=== PATIENT | male | born 1980 | race Caucasian/White ===

== ENCOUNTER 2018-07-26 15:20 | Inpatient (IN) ==
[2018-07-26] MEDS ORDERED: *HR* FentaNYL (PF) 100 MCG/2 ML VIAL IVP ONE ×2 (17:25→22:41)
[2018-07-26] MEDS ORDERED: 0.9 % Sodium Chloride 1,000 ML IVC ONE ×3 (17:25→23:55)
[2018-07-26] MEDS ORDERED: Isovue-370 500 ML BOTTLE IVP ONE (17:25)
--- NOTE | 2018-07-26 17:33 | Emergency Department Note ---
Disposition Clinical Impression: Leukocytosis, Lower abdominal pain Disposition: Still a Patient Condition: Good Referrals: Demi Rogers CNP [Primary Care Provider] - Forms: ED Satisfaction Letter, Work/School Release Abdominal Pain HPI - General Chief Complaint: ED Abdominal Pain Stated Complaint: ABD Pain Time Seen by Provider: 07/26/18 17:12 Source: patient Mode of arrival: private vehicle Limitations: no limitations Nursing Notes Reviewed: Yes Vital Signs Reviewed: Yes - History of Present Illness HPI Narrative: 38-year-old male presents to the ER with a complaint of abdominal pain. Symptoms began roughly 1 hour prior to arrival at work. Reports pain under his umbilicus to his suprapubic area. He denies any nausea vomiting or diarrhea. No fevers or chills. No chest pain or shortness of breath. Does report he had pain with urination immediately afterwards. No pain into his testicles. No prior abdominal surgical history. No other complaints. Pt Subjective Complaint: abdominal pain Onset (ago): hour(s) Consistency: constant Location: periumbilical, suprapubic Pain Scale: 9 Radiation: none Migration to: no migration Improves with: nothing Worsens with: nothing Associated symptoms: Reports: dysuria. Denies: nausea, vomiting, diarrhea, fever, hematuria Treatments prior to arrival: none - Related Data Home Medications Medication Instructions Recorded Confirmed Losartan Potassium [Cozaar] 100 mg PO DAILY 01/07/17 01/07/17 RX: Triamterene/HCTZ 37.5/25mg 1 cap PO DAILY 01/07/17 01/07/17 [Dyazide] cloNIDine HCl [CloNIDine HCl] 0.1 mg PO HS PRN MDD >160/90 01/07/17 01/07/17 Previous Rx's Medication Instructions Recorded Ondansetron [Zofran] 8 mg SL Q8HR PRN #20 tablet 01/07/17 Oxycodone HCl/Acetaminophen 1 each PO Q4H PRN #28 tablet 01/07/17 [Percocet 10-325 mg Tablet] Rivaroxaban [Xarelto] 10 mg PO 1700 #20 tablet 01/07/17 Allergies Allergy/AdvReac Type Severity Reaction Status Date / Time YANA Inhibitors AdvReac Dizziness Verified 01/07/17 10:26 codeine AdvReac Vomiting Verified 01/07/17 10:26 All systems ED: reviewed and negative except as stated. Constitutional: Denies: fever, chills Cardiovascular: Denies: chest pain Respiratory: Denies: dyspnea Gastrointestinal: Reports: abdominal pain. Denies: nausea, vomiting, diarrhea Genitourinary: Reports: dysuria. Denies: hematuria, discharge, testicular pain Abdominal Pain PMH - Past Medical History Medical history: Reports: hypertension Male Surgical History: Reports: other Psychiatric history: Reports: no psych history - Social History Smoking status: Never smoker Alcohol use: Reports: none Drug use: Reports: none Physical Exam - General Limitations: no limitations General appearance: alert, in no apparent distress - Head Head exam: atraumatic, normocephalic, normal inspection - Eye Eye exam: Present: normal appearance - ENT ENT exam: normal exam - Neck Neck exam: Present: normal inspection - Chest Chest inspection: Present: normal inspection, symmetric chest wall rise - Respiratory Respiratory exam: Present: normal lung sounds bilaterally - Cardiovascular Cardiovascular exam: Present: regular rate, normal rhythm, normal heart sounds - Abdominal Exam Abdominal exam: Present: soft, tenderness (Patient has periumbilical and suprapubic tenderness). Absent: distention, guarding, rigidity - Extremities Exam Extremities exam: Present: normal inspection, full ROM - Expanded Upper Extremity Exam Shoulder exam: Present: normal inspection, full ROM Arm exam: Present: normal inspection, full ROM Elbow exam: Present: normal inspection, full ROM Forearm/Wrist exam: Present: normal inspection, full ROM Hand exam: Present: normal inspection, full ROM - Expanded Lower Extremity Exam Hip/Pelvis exam: Present: normal inspection, full ROM Upper leg exam: Present: normal inspection, full ROM Knee exam: Present: normal inspection, full ROM Lower leg exam: Present: normal inspection, full ROM Ankle exam: Present: normal inspection, full ROM Foot/toe exam: Present: normal inspection, full ROM - Skin Skin exam: Present: warm, dry Course Course Narrative: Patient seen and examined. Vital signs reviewed. Plan for CT imaging, labs, urinalysis. Vital Signs Temperature 98.3 F 07/26/18 15:51 Pulse Rate 91 07/26/18 15:51 Respiratory Rate 16 07/26/18 15:51 Blood Pressure 162/94 07/26/18 15:51 O2 Sat by Pulse Oximetry 94 07/26/18 15:51 Temperature 98.3 F 07/26/18 15:51 Pulse Rate 91 07/26/18 15:51 Respiratory Rate 16 07/26/18 15:51 Blood Pressure 162/94 07/26/18 15:51 O2 Sat by Pulse Oximetry 94 07/26/18 15:51 Oxygen Delivery Oxygen Delivery Room Air Abdominal Pain - MDM Narrative Medical decision making narrative: 38-year-old male presenting with lower abdominal pain. Currently has a leukocytosis. CT imaging pending at this point. Patient signed out to [facility] team pending final disposition. - Lab Data Lab results reviewed: Yes I reviewed the patient's lab results. Result diagrams: 07/26/18 17:22 07/26/18 17:22 Lab Results 07/26/18 07/26/18 Range/Units 17:22 17:22 WBC 21.8 H (4.3-11.1) K/mcL RBC 5.64 H (4.19-5.50) M/mcL Hgb 14.8 (12.9-16.9) g/dL Hct 47.6 (37.5-50.1) % MCV 84.4 (83.0-100.0) fL MCH 26.2 L (28.0-33.3) pg MCHC 31.1 L (31.6-35.5) g/dL RDW 15.0 H (11.5-14.5) % Plt Count 282 (140-400) K/mcL MPV 10.5 (9.4-12.4) fL Immature Gran % 0.4 (0-4) % Seg Neutrophils % 85.8 % Lymphocytes % 7.2 % Monocytes % 5.5 % Eosinophils % 0.9 % Basophils % 0.2 % Neutrophils # 18.7 H (1.6-8.9) K/mcL Lymphocytes # 1.6 (0.6-4.6) K/mcL Monocytes # 1.2 (0.0-1.3) K/mcL Eosinophils # 0.2 (0.0-0.6) K/mcL Basophils # 0.0 (0.0-0.2) K/mcL Sodium 137 (136-145) mEq/L Potassium 4.4 (3.5-5.1) mEq/L Chloride 105 (98-107) mEq/L Carbon Dioxide 29 (23-29) mEq/L BUN 17 (6-20) mg/dL Creatinine 1.24 (0.70-1.30) mg/dL Est GFR ( Amer) > 60 (> 60) Est GFR (Non-Af Amer) > 60 (> 60) BUN/Creatinine Ratio 14 (6-26) Glucose 142 H (70-105) mg/dL Calculated Osmolality 288 (280-300) Calcium 10.0 (8.6-10.3) mg/dL Total Bilirubin 0.4 (0.3-1.0) mg/dL Direct Bilirubin 0.1 (0.0-0.2) mg/dL Indirect Bilirubin 0.3 (0.0-1.2) mg/dL AST 42 H (13-39) Units/L ALT 81 H (7-52) Units/L Alkaline Phosphatase 73 (34-104) Units/L Serum Total Protein 7.6 (6.4-8.9) g/dL Albumin 4.4 (3.5-5.7) g/dL Globulin 3.2 (2.4-3.5) g/dL Albumin/Globulin Ratio 1.4 (1.1-2.2) Lipase 16 (11-82) Units/L S.B.A.R. - S.B.A.R. Situation: Demographics, MOA Background: Presenting Complaint, Relevant PMH, Meds, & Allergies Assessment: Course and respsone to treatment, Exam Concerns, Patient/Family Expectation, Pertinant Lab Results Recommendation: Barrier(s) to disposition, Recommendation based on pending studies, treatments, or consults S.B.A.R. Report Given to: Dr. Allan Attestation Statement - Attestation Attestation: Resident Attestation: I examined this patient and my medical decision making was reviewed with the Resident Physician. I agree with the documented findings, disposition and treatment plan as described except to the extent set forth below. We independently had [id number] contact with the patient. Patient presenting for evaluation of abdominal pain. Patient states abdominal pain started approximately 1 hour ago. Patient states lower abdomen suprapubic in nature radiating both right left lower quadrant. On exam the patient has significant tenderness the right lower quadrant with associated rebound tenderness. Patient undergoing further evaluation for possible appendicitis. Blood work and CT scan ordered. CT scan results and disposition signed out to Dr. Allan.
[2018-07-26 17:47] LABS: Basophils % 0.2 %; Eosinophils # 0.2 K/mcL (0.0-0.6); Eosinophils % 0.9 %; Hematocrit 47.6 % (37.5-50.1); Hemoglobin 14.8 g/dL (12.9-16.9); Immature Granulocytes % 0.4 % (0-4); Lymphocytes # 1.6 K/mcL (0.6-4.6); Lymphocytes % 7.2 %; Mean Corpuscular HGB Conc 31.1 g/dL (31.6-35.5); Mean Corpuscular Hemoglobin 26.2 pg (28.0-33.3); Mean Corpuscular Volume 84.4 fL (83.0-100.0); Mean Platelet Volume 10.5 fL (9.4-12.4); Monocytes # 1.2 K/mcL (0.0-1.3); Monocytes % 5.5 %; Neutrophils # 18.7 K/mcL (1.6-8.9); Platelet Count 282 K/mcL (140-400); Red Blood Count 5.64 M/mcL (4.19-5.50); Segmented Neutrophils % 85.8 %
[2018-07-26 18:00] LABS: Alanine Aminotransferase 81 Units/L (7-52); Albumin 4.4 g/dL (3.5-5.7); Albumin/Globulin Ratio 1.4 (1.1-2.2); Alkaline Phosphatase 73 Units/L (34-104); Aspartate Amino Transferase 42 Units/L (13-39); BUN/Creatinine Ratio 14 (6-26); Bilirubin,Direct 0.1 mg/dL (0.0-0.2); Bilirubin,Indirect 0.3 mg/dL (0.0-1.2); Bilirubin,Total 0.4 mg/dL (0.3-1.0); Blood Urea Nitrogen 17 mg/dL (6-20); Carbon Dioxide 29 mEq/L (23-29); Chloride 105 mEq/L (98-107); Globulin 3.2 g/dL (2.4-3.5); Glucose 142 mg/dL (70-105); Lipase 16 Units/L (11-82); Osmolality,Calculated 288 (280-300); Potassium 4.4 mEq/L (3.5-5.1); Sodium 137 mEq/L (136-145); Total Protein 7.6 g/dL (6.4-8.9); eGFR For Non-African Americans > 60 (> 60)
--- NOTE | 2018-07-26 18:51 | Emergency Department Note ---
Disposition Clinical Impression: Perforation of intestine due to diverticulitis of gastrointestinal tract Leukocytosis Qualifiers: Leukocytosis type: unspecified Qualified Code(s): D72.829 - Elevated white blood cell count, unspecified Disposition: Admitted As Inpatient Condition: Fair Referrals: Demi Rogers CNP [Primary Care Provider] - Forms: ED Satisfaction Letter, Work/School Release General Adult HPI - General Chief complaint: ED Abdominal Pain Stated complaint: ABD Pain Time Seen by Provider: 07/26/18 17:12 Source: patient Mode of arrival: private vehicle Limitations: no limitations - History of Present Illness Pain Scale: 9 - Related Data Home Medications Medication Instructions Recorded Confirmed Losartan Potassium [Cozaar] 100 mg PO DAILY 01/07/17 01/07/17 Triamterene/HCTZ 37.5/25mg 1 cap PO DAILY 01/07/17 01/07/17 [Dyazide] cloNIDine HCl [CloNIDine HCl] 0.1 mg PO HS PRN MDD >160/90 01/07/17 01/07/17 Previous Rx's Medication Instructions Recorded Ondansetron [Zofran] 8 mg SL Q8HR PRN #20 tablet 01/07/17 Oxycodone HCl/Acetaminophen 1 each PO Q4H PRN #28 tablet 01/07/17 [Percocet 10-325 mg Tablet] Rivaroxaban [Xarelto] 10 mg PO 1700 #20 tablet 01/07/17 Allergies Allergy/AdvReac Type Severity Reaction Status Date / Time YANA Inhibitors AdvReac Dizziness Verified 01/07/17 10:26 codeine AdvReac Vomiting Verified 01/07/17 10:26 Constitutional: Denies: fever, chills Cardiovascular: Denies: chest pain Respiratory: Denies: dyspnea Gastrointestinal: Reports: abdominal pain. Denies: nausea, vomiting, diarrhea Genitourinary: Reports: dysuria. Denies: hematuria, discharge, testicular pain Past Medical History - Past Medical History Medical history: Reports: hypertension Surgical history: Reports: non-contributory Psychiatric history: Reports: no psych history - Social History Smoking Status: Never smoker Smokeless Tobacco Status: No Alcohol use: Reports: none Drug use: Reports: none Physical Exam - General Limitations: no limitations General appearance: alert, in no apparent distress Course Vital Signs Temperature 98.3 F 07/26/18 15:51 Pulse Rate 91 07/26/18 15:51 Respiratory Rate 16 07/26/18 15:51 Blood Pressure 162/94 07/26/18 15:51 O2 Sat by Pulse Oximetry 94 07/26/18 15:51 Temperature 98.3 F 07/26/18 15:51 Pulse Rate 91 07/26/18 15:51 Respiratory Rate 16 07/26/18 15:51 Blood Pressure 162/94 07/26/18 15:51 O2 Sat by Pulse Oximetry 94 07/26/18 15:51 Oxygen Delivery Oxygen Delivery Room Air Medical Decision Making - Lab Data Result diagrams: 07/26/18 17:22 07/26/18 17:22 Lab Results 07/26/18 07/26/18 07/26/18 Range/Units 17:22 17:22 18:09 WBC 21.8 H (4.3-11.1) K/mcL RBC 5.64 H (4.19-5.50) M/mcL Hgb 14.8 (12.9-16.9) g/dL Hct 47.6 (37.5-50.1) % MCV 84.4 (83.0-100.0) fL MCH 26.2 L (28.0-33.3) pg MCHC 31.1 L (31.6-35.5) g/dL RDW 15.0 H (11.5-14.5) % Plt Count 282 (140-400) K/mcL MPV 10.5 (9.4-12.4) fL Immature Gran % 0.4 (0-4) % Seg Neutrophils % 85.8 % Lymphocytes % 7.2 % Monocytes % 5.5 % Eosinophils % 0.9 % Basophils % 0.2 % Neutrophils # 18.7 H (1.6-8.9) K/mcL Lymphocytes # 1.6 (0.6-4.6) K/mcL Monocytes # 1.2 (0.0-1.3) K/mcL Eosinophils # 0.2 (0.0-0.6) K/mcL Basophils # 0.0 (0.0-0.2) K/mcL Sodium 137 (136-145) mEq/L Potassium 4.4 (3.5-5.1) mEq/L Chloride 105 (98-107) mEq/L Carbon Dioxide 29 (23-29) mEq/L BUN 17 (6-20) mg/dL Creatinine 1.24 (0.70-1.30) mg/dL Est GFR ( Amer) > 60 (> 60) Est GFR (Non-Af Amer) > 60 (> 60) BUN/Creatinine Ratio 14 (6-26) Glucose 142 H (70-105) mg/dL Calculated Osmolality 288 (280-300) Calcium 10.0 (8.6-10.3) mg/dL Total Bilirubin 0.4 (0.3-1.0) mg/dL Direct Bilirubin 0.1 (0.0-0.2) mg/dL Indirect Bilirubin 0.3 (0.0-1.2) mg/dL AST 42 H (13-39) Units/L ALT 81 H (7-52) Units/L Alkaline Phosphatase 73 (34-104) Units/L Serum Total Protein 7.6 (6.4-8.9) g/dL Albumin 4.4 (3.5-5.7) g/dL Globulin 3.2 (2.4-3.5) g/dL Albumin/Globulin Ratio 1.4 (1.1-2.2) Lipase 16 (11-82) Units/L Urine Color Yellow (Yellow) Urine Clarity Clear (Clear) Urine pH 5.5 (5.0-8.0) pH Units Ur Specific [place] 1.022 (1.010-1.025) Urine Protein Negative (Neg-Trace) mg/dL Urine Glucose (UA) Normal (Normal) mg/dL Urine Ketones Negative (Negative) mg/dL Urine Blood Negative (Negative) Urine Nitrite Negative (Negative) Urine Bilirubin Negative (Negative) Urine Urobilinogen Normal (Normal) mg/dL Ur Leukocyte Esterase Negative (Negative) Ur Culture Indicated? NO (NO) Attestation Statement - Attestation Attestation: I examined this patient and my medical decision-making was reviewed with the Resident Physician. I agree with the documented findings, disposition and treatment plan as described except to the extent set forth below. Patient signed out pending CT. Patient reevaluated. He is resting comfortably but at this time. CT pending. CT shows a perforated sigmoid diverticulitis. Patient is given IV Zosyn. Admitted to surgery. Abdomen/Pelvis CT 07/26/18 17:25 IMPRESSION: Perforated sigmoid diverticulitis. Scattered foci of intraperitoneal air throughout the abdomen. Cholelithiasis. D/ / Rich Soria MD / Rich Soria MD Interpreting Provider: Rich Soria MD
[2018-07-26 18:53] LABS: Bilirubin,Urine Negative (Negative); Blood,Urine Negative (Negative); Clarity,Urine Clear (Clear); Color,Urine Yellow (Yellow); Glucose,Urine (UA) Normal (Normal); Ketones,Urine Negative (Negative); Leukocyte Esterase,Urine Negative (Negative); Nitrite,Urine Negative (Negative); PH,Urine 5.5 pH Units (5.0-8.0); Protein,Urine Negative (Neg-Trace); Specific Gravity,Urine 1.022 (1.010-1.025); Urobilinogen,Urine Normal (Normal)
--- NOTE | 2018-07-26 19:12 | Emergency Department Note ---
Addendum entered and electronically signed by Siena Davila DO 07/26/18 22:43: Updated on patient's vitals again. He remains tachycardic now in the 130s. He is now febrile as well. We will provide him with a gram of IV Tylenol. I spoke with the surgeon on-call again Dr. Louis. Her recommendations at this time where providing him with 1mg of dilaudid and obtaining an EKG to ensure that he is not atrial fibrillation. Patient has no history of atrial fibrillation. Does not use any anticoagulation. She has no further recommendations at this time. She is aware of the patient's vital signs. Addendum entered and electronically signed by Siena Davila DO 07/26/18 21:28: I was updated on the patient's vitals. He has now become tachycardic in the 120s. We will start a second liter of fluids. I updated the surgeon on-call Rajan Louis. No further recommendations at this time. Original Note: Disposition Clinical Impression: Perforation of intestine due to diverticulitis of gastrointestinal tract Leukocytosis Qualifiers: Leukocytosis type: unspecified Qualified Code(s): D72.829 - Elevated white blood cell count, unspecified Disposition: Admitted As Inpatient Condition: Fair Referrals: Demi Rogers CNP [Primary Care Provider] - Forms: ED Satisfaction Letter, Work/School Release General Adult HPI - General Chief complaint: ED Abdominal Pain Stated complaint: ABD Pain Time Seen by Provider: 07/26/18 17:12 Source: patient Mode of arrival: private vehicle Limitations: no limitations - History of Present Illness Pain Scale: 9 - Related Data Home Medications Medication Instructions Recorded Confirmed Losartan Potassium [Cozaar] 100 mg PO DAILY 01/07/17 01/07/17 Triamterene/HCTZ 37.5/25mg 1 cap PO DAILY 01/07/17 01/07/17 [Dyazide] cloNIDine HCl [CloNIDine HCl] 0.1 mg PO HS PRN MDD >160/90 01/07/17 01/07/17 Previous Rx's Medication Instructions Recorded Ondansetron [Zofran] 8 mg SL Q8HR PRN #20 tablet 01/07/17 Oxycodone HCl/Acetaminophen 1 each PO Q4H PRN #28 tablet 01/07/17 [Percocet 10-325 mg Tablet] Rivaroxaban [Xarelto] 10 mg PO 1700 #20 tablet 01/07/17 Allergies Allergy/AdvReac Type Severity Reaction Status Date / Time YANA Inhibitors AdvReac Dizziness Verified 01/07/17 10:26 codeine AdvReac Vomiting Verified 01/07/17 10:26 Constitutional: Denies: fever, chills Cardiovascular: Denies: chest pain Respiratory: Denies: dyspnea Gastrointestinal: Reports: abdominal pain. Denies: nausea, vomiting, diarrhea Genitourinary: Reports: dysuria. Denies: hematuria, discharge, testicular pain Past Medical History - Past Medical History Medical history: Reports: hypertension Surgical history: Reports: non-contributory Psychiatric history: Reports: no psych history - Social History Smoking Status: Never smoker Smokeless Tobacco Status: No Alcohol use: Reports: none Drug use: Reports: none Physical Exam - General Limitations: no limitations General appearance: alert, in no apparent distress Course Course Narrative: Patient signed out to me by the day team pending urine analysis and CT of abdomen and pelvis. Please refer to their documentation for entire history of present illness. In short patient presenting with lower abdominal pain. At this time patient remains alert and oriented 3 and hemodynamically stable. Disposition pending. Patient agrees with this plan. - Reevaluation(s) Reevaluation #1: Patient CT of abdomen and pelvis concerning for perforated diverticulitis. I spoke with the surgeon on-call Dr. Louis who agrees to accept the patient to her service. We will start the patient on Zosyn at this time. Patient remains alert and oriented 3 and hemodynamically stable. Patient states pain is well under control at this time. Vital Signs Temperature 98.3 F 07/26/18 15:51 Pulse Rate 91 07/26/18 15:51 Respiratory Rate 16 07/26/18 15:51 Blood Pressure 162/94 07/26/18 15:51 O2 Sat by Pulse Oximetry 94 07/26/18 15:51 Temperature 98.3 F 07/26/18 15:51 Pulse Rate 91 07/26/18 15:51 Respiratory Rate 16 07/26/18 15:51 Blood Pressure 162/94 07/26/18 15:51 O2 Sat by Pulse Oximetry 94 07/26/18 15:51 Oxygen Delivery Oxygen Delivery Room Air Medical Decision Making - Lab Data Result diagrams: 07/26/18 17:22 07/26/18 17:22 Lab Results 07/26/18 07/26/18 07/26/18 Range/Units 17:22 17:22 18:09 WBC 21.8 H (4.3-11.1) K/mcL RBC 5.64 H (4.19-5.50) M/mcL Hgb 14.8 (12.9-16.9) g/dL Hct 47.6 (37.5-50.1) % MCV 84.4 (83.0-100.0) fL MCH 26.2 L (28.0-33.3) pg MCHC 31.1 L (31.6-35.5) g/dL RDW 15.0 H (11.5-14.5) % Plt Count 282 (140-400) K/mcL MPV 10.5 (9.4-12.4) fL Immature Gran % 0.4 (0-4) % Seg Neutrophils % 85.8 % Lymphocytes % 7.2 % Monocytes % 5.5 % Eosinophils % 0.9 % Basophils % 0.2 % Neutrophils # 18.7 H (1.6-8.9) K/mcL Lymphocytes # 1.6 (0.6-4.6) K/mcL Monocytes # 1.2 (0.0-1.3) K/mcL Eosinophils # 0.2 (0.0-0.6) K/mcL Basophils # 0.0 (0.0-0.2) K/mcL Sodium 137 (136-145) mEq/L Potassium 4.4 (3.5-5.1) mEq/L Chloride 105 (98-107) mEq/L Carbon Dioxide 29 (23-29) mEq/L BUN 17 (6-20) mg/dL Creatinine 1.24 (0.70-1.30) mg/dL Est GFR ( Amer) > 60 (> 60) Est GFR (Non-Af Amer) > 60 (> 60) BUN/Creatinine Ratio 14 (6-26) Glucose 142 H (70-105) mg/dL Calculated Osmolality 288 (280-300) Calcium 10.0 (8.6-10.3) mg/dL Total Bilirubin 0.4 (0.3-1.0) mg/dL Direct Bilirubin 0.1 (0.0-0.2) mg/dL Indirect Bilirubin 0.3 (0.0-1.2) mg/dL AST 42 H (13-39) Units/L ALT 81 H (7-52) Units/L Alkaline Phosphatase 73 (34-104) Units/L Serum Total Protein 7.6 (6.4-8.9) g/dL Albumin 4.4 (3.5-5.7) g/dL Globulin 3.2 (2.4-3.5) g/dL Albumin/Globulin Ratio 1.4 (1.1-2.2) Lipase 16 (11-82) Units/L Urine Color Yellow (Yellow) Urine Clarity Clear (Clear) Urine pH 5.5 (5.0-8.0) pH Units Ur Specific [place] 1.022 (1.010-1.025) Urine Protein Negative (Neg-Trace) mg/dL Urine Glucose (UA) Normal (Normal) mg/dL Urine Ketones Negative (Negative) mg/dL Urine Blood Negative (Negative) Urine Nitrite Negative (Negative) Urine Bilirubin Negative (Negative) Urine Urobilinogen Normal (Normal) mg/dL Ur Leukocyte Esterase Negative (Negative) Ur Culture Indicated? NO (NO)
[2018-07-26] MEDS ORDERED: Piperacillin/Tazobactam 3.375 GM in 0.9 % Sodium Chloride Mini Bag 100 ML IVPB ONE (19:42)
[2018-07-26 22:05] LABS: Prothrombin Time 11.8 Seconds (9.4-12.1)
[2018-07-26] MEDS ORDERED: Acetaminophen IV 1,000 MG/100 ML INFUS..BTL IVPB ONE (22:38)
[2018-07-26] MEDS ORDERED: *HR* HYDROmorphone (PF) 1 MG/ML SYRINGE IVP ONE (22:42)
[2018-07-26] MEDS ORDERED: OXYCODONE Oral CONC 10 MG/0.5 ML ORAL.SYG SL PRN (23:52)
[2018-07-26] MEDS ORDERED: *HR* Promethazine 25 MG/ML VIAL IVP PRN (23:52)
[2018-07-26] MEDS ORDERED: Naloxone 0.4 MG/ML INJ IVP PRN (23:52)
[2018-07-26] MEDS ORDERED: Ondansetron 4 MG/2 ML VIAL IVP PRN (23:52)
[2018-07-27] MEDS ORDERED: Acetaminophen IV 1,000 MG/100 ML INFUS..BTL IVPB SCH
[2018-07-27] MEDS ORDERED: Piperacillin/Tazobactam 3.375 GM in 0.9 % Sodium Chloride Mini Bag 100 ML IVPB SCH
[2018-07-27] MEDS ORDERED: 0.9 % Sodium Chloride 1,000 ML ONE (00:05)
[2018-07-27] MEDS: Fluconazole 200 MG/100 ML 200 MG/100 ML BAG IVPB SCH ×2 (00:55→07:23)
[2018-07-27] MEDS: 0.9 % Sodium Chloride 1,000 ML IVC SCH ×4 (00:58→23:47)
[2018-07-27 03:05] LABS: Basophils % 0.1 %; Hematocrit 39.9 % (37.5-50.1); Immature Granulocytes % 0.4 % (0-4); Lymphocytes # 1.7 K/mcL (0.6-4.6); Lymphocytes % 8.6 %; Mean Corpuscular HGB Conc 32.3 g/dL (31.6-35.5); Mean Corpuscular Hemoglobin 27.2 pg (28.0-33.3); Mean Corpuscular Volume 84.2 fL (83.0-100.0); Mean Platelet Volume 10.4 fL (9.4-12.4); Monocytes # 1.4 K/mcL (0.0-1.3); Neutrophils # 16.9 K/mcL (1.6-8.9); Platelet Count 245 K/mcL (140-400); Red Blood Count 4.74 M/mcL (4.19-5.50); Red Cell Distribution Width 15.5 % (11.5-14.5); Segmented Neutrophils % 83.9 %
[2018-07-27 03:06] LABS: Hemoglobin 12.9 g/dL (12.9-16.9)
[2018-07-27 03:25] LABS: BUN/Creatinine Ratio 16 (6-26); Blood Urea Nitrogen 20 mg/dL (6-20); Calcium 8.2 mg/dL (8.6-10.3); Carbon Dioxide 24 mEq/L (23-29); Chloride 108 mEq/L (98-107); Glucose 127 mg/dL (70-105); Magnesium 1.8 mg/dL (1.6-2.6); Osmolality,Calculated 294 (280-300); Phosphorous 5.4 mg/dL (2.7-4.5); Potassium 4.1 mEq/L (3.5-5.1); Sodium 140 mEq/L (136-145); eGFR For Non-African Americans > 60 (> 60)
[2018-07-27] MEDS: Piperacillin/Tazobactam 3.375 GM in 0.9 % Sodium Chloride Mini Bag 100 ML IVPB SCH ×3 (04:32→19:59)
[2018-07-27] MEDS: Acetaminophen IV 1,000 MG/100 ML INFUS..BTL IVPB SCH ×3 (05:21→17:30)
[2018-07-27] MEDS: OXYCODONE Oral CONC 10 MG/0.5 ML ORAL.SYG SL PRN ×4 (07:22→23:20)
[2018-07-27] MEDS: Pantoprazole 40 MG VIAL IVP SCH (07:23)
--- NOTE | 2018-07-27 09:39 | General Surg History&Physical ---
Date of Encounter: 07/27/18 Time of Encounter: 09:35 Assessment and Plan (1) Perforation of sigmoid colon due to diverticulitis Current Visit: Yes Status: Acute The assessment and plan as outlined above was discussed with the patient and/or family members who expressed understanding and agreement. All questions were answered. Discussed with patient that I have personally reviewed his CT results and he has acute perforated diverticulitis with small areas of free air. It is encouraging he has less pain today. Discussed that ideally I would like to get him over this episode of diverticulitis with medical management and plan outpatient colonoscopy. Discussed there is a possibility he could fail conservative therapy and require surgery which would be a Silvia procedure. He could develop intra- abdominal abscess that may require IR drainage or prolonged Abx therapy. He expressed understanding conservative therapy currently antibiotics prn pain control npo ok ice chips ivf hydration prn antiemetics serial abdominal exams gi/dvt prophylaxis ambulation (2) HTN (hypertension) Current Visit: Yes Status: Chronic The assessment and plan as outlined above was discussed with the patient and/or family members who expressed understanding and agreement. All questions were answered. monitor continue home meds Qualifiers: Hypertension type: essential hypertension Qualified Code(s): I10 - Essential (primary) hypertension (3) Obesity Current Visit: Yes Status: Chronic The assessment and plan as outlined above was discussed with the patient and/or family members who expressed understanding and agreement. All questions were answered. Qualifiers: Obesity type: due to excess calories Serious obesity comorbidity presence: with serious comorbidity Body mass index: BMI 40.0-44.9 Qualified Code(s): E66.01 - Morbid (severe) obesity due to excess calories; Z68.41 - Body mass index (BMI) 40.0-44.9, adult (4) Leukocytosis Current Visit: Yes Status: Acute The assessment and plan as outlined above was discussed with the patient and/or family members who expressed understanding and agreement. All questions were answered. trend wbc, continue abx - zosyn, diflucan Qualifiers: Leukocytosis type: unspecified Qualified Code(s): D72.829 - Elevated white blood cell count, unspecified History of Present Illness Chief complaint: lower abdominal pain HPI: Mr. Liao is a 38 year old male who started having lower abdominal pain, severe, yesterday about 3 pm. Pain started suddenly, no radiation. Some nausea but no emesis. No diarrhea. He felt like he needed to use the bathroom, no results. Has had a bm in the last 24 hrs, no melena or hematochezia. No diarrhea or constipation. No previous colonoscopy. Never had diverticulitis before. Swe ats but no fevers. Came to ED and CT was done showing perforated diverticulitis with punctate areas near colon and other small pockets free air, with sigmoid diverticulitis. WBC elevated. GERALD with elevated Cr Today he feels better than when he presented to the ED. Pain is not gone but is better and he is less tender per patient. No nausea or emesis. Still passing flatus. Patient denies he takes xarelto Past Med Surg Social Fam HX - Past Medical History Source: patient Medical history: hypertension, other (obesity) Psychiatric history: no psych history - Past Surgical History Surgical History: other (see below) Additional surgical history: fx rt tib/fib. fx both hand fx. nasal fx. t&A - Social History Smoking Status: Never smoker Smokeless Tobacco Status: Yes (Daily) Alcohol use: none Drug use: none Occupational status: employed Current living situation: Home - Independent Activity Level: Independent ambulation Medications and Allergies Losartan Potassium [Cozaar] 100 mg PO DAILY 01/07/17 [History] Ondansetron [Zofran] 8 mg SL Q8HR PRN #20 tablet 01/07/17 [Rx] Oxycodone HCl/Acetaminophen [Percocet 10-325 mg Tablet] 1 each PO Q4H PRN #28 tablet 01/07/17 [Rx] RX: Triamterene/HCTZ 37.5/25mg [Dyazide] 1 cap PO DAILY 01/07/17 [History] Rivaroxaban [Xarelto] 10 mg PO 1700 #20 tablet 01/07/17 [Rx] cloNIDine HCl [CloNIDine HCl] 0.1 mg PO HS PRN MDD >160/90 01/07/17 [History] Allergy/AdvReac Type Severity Reaction Status Date / Time YANA Inhibitors AdvReac Dizziness Verified 01/07/17 10:26 codeine AdvReac Vomiting Verified 01/07/17 10:26 Review of Systems All systems PM: reviewed and no additional remarkable complaints except as stated All systems PM: The remainder of the systems were reviewed and are negative General Surgery Exam Initial Vital Signs Temp Pulse Resp BP Pulse Ox 98.3 F 91 16 162/94 94 07/26/18 15:51 07/26/18 15:51 07/26/18 15:51 07/26/18 15:51 07/26/18 15:51 - General physical appearance well developed, well nourished, no distress, obese - Eyes PERRL, normal ocular movement - ENT normal mucosa, normocephalic - Neck trachea midline - Respiratory normal expansion, clear to auscultation - Cardiovascular Cardiovascular exam: Present: RRR - Abdomen Abdomen general surgery: Present: bowel sounds present, soft, distended, tender. Absent: guarding, rebound Abdominal Tenderness: Present: RLQ, LLQ - Integumentary Integumentary general surgery: Present: warm and dry - Neurologic Present: CN 2-12 grossly intact - Musculoskeletal Present: normal posture - Psychiatric Psychiatric general surgery: Present: A&Ox3 Results - Labs 07/27/18 02:54 07/27/18 02:54 Abnormal lab results WBC 20.2 K/mcL (4.3-11.1) H 07/27/18 02:54 MCH 27.2 pg (28.0-33.3) L 07/27/18 02:54 RDW 15.5 % (11.5-14.5) H 07/27/18 02:54 Neutrophils # 16.9 K/mcL (1.6-8.9) H 07/27/18 02:54 Monocytes # 1.4 K/mcL (0.0-1.3) H 07/27/18 02:54 Chloride 108 mEq/L (98-107) H 07/27/18 02:54 Glucose 127 mg/dL (70-105) H 07/27/18 02:54 Calcium 8.2 mg/dL (8.6-10.3) L 07/27/18 02:54 Phosphorus 5.4 mg/dL (2.7-4.5) H 07/27/18 02:54 AST 42 Units/L (13-39) H 07/26/18 17:22 ALT 81 Units/L (7-52) H 07/26/18 17:22 Diabetes panel 07/26/18 07/27/18 Range/Units 17:22 02:54 Sodium 137 140 (136-145) mEq/L Potassium 4.4 4.1 (3.5-5.1) mEq/L Chloride 105 108 H (98-107) mEq/L Carbon Dioxide 29 24 (23-29) mEq/L BUN 17 20 (6-20) mg/dL Creatinine 1.24 1.23 (0.70-1.30) mg/dL Glucose 142 H 127 H (70-105) mg/dL Calcium 10.0 8.2 L (8.6-10.3) mg/dL AST 42 H (13-39) Units/L ALT 81 H (7-52) Units/L Alkaline Phosphatase 73 (34-104) Units/L Albumin 4.4 (3.5-5.7) g/dL Calcium panel 07/26/18 07/27/18 Range/Units 17:22 02:54 Calcium 10.0 8.2 L (8.6-10.3) mg/dL Phosphorus 5.4 H (2.7-4.5) mg/dL Albumin 4.4 (3.5-5.7) g/dL Pituitary panel 07/26/18 07/27/18 Range/Units 17:22 02:54 Sodium 137 140 (136-145) mEq/L Potassium 4.4 4.1 (3.5-5.1) mEq/L Chloride 105 108 H (98-107) mEq/L Carbon Dioxide 29 24 (23-29) mEq/L BUN 17 20 (6-20) mg/dL Creatinine 1.24 1.23 (0.70-1.30) mg/dL Glucose 142 H 127 H (70-105) mg/dL Calcium 10.0 8.2 L (8.6-10.3) mg/dL Adrenal panel 07/26/18 07/27/18 Range/Units 17:22 02:54 Sodium 137 140 (136-145) mEq/L Potassium 4.4 4.1 (3.5-5.1) mEq/L Chloride 105 108 H (98-107) mEq/L Carbon Dioxide 29 24 (23-29) mEq/L BUN 17 20 (6-20) mg/dL Creatinine 1.24 1.23 (0.70-1.30) mg/dL Glucose 142 H 127 H (70-105) mg/dL Calcium 10.0 8.2 L (8.6-10.3) mg/dL Total Bilirubin 0.4 (0.3-1.0) mg/dL AST 42 H (13-39) Units/L ALT 81 H (7-52) Units/L Alkaline Phosphatase 73 (34-104) Units/L Albumin 4.4 (3.5-5.7) g/dL All other labs normal. - Imaging CT scan - abdomen: report reviewed, image reviewed CT scan - pelvis: report reviewed, image reviewed
[2018-07-27] MEDS: cloNIDine HCl 0.1 MG TABLET PO PRN (23:19)
[2018-07-28] MEDS: Acetaminophen IV 1,000 MG/100 ML INFUS..BTL IVPB SCH ×5 (00:30→23:33)
[2018-07-28] MEDS: Piperacillin/Tazobactam 3.375 GM in 0.9 % Sodium Chloride Mini Bag 100 ML IVPB SCH ×3 (03:54→19:22)
[2018-07-28 05:42] LABS: Basophils % 0.2 %; Eosinophils # 0.1 K/mcL (0.0-0.6); Eosinophils % 0.4 %; Hemoglobin 12.3 g/dL (12.9-16.9); Immature Granulocytes % 0.6 % (0-4); Lymphocytes # 1.4 K/mcL (0.6-4.6); Lymphocytes % 7.7 %; Mean Corpuscular HGB Conc 31.5 g/dL (31.6-35.5); Mean Corpuscular Volume 85.7 fL (83.0-100.0); Mean Platelet Volume 10.8 fL (9.4-12.4); Monocytes # 1.1 K/mcL (0.0-1.3); Monocytes % 6.1 %; Neutrophils # 15.8 K/mcL (1.6-8.9); Platelet Count 210 K/mcL (140-400); Red Blood Count 4.55 M/mcL (4.19-5.50); Red Cell Distribution Width 15.9 % (11.5-14.5)
[2018-07-28 05:55] LABS: Magnesium 1.9 mg/dL (1.6-2.6); Phosphorous 3.7 mg/dL (2.7-4.5)
[2018-07-28 05:56] LABS: BUN/Creatinine Ratio 14 (6-26); Blood Urea Nitrogen 17 mg/dL (6-20); Calcium 8.6 mg/dL (8.6-10.3); Carbon Dioxide 26 mEq/L (23-29); Chloride 105 mEq/L (98-107); Glucose 92 mg/dL (70-105); Osmolality,Calculated 291 (280-300); Potassium 3.8 mEq/L (3.5-5.1); Sodium 140 mEq/L (136-145); eGFR For Non-African Americans > 60 (> 60)
[2018-07-28] MEDS: 0.9 % Sodium Chloride 1,000 ML IVC SCH ×3 (07:26→23:33)
[2018-07-28] MEDS: Fluconazole 200 MG/100 ML 200 MG/100 ML BAG IVPB SCH (07:27)
[2018-07-28] MEDS: Pantoprazole 40 MG VIAL IVP SCH (07:29)
--- NOTE | 2018-07-28 09:40 | General Surgery Progress Note ---
<Ayanna Gupta - Last Filed: 07/28/18 09:38> Date of Encounter: 07/28/18 Time of Encounter: 09:20 - Assessment and Plan (1) Perforation of sigmoid colon due to diverticulitis Current Visit: Yes Status: Acute CT showed acute perforated diverticulitis with small areas of free air Today, patient feels better. Abdominal pain is improved. Fever 100.7 last night. Conservative therapy currently Plan for colonoscopy as outpatient Continue antibiotics - zosyn + diflucan prn pain control ivf hydration prn antiemetics serial abdominal exams gi/dvt prophylaxis ambulation (2) Leukocytosis Current Visit: Yes Status: Acute WBC downtrending Continue abx Continue to monitor Qualifiers: Leukocytosis type: unspecified Qualified Code(s): D72.829 - Elevated white blood cell count, unspecified Subjective Narrative: Patient seen and examined. He is resting comfortably in bed. Patient states he feels better today. Abdominal pain is still there but improved. Indicates pain at bilateral lower abdomen. No nausea/vomiting. Had a fever of 100.7 last night but patient does not recall having fever. Passing flatus. No bowel movement. Denies any other complaints. Patient requests to advance diet because he feels thirsty. Objective Vital Signs - Last 8 Hours Temp Pulse Resp BP Pulse Ox 07/28/18 07:18 98.2 F 91 16 125/81 96 07/28/18 02:05 98.5 F 96 15 138/84 100 Intake and Output 07/27/18 07/28/18 07/28/18 23:59 07:59 15:59 Intake Total 1900 / 1900 1300 / 1300 100 / 100 Output Total 650 / 650 650 / 650 Balance 1250 / 1250 650 / 650 100 / 100 Intake: IV Fluids 1900 / 1900 1300 / 1300 100 / 100 0.9 % Sodium Chloride 1,000 ML 1700 / 1700 1000 / 1000 @ 135 mls/hr IVC .Q7H25M [facility] Rx #:[id number] Ofirmev 1,000 mg/100 ml 1,000 100 / 100 200 / 200 mg In 100 ml @ 400 mls/hr IVPB Q6HR [facility] Rx#:[id number] Diflucan Premix 200 MG/100 ML 100 / 100 200 mg In 100 ml @ 100 mls/hr IVPB DAILY [facility] Rx#:[id number] Zosyn 3.375 GM In 0.9 % Sodium 100 / 100 100 / 100 Chloride (Mini-Bag +) 100 ML @ 25 mls/hr IVPB Q8H [facility] Rx#: [id number] Oral 0 / 0 Output: Urine 650 / 650 650 / 650 Other: Meal NPO Blood Glucose* 90 96 - Additional Exam VITAL SIGNS: Reviewed. See [facility] GENERAL: In no apparent distress. HEENT: Normocephalic, atraumatic, pupils are equal and reactive, extraocular motions intact, oral mucosa pink and moist. CHEST/RESPIRATORY: The thorax is free from signs of trauma. Lung sounds: clear to auscultation, normal respiratory effort CARDIAC: Regular rate and rhythm. Normal S1 and S2, without murmurs, gallops, or rubs. VASCULAR: No edema. ABDOMEN: Soft. Obese. Mild diffuse tenderness to palpation. Bowel sounds present. MUSCULOSKELETAL: Good range of motion of all major joints. Extremities without clubbing or cyanosis. NEUROLOGIC EXAM: Alert and oriented x 3. Speech normal. Follows commands. PSYCHIATRIC: Mood normal. SKIN: No rash or lesions. - Labs 07/28/18 03:37 07/28/18 03:37 Diabetes panel 07/28/18 Range/Units 03:37 Sodium 140 (136-145) mEq/L Potassium 3.8 (3.5-5.1) mEq/L Chloride 105 (98-107) mEq/L Carbon Dioxide 26 (23-29) mEq/L BUN 17 (6-20) mg/dL Creatinine 1.19 (0.70-1.30) mg/dL Glucose 92 (70-105) mg/dL Calcium 8.6 (8.6-10.3) mg/dL Calcium panel 07/28/18 07/28/18 Range/Units 03:37 03:37 Calcium 8.6 (8.6-10.3) mg/dL Phosphorus 3.7 (2.7-4.5) mg/dL Pituitary panel 07/28/18 Range/Units 03:37 Sodium 140 (136-145) mEq/L Potassium 3.8 (3.5-5.1) mEq/L Chloride 105 (98-107) mEq/L Carbon Dioxide 26 (23-29) mEq/L BUN 17 (6-20) mg/dL Creatinine 1.19 (0.70-1.30) mg/dL Glucose 92 (70-105) mg/dL Calcium 8.6 (8.6-10.3) mg/dL Adrenal panel 07/28/18 Range/Units 03:37 Sodium 140 (136-145) mEq/L Potassium 3.8 (3.5-5.1) mEq/L Chloride 105 (98-107) mEq/L Carbon Dioxide 26 (23-29) mEq/L BUN 17 (6-20) mg/dL Creatinine 1.19 (0.70-1.30) mg/dL Glucose 92 (70-105) mg/dL Calcium 8.6 (8.6-10.3) mg/dL Consult Discharge Plan - Plan Referrals: Demi Rogers, [facility] [Primary Care Provider] - <Tamiko Louis - Last Filed: 07/28/18 15:39> Date of Encounter: 07/28/18 - Assessment and Plan (1) Perforation of sigmoid colon due to diverticulitis Current Visit: Yes Status: Acute patient improving daily continue antibiotics ok start clears today low residue diet teaching continue ivf hydration prn pain control OOB chair with meals ok shower (2) HTN (hypertension) Current Visit: Yes Status: Chronic continue home meds Qualifiers: Hypertension type: essential hypertension Qualified Code(s): I10 - Essential (primary) hypertension (3) Obesity Current Visit: Yes Status: Chronic Qualifiers: Obesity type: due to excess calories Serious obesity comorbidity presence: with serious comorbidity Body mass index: BMI 40.0-44.9 (4) Leukocytosis Current Visit: Yes Status: Acute slowly improving, continue antibiotics continue trend wbc no bands Qualifiers: Leukocytosis type: unspecified Qualified Code(s): D72.829 - Elevated white blood cell count, unspecified Subjective Patient reports: no new complaints, feels better, still having pain, pain is less, flatus, no bowel movement, afebrile Objective Vital Signs - Last 8 Hours Temp Pulse Resp BP Pulse Ox 07/28/18 14:56 98.2 F 81 17 133/65 96 07/28/18 10:58 98.4 F 90 15 144/92 98 Intake and Output 07/27/18 07/28/18 07/28/18 23:59 07:59 15:59 Intake Total 1900 / 1900 1300 / 1300 1060 / 1060 Output Total 650 / 650 650 / 650 800 / 800 Balance 1250 / 1250 650 / 650 260 / 260 Intake: IV Fluids 1900 / 1900 1300 / 1300 700 / 700 0.9 % Sodium Chloride 1,000 ML 1700 / 1700 1000 / 1000 500 / 500 @ 135 mls/hr IVC .Q7H25M [facility] Rx #:[id number] Ofirmev 1,000 mg/100 ml 1,000 100 / 100 200 / 200 100 / 100 mg In 100 ml @ 400 mls/hr IVPB Q6HR [facility] Rx#:[id number] Diflucan Premix 200 MG/100 ML 100 / 100 200 mg In 100 ml @ 100 mls/hr IVPB DAILY [facility] Rx#:[id number] Zosyn 3.375 GM In 0.9 % Sodium 100 / 100 100 / 100 Chloride (Mini-Bag +) 100 ML @ 25 mls/hr IVPB Q8H [facility] Rx#: [id number] Oral 0 / 0 360 / 360 Output: Urine 650 / 650 650 / 650 800 / 800 Other: Meal NPO npo Blood Glucose* 90 96 90 - General physical appearance well developed, well nourished, no distress, no pain - Eyes PERRL, normal ocular movement - ENT normal mucosa, normocephalic - Respiratory normal expansion, normal respiratory effort - Cardiovascular Cardiovascular exam: Present: RRR - Abdomen Abdomen: Present: bowel sounds present, soft, tender. Absent: distended, guarding, rebound Abdominal Tenderness: LLQ - Integumentary no rash, no growths - Musculoskeletal normal posture - Psychiatric oriented to time, oriented to person, oriented to place, speech is normal, memory intact - Labs 07/28/18 03:37 07/28/18 03:37 Diabetes panel 07/28/18 Range/Units 03:37 Sodium 140 (136-145) mEq/L Potassium 3.8 (3.5-5.1) mEq/L Chloride 105 (98-107) mEq/L Carbon Dioxide 26 (23-29) mEq/L BUN 17 (6-20) mg/dL Creatinine 1.19 (0.70-1.30) mg/dL Glucose 92 (70-105) mg/dL Calcium 8.6 (8.6-10.3) mg/dL Calcium panel 07/28/18 07/28/18 Range/Units 03:37 03:37 Calcium 8.6 (8.6-10.3) mg/dL Phosphorus 3.7 (2.7-4.5) mg/dL Pituitary panel 07/28/18 Range/Units 03:37 Sodium 140 (136-145) mEq/L Potassium 3.8 (3.5-5.1) mEq/L Chloride 105 (98-107) mEq/L Carbon Dioxide 26 (23-29) mEq/L BUN 17 (6-20) mg/dL Creatinine 1.19 (0.70-1.30) mg/dL Glucose 92 (70-105) mg/dL Calcium 8.6 (8.6-10.3) mg/dL Adrenal panel 07/28/18 Range/Units 03:37 Sodium 140 (136-145) mEq/L Potassium 3.8 (3.5-5.1) mEq/L Chloride 105 (98-107) mEq/L Carbon Dioxide 26 (23-29) mEq/L BUN 17 (6-20) mg/dL Creatinine 1.19 (0.70-1.30) mg/dL Glucose 92 (70-105) mg/dL Calcium 8.6 (8.6-10.3) mg/dL - Attending Attestation I examined this patient and my medical decision-making was reviewed with the Resident Physician. I agree with the documented findings, disposition and treatment plan as described except to the extent set forth below.
--- NOTE | 2018-07-28 11:30 | Electrocardiograph Report ---
[address] [place] [address] Test Date: 2018-07-26 Pat Name: Kushal Liao Department: [id number] Room: 3A16 Gender: M Resource Specialist: : 1980 Requested By: Siena Davila Order Number: [id number] Reading MD: Bijal Chavez Measurements Intervals [place] Rate: 116 P: -17 RI: 149 QRS: 84 QRSD: 101 T: 84 QT: 350 QTc: 487 Interpretive Statements Sinus tachycardia Electronically Signed On 07-28-2018 11:29:39 EST by Bijal Chavez
[2018-07-28] MEDS: OXYCODONE Oral CONC 10 MG/0.5 ML ORAL.SYG SL PRN ×3 (11:34→20:13)
[2018-07-28] MEDS: *HR* Heparin 5,000 UNIT/ML VIAL SQ SCH ×2 (13:49→20:15)
[2018-07-28] MEDS: cloNIDine HCl 0.1 MG TABLET PO PRN (13:49)
[2018-07-29] MEDS: Piperacillin/Tazobactam 3.375 GM in 0.9 % Sodium Chloride Mini Bag 100 ML IVPB SCH ×3 (03:39→20:53)
[2018-07-29] MEDS: Acetaminophen IV 1,000 MG/100 ML INFUS..BTL IVPB SCH ×3 (05:11→18:21)
[2018-07-29] MEDS: *HR* Heparin 5,000 UNIT/ML VIAL SQ SCH ×3 (05:11→20:52)
[2018-07-29 06:20] LABS: Basophils % 0.2 %; Eosinophils # 0.1 K/mcL (0.0-0.6); Eosinophils % 0.9 %; Hematocrit 38.8 % (37.5-50.1); Hemoglobin 12.2 g/dL (12.9-16.9); Immature Granulocytes % 0.7 % (0-4); Mean Corpuscular HGB Conc 31.4 g/dL (31.6-35.5); Mean Corpuscular Hemoglobin 26.8 pg (28.0-33.3); Mean Corpuscular Volume 85.1 fL (83.0-100.0); Mean Platelet Volume 10.7 fL (9.4-12.4); Monocytes # 0.9 K/mcL (0.0-1.3); Monocytes % 5.4 %; Neutrophils # 13.8 K/mcL (1.6-8.9); Platelet Count 208 K/mcL (140-400); Red Blood Count 4.56 M/mcL (4.19-5.50); Red Cell Distribution Width 15.3 % (11.5-14.5); Segmented Neutrophils % 86.8 %
[2018-07-29 06:39] LABS: BUN/Creatinine Ratio 13 (6-26); Blood Urea Nitrogen 13 mg/dL (6-20); Calcium 8.7 mg/dL (8.6-10.3); Carbon Dioxide 24 mEq/L (23-29); Chloride 105 mEq/L (98-107); Glucose 120 mg/dL (70-105); Osmolality,Calculated 287 (280-300); Potassium 3.7 mEq/L (3.5-5.1); Sodium 138 mEq/L (136-145); eGFR For Non-African Americans > 60 (> 60)
[2018-07-29] MEDS: 0.9 % Sodium Chloride 1,000 ML IVC SCH ×2 (07:07→19:20)
[2018-07-29] MEDS ORDERED: Isovue-370 500 ML BOTTLE IVP ONE (07:32)
[2018-07-29] MEDS: OXYCODONE Oral CONC 10 MG/0.5 ML ORAL.SYG SL PRN ×3 (08:03→21:39)
[2018-07-29] MEDS: Fluconazole 200 MG/100 ML 200 MG/100 ML BAG IVPB SCH (11:14)
[2018-07-29] MEDS: Pantoprazole 40 MG VIAL IVP SCH (11:14)
--- NOTE | 2018-07-29 11:39 | General Surgery Progress Note ---
<Griselda Wright - Last Filed: 07/29/18 12:52> Date of Encounter: 07/29/18 Time of Encounter: 12:52 - Assessment and Plan (1) Perforation of sigmoid colon due to diverticulitis Current Visit: Yes Status: Acute Repeat CT today is with two fluid collections. IR consulted for drain placement. Pt is NPO for procedure. May resume CLD when he returns. Continue services of treatments and discomfort management continue G.I. and DVT prophylaxis serial abdominal exams repeat a.m. labs incentive spirometry ambulation continue IV antibiotics fluid cultures pending per IR drain placement consideration for possible infectious disease consult pending (2) HTN (hypertension) Current Visit: Yes Status: Chronic Qualifiers: Hypertension type: essential hypertension Qualified Code(s): I10 - Essential (primary) hypertension (3) Obesity Current Visit: Yes Status: Chronic Qualifiers: Obesity type: due to excess calories Serious obesity comorbidity presence: with serious comorbidity Body mass index: BMI 40.0-44.9 Qualified Code(s): E66.01 - Morbid (severe) obesity due to excess calories; Z68.41 - Body mass index (BMI) 40.0-44.9, adult Subjective Patient reports: no new complaints, still having pain, pain is less, tolerating liquids well, voiding w/o difficulty, flatus, no bowel movement, afebrile Objective Vital Signs - Last 8 Hours Temp Pulse Resp BP Pulse Ox 07/29/18 10:38 98.6 F 102 19 153/102 96 07/29/18 06:29 98.4 F 85 15 126/78 97 07/29/18 04:11 99.0 F 85 16 161/91 98 Intake and Output 07/28/18 07/29/18 07/29/18 23:59 07:59 15:59 Intake Total 1200 / 1200 1200 / 1200 Output Total 250 / 250 600 / 600 0 / 0 Balance 950 / 950 600 / 600 0 / 0 Intake: IV Fluids 1200 / 1200 1200 / 1200 0.9 % Sodium Chloride 1,000 ML 1000 / 1000 1000 / 1000 @ 135 mls/hr IVC .Q7H25M [facility] Rx #:[id number] Ofirmev 1,000 mg/100 ml 1,000 100 / 100 200 / 200 mg In 100 ml @ 400 mls/hr IVPB Q6HR [facility] Rx#:[id number] Zosyn 3.375 GM In 0.9 % Sodium 100 / 100 Chloride (Mini-Bag +) 100 ML @ 25 mls/hr IVPB Q8H [facility] Rx#: [id number] Output: Urine 250 / 250 600 / 600 0 / 0 Other: Meal Dinner npo Percent of Meal Consumed 0% Stool Size Small Stool Consistency soft Stool Color Brown # Voids 1 - General physical appearance no distress - Eyes normal ocular movement - ENT normal nares, normal mucosa - Neck Neck exam: trachea midline - Respiratory normal expansion, normal respiratory effort, clear to auscultation - Cardiovascular Cardiovascular exam: Present: RRR, distant heart sounds - Abdomen Abdomen: Present: bowel sounds present, soft, tender, guarding Abdominal Tenderness: RLQ, LLQ Hernia: none - Integumentary no rash - Neurologic normal sensation - Musculoskeletal normal gait, normal posture - Psychiatric oriented to time, oriented to person, oriented to place, speech is normal, m [place] intact - Labs 07/29/18 05:40 07/29/18 05:40 Diabetes panel 07/29/18 Range/Units 05:40 Sodium 138 (136-145) mEq/L Potassium 3.7 (3.5-5.1) mEq/L Chloride 105 (98-107) mEq/L Carbon Dioxide 24 (23-29) mEq/L BUN 13 (6-20) mg/dL Creatinine 0.97 (0.70-1.30) mg/dL Glucose 120 H (70-105) mg/dL Calcium 8.7 (8.6-10.3) mg/dL Calcium panel 07/29/18 Range/Units 05:40 Calcium 8.7 (8.6-10.3) mg/dL Pituitary panel 07/29/18 Range/Units 05:40 Sodium 138 (136-145) mEq/L Potassium 3.7 (3.5-5.1) mEq/L Chloride 105 (98-107) mEq/L Carbon Dioxide 24 (23-29) mEq/L BUN 13 (6-20) mg/dL Creatinine 0.97 (0.70-1.30) mg/dL Glucose 120 H (70-105) mg/dL Calcium 8.7 (8.6-10.3) mg/dL Adrenal panel 07/29/18 Range/Units 05:40 Sodium 138 (136-145) mEq/L Potassium 3.7 (3.5-5.1) mEq/L Chloride 105 (98-107) mEq/L Carbon Dioxide 24 (23-29) mEq/L BUN 13 (6-20) mg/dL Creatinine 0.97 (0.70-1.30) mg/dL Glucose 120 H (70-105) mg/dL Calcium 8.7 (8.6-10.3) mg/dL Consult Discharge Plan - Plan Referrals: Demi Rogers, MIKAYLA [Primary Care Provider] - <Tamiko Louis - Last Filed: 07/31/18 19:57> Date of Encounter: 07/29/18 - Assessment and Plan (1) Perforation of sigmoid colon due to diverticulitis Current Visit: Yes Status: Acute CT scan done today shows RLQ abscess IR placed drain into, another smaller 2 cm focus small, behind small bowel loops, a third are in left posterior abdomen IR physician said was not walled off, couldnt drain/aspirate yet, recommended repeat CT in few days to see if walled off and could place drain versus aspirate continue Abx clears prn pain control OOB ambulate gi/dvt prophylaxis continue home meds patient doing well feels a little better after drain placement, tender at abdominal due to drain placement vitals stable, no fevers (2) HTN (hypertension) Current Visit: Yes Status: Chronic continue home medication Qualifiers: Hypertension type: essential hypertension Qualified Code(s): I10 - Essential (primary) hypertension (3) Obesity Current Visit: Yes Status: Chronic Qualifiers: Obesity type: due to excess calories Serious obesity comorbidity presence: with serious comorbidity Body mass index: BMI 40.0-44.9 Qualified Code(s): E66.01 - Morbid (severe) obesity due to excess calories; Z68.41 - Body mass index (BMI) 40.0-44.9, adult (4) Leukocytosis Current Visit: Yes Status: Acute improving slowly daily continue abx trend wbc Qualifiers: Leukocytosis type: unspecified Qualified Code(s): D72.829 - Elevated white blood cell count, unspecified Subjective Patient reports: feels better, still having pain, pain is less, tolerating liquids well, voiding w/o difficulty, flatus, no bowel movement Objective Vital Signs - Last 8 Hours Temp Pulse Resp BP Pulse Ox 07/31/18 19:45 98.0 F 88 28 119/78 96 07/31/18 17:16 99.6 F 114 20 146/80 94 07/31/18 14:53 99.1 F 117 18 117/65 95 07/31/18 12:55 101.2 F H 133 190/105 95 Intake and Output 07/31/18 07/31/18 07/31/18 07:59 15:59 23:59 Intake Total 1800 / 1800 900 / 900 Output Total 670 / 670 1225 / 1225 Balance 1130 / 1130 -325 / -325 Intake: IV Fluids 1800 / 1800 900 / 900 0.9 % Sodium Chloride 1,000 ML 1000 / 1000 @ 130 mls/hr IVC .Q7H42M [facility] Rx #:[id number] Ofirmev 1,000 mg/100 ml 1,000 200 / 200 100 / 100 mg In 100 ml @ 400 mls/hr IVPB Q6HR [facility] Rx#:[id number] Diflucan Premix 400 MG/200 ML 200 / 200 400 mg In 200 ml @ 200 mls/hr IVPB DAILY [facility] Rx#:[id number] Zosyn 3.375 GM In 0.9 % Sodium 100 / 100 100 / 100 Chloride (Mini-Bag +) 100 ML @ 25 mls/hr IVPB Q8H [facility] Rx#: [id number] Vancocin 2,000 MG In 0.9 % 500 / 500 500 / 500 Sodium Chloride 500 ML @ 250 mls/hr IVPB Q12H [facility] Rx#: [id number] Oral 0 / 0 Output: Urine 650 / 650 1200 / 1200 Wound Drainage 20 25 / 25 Right Lower Abdomen 20 25 / 25 Other: Stool Size Moderate Stool Consistency loose # Bowel Movements 1 Weight 149.6 kg Blood Glucose* 94 Patient Weight 07/31/18 23:59 Weight 149.6 kg - General physical appearance well developed, well nourished, no distress, no pain, obese - Eyes PERRL, normal ocular movement - ENT normal mucosa, normocephalic - Neck Neck exam: trachea midline - Respiratory normal expansion, normal respiratory effort, clear to auscultation - Cardiovascular Cardiovascular exam: Present: RRR - Abdomen Abdomen: Present: bowel sounds present, soft, tender (minimal LLQ, suprapubic discomfort with palpation). Absent: distended, guarding, rebound - Integumentary no rash - Neurologic CN 2-12 grossly intact - Musculoskeletal normal posture - Psychiatric oriented to time, oriented to person, oriented to place, speech is normal, memory intact - Labs 07/31/18 01:42 07/31/18 01:42 Diabetes panel 07/31/18 Range/Units 01:42 Sodium 139 (136-145) mEq/L Potassium 3.3 L (3.5-5.1) mEq/L Chloride 103 (98-107) mEq/L Carbon Dioxide 26 (23-29) mEq/L BUN 10 (6-20) mg/dL Creatinine 0.81 (0.70-1.30) mg/dL Glucose 99 (70-105) mg/dL Calcium 8.5 L (8.6-10.3) mg/dL Calcium panel 07/31/18 07/31/18 Range/Units 01:42 01:42 Calcium 8.5 L (8.6-10.3) mg/dL Phosphorus 2.9 (2.7-4.5) mg/dL Pituitary panel 07/31/18 Range/Units 01:42 Sodium 139 (136-145) mEq/L Potassium 3.3 L (3.5-5.1) mEq/L Chloride 103 (98-107) mEq/L Carbon Dioxide 26 (23-29) mEq/L BUN 10 (6-20) mg/dL Creatinine 0.81 (0.70-1.30) mg/dL Glucose 99 (70-105) mg/dL Calcium 8.5 L (8.6-10.3) mg/dL Adrenal panel 07/31/18 Range/Units 01:42 Sodium 139 (136-145) mEq/L Potassium 3.3 L (3.5-5.1) mEq/L Chloride 103 (98-107) mEq/L Carbon Dioxide 26 (23-29) mEq/L BUN 10 (6-20) mg/dL Creatinine 0.81 (0.70-1.30) mg/dL Glucose 99 (70-105) mg/dL Calcium 8.5 L (8.6-10.3) mg/dL - Imaging CT scan - abdomen: report reviewed, image reviewed CT scan - pelvis: report reviewed, image reviewed - Attending Attestation I have personally performed a face to face evaluation on this patient. I have reviewed and agree with the care plan. History and Exam by me shows:
[2018-07-29] MEDS ORDERED: 0.9 % Sodium Chloride 500 ML ONE (13:29)
[2018-07-29] MEDS ORDERED: *HR* Midazolam HCl 2 MG/2 ML VIAL ONE (13:33)
[2018-07-29] MEDS ORDERED: *HR* FentaNYL (PF) 100 MCG/2 ML VIAL ONE (13:33)
[2018-07-30] MEDS: Acetaminophen IV 1,000 MG/100 ML INFUS..BTL IVPB SCH ×4 (00:40→17:07)
[2018-07-30] MEDS: 0.9 % Sodium Chloride 1,000 ML IVC SCH ×4 (03:00→21:55)
[2018-07-30] MEDS: Piperacillin/Tazobactam 3.375 GM in 0.9 % Sodium Chloride Mini Bag 100 ML IVPB SCH ×3 (03:00→20:43)
[2018-07-30 05:18] LABS: Basophils % 0.1 %; Eosinophils # 0.3 K/mcL (0.0-0.6); Eosinophils % 1.7 %; Hematocrit 38.8 % (37.5-50.1); Hemoglobin 12.2 g/dL (12.9-16.9); Immature Granulocytes % 0.6 % (0-4); Lymphocytes # 1.1 K/mcL (0.6-4.6); Mean Corpuscular HGB Conc 31.4 g/dL (31.6-35.5); Mean Corpuscular Hemoglobin 26.3 pg (28.0-33.3); Mean Corpuscular Volume 83.8 fL (83.0-100.0); Mean Platelet Volume 10.8 fL (9.4-12.4); Monocytes % 6.7 %; Neutrophils # 12.9 K/mcL (1.6-8.9); Platelet Count 249 K/mcL (140-400); Red Blood Count 4.63 M/mcL (4.19-5.50); Segmented Neutrophils % 83.9 %
[2018-07-30 05:36] LABS: BUN/Creatinine Ratio 11 (6-26); Blood Urea Nitrogen 11 mg/dL (6-20); Calcium 8.6 mg/dL (8.6-10.3); Carbon Dioxide 24 mEq/L (23-29); Chloride 102 mEq/L (98-107); Glucose 95 mg/dL (70-105); Osmolality,Calculated 285 (280-300); Potassium 3.5 mEq/L (3.5-5.1); Sodium 138 mEq/L (136-145); eGFR For Non-African Americans > 60 (> 60)
[2018-07-30] MEDS: *HR* Heparin 5,000 UNIT/ML VIAL SQ SCH ×2 (05:38→13:20)
[2018-07-30] MEDS: OXYCODONE Oral CONC 10 MG/0.5 ML ORAL.SYG SL PRN ×3 (06:02→20:49)
[2018-07-30] MEDS: Fluconazole 200 MG/100 ML 200 MG/100 ML BAG IVPB SCH (09:43)
[2018-07-30] MEDS: Pantoprazole 40 MG VIAL IVP SCH (09:44)
--- NOTE | 2018-07-30 12:03 | General Surgery Progress Note ---
<Sahra Roberts - Last Filed: 07/30/18 12:00> Date of Encounter: 07/30/18 Time of Encounter: 11:45 - Assessment and Plan (1) Perforation of sigmoid colon due to diverticulitis Current Visit: Yes Status: Acute Continue with conservative management including: IV antibiotics- Zosyn and Diflucan Clear liquids IV fluids- decrease to 100ml/hour Serial abdominal exams Supportive care and pain control Continue pigtail drain placed per IR 07/29/18 Cultures- Gram positive cocci (final pending) Ambulate hallways TID with assistance IS every 1 hour while awake PPI therapy daily Repeat am labs- CBC, BMP (2) Leukocytosis Current Visit: Yes Status: Acute WBC- 15.9>15.4 Continue Pigtail drainage Fluid cultures pending- gram positive cocci Continue IV antibiotics Repeat am labs Qualifiers: Leukocytosis type: unspecified Qualified Code(s): D72.829 - Elevated white blood cell count, unspecified (3) Obesity Current Visit: Yes Status: Chronic Qualifiers: Obesity type: due to excess calories Serious obesity comorbidity presence: with serious comorbidity Body mass index: BMI 40.0-44.9 Qualified Code(s): E66.01 - Morbid (severe) obesity due to excess calories; Z68.41 - Body mass index (BMI) 40.0-44.9, adult (4) DVT prophylaxis Current Visit: Yes Status: Acute Heparin 5000 units subcutaneous 3 times a day for DVT prophylaxis Ambulate hallways 3 times a day with assistance EPCDs bilateral lower extremities for DVT prophylaxis Subjective Patient reports: no new complaints, feels better, still having pain, pain is less, tolerating liquids well, voiding w/o difficulty, flatus, no bowel movement, fever (Tmax 100.3; Tcurrent 98.1) Objective Vital Signs - Last 8 Hours Temp Pulse Resp BP Pulse Ox 07/30/18 10:42 98.1 F 88 15 146/93 97 07/30/18 06:48 98.5 F 85 15 157/93 96 Intake and Output 07/29/18 07/30/18 07/30/18 23:59 07:59 15:59 Intake Total 1200 / 1200 1400 / 1400 Output Total 1123 / 1123 805 / 805 Balance 77 / 77 1380 / 1380 -805 / -805 Intake: IV Fluids 1200 / 1200 1400 / 1400 0.9 % Sodium Chloride 1,000 ML 1000 / 1000 1000 / 1000 @ 135 mls/hr IVC .Q7H25M [facility] Rx #:[id number] Ofirmev 1,000 mg/100 ml 1,000 100 / 100 200 / 200 mg In 100 ml @ 400 mls/hr IVPB Q6HR [facility] Rx#:[id number] Zosyn 3.375 GM In 0.9 % Sodium 100 / 100 200 / 200 Chloride (Mini-Bag +) 100 ML @ 25 mls/hr IVPB Q8H [facility] Rx#: [id number] Output: Urine 1100 / 1100 0 / 0 800 / 800 Wound Drainage 5 5 Right Lower Abdomen 5 Other: Weight 149.2 kg Patient Weight 07/30/18 23:59 Weight 149.2 kg - General physical appearance well developed, well nourished, no distress, obese - Eyes normal ocular movement - ENT normal mucosa, atraumatic, normocephalic - Neck Neck exam: trachea midline - Respiratory normal respiratory effort, clear to auscultation - Cardiovascular Cardiovascular exam: Present: RRR - Abdomen Abdomen: Present: bowel sounds present, soft, tender, wound (RLQ drain to bulb suction with purulent drainage noted (approximately 30ml noted since midnight)) Abdominal Tenderness: RLQ, LLQ, suprapubic - Neurologic CN 2-12 grossly intact - Psychiatric oriented to time, oriented to person, oriented to place, speech is normal, memory intact - Labs 07/30/18 03:58 07/30/18 03:58 Diabetes panel 07/30/18 Range/Units 03:58 Sodium 138 (136-145) mEq/L Potassium 3.5 (3.5-5.1) mEq/L Chloride 102 (98-107) mEq/L Carbon Dioxide 24 (23-29) mEq/L BUN 11 (6-20) mg/dL Creatinine 0.96 (0.70-1.30) mg/dL Glucose 95 (70-105) mg/dL Calcium 8.6 (8.6-10.3) mg/dL Calcium panel 07/30/18 Range/Units 03:58 Calcium 8.6 (8.6-10.3) mg/dL Pituitary panel 07/30/18 Range/Units 03:58 Sodium 138 (136-145) mEq/L Potassium 3.5 (3.5-5.1) mEq/L Chloride 102 (98-107) mEq/L Carbon Dioxide 24 (23-29) mEq/L BUN 11 (6-20) mg/dL Creatinine 0.96 (0.70-1.30) mg/dL Glucose 95 (70-105) mg/dL Calcium 8.6 (8.6-10.3) mg/dL Adrenal panel 07/30/18 Range/Units 03:58 Sodium 138 (136-145) mEq/L Potassium 3.5 (3.5-5.1) mEq/L Chloride 102 (98-107) mEq/L Carbon Dioxide 24 (23-29) mEq/L BUN 11 (6-20) mg/dL Creatinine 0.96 (0.70-1.30) mg/dL Glucose 95 (70-105) mg/dL Calcium 8.6 (8.6-10.3) mg/dL - Imaging Additional Studies: Needle Aspiration CT 07/29/18 00:00 IMPRESSION: Successful CT guided placement of right lower quadrant abdominal abscess drainage catheter. D/ / Sae Avilez MD / Sae Avilez MD Interpreting Provider: Sae Avilez MD Abdomen/Pelvis CT 07/29/18 10:00 IMPRESSION: 1. Redemonstration of long segment of acute diverticulitis and additional findings consistent with provided history of perforated diverticulitis. 2. Interval development of a 6 cm rim enhancing air-fluid collection in the right lower quadrant representing abscess formation. 3. Marked progression of peritoneal fat stranding and traces of fluid now diffusely involving the pelvis and lower abdomen consistent with worsening peritoneal inflammatory changes. Additionally there 2 more discrete larger fluid pockets measuring 2.5 cm in the right lower quadrant and 5.6 cm in the left lower quadrant. 4. Redemonstration of diffuse scattered pockets of free intraperitoneal air slightly increased from prior consistent with the perforated diverticulitis. The findings were sent to the [facility] at 11:19 am on 07/29/2018to be communicated to a licensed caregiver. D/ / Troy Ho MD / Troy Ho MD Interpreting Provider: Troy Ho MD Consult Discharge Plan - Plan Referrals: Demi Rogers, BLANK DRILLER [Primary Care Provider] - - Attending Attestation For this encounter, I have reviewed the NOVELTY [employer]ER or PA documentation, treatment plan, and medical decision making; and I have had face to face time with this patient. <Tamiko Louis - Last Filed: 07/31/18 20:04> Date of Encounter: 07/30/18 Time of Encounter: 17:05 - Assessment and Plan (1) Perforation of sigmoid colon due to diverticulitis Current Visit: Yes Status: Acute discussed with patient that I am concerned his drain output may be feculent, review of CT guided drain yesterday shows contrast through rectosigmoid area without contrast in abscess collection, drain in good placement within abscess discussed that since pain is improved, afebrile, HR wnl and wbc decreasing will continue with conservative management but there is risk of failing conservative therapy requiring Silvia procedure, patient expressed understanding. added vanco, continue zosyn diflucan serial abdominal exams diet: sips water/ice/meds continue ivf hydration prn pain control gi/dvt prophylaxis ambulate may need TPN thursday continue home meds (2) HTN (hypertension) Current Visit: Yes Status: Chronic continue home meds monitor Qualifiers: Hypertension type: essential hypertension Qualified Code(s): I10 - Essential (primary) hypertension (3) Obesity Current Visit: Yes Status: Chronic Qualifiers: Obesity type: due to excess calories Serious obesity comorbidity presence: with serious comorbidity Body mass index: BMI 40.0-44.9 Qualified Code(s): E66.01 - Morbid (severe) obesity due to excess calories; Z68.41 - Body mass index (BMI) 40.0-44.9, adult (4) Leukocytosis Current Visit: Yes Status: Acute improving slowly continue abx added vanco trend Qualifiers: Leukocytosis type: unspecified Qualified Code(s): D72.829 - Elevated white blood cell count, unspecified Subjective Patient reports: no new complaints, feels better, still having pain, pain is less, tolerating liquids well, voiding w/o difficulty, flatus, bowel movement, fever Objective Vital Signs - Last 8 Hours Temp Pulse Resp BP Pulse Ox 07/31/18 19:45 98.0 F 88 28 119/78 96 07/31/18 17:16 99.6 F 114 20 146/80 94 07/31/18 14:53 99.1 F 117 18 117/65 95 07/31/18 12:55 101.2 F H 133 190/105 95 Intake and Output 07/31/18 07/31/18 07/31/18 07:59 15:59 23:59 Intake Total 1800 / 1800 900 / 900 Output Total 670 / 670 1225 / 1225 Balance 1130 / 1130 -325 / -325 Intake: IV Fluids 1800 / 1800 900 / 900 0.9 % Sodium Chloride 1,000 ML 1000 / 1000 @ 130 mls/hr IVC .Q7H42M [facility] Rx #:[id number] Ofirmev 1,000 mg/100 ml 1,000 200 / 200 100 / 100 mg In 100 ml @ 400 mls/hr IVPB Q6HR [facility] Rx#:[id number] Diflucan Premix 400 MG/200 ML 200 / 200 400 mg In 200 ml @ 200 mls/hr IVPB DAILY [facility] Rx#:[id number] Zosyn 3.375 GM In 0.9 % Sodium 100 / 100 100 / 100 Chloride (Mini-Bag +) 100 ML @ 25 mls/hr IVPB Q8H [facility] Rx#: [id number] Vancocin 2,000 MG In 0.9 % 500 / 500 500 / 500 Sodium Chloride 500 ML @ 250 mls/hr IVPB Q12H [facility] Rx#: [id number] Oral 0 / 0 Output: Urine 650 / 650 1200 / 1200 Wound Drainage 20 / 20 25 / 25 Right Lower Abdomen 20 25 / 25 Other: Stool Size Moderate Stool Consistency loose # Bowel Movements 1 Weight 149.6 kg Blood Glucose* 94 Patient Weight 07/31/18 23:59 Weight 149.6 kg - General physical appearance well developed, well nourished, no distress, obese - Eyes PERRL, normal ocular movement - ENT normal mucosa, normocephalic - Neck Neck exam: trachea midline - Respiratory normal expansion, normal respiratory effort - Cardiovascular Cardiovascular exam: Present: RRR - Abdomen Abdomen: Present: bowel sounds present, soft, tender. Absent: distended, guarding, rebound Abdominal Tenderness: RLQ, LLQ, suprapubic Additional Comments: IR placed intra-abscess drain - brown thin liquid, foul smelling - Integumentary no rash - Neurologic CN 2-12 grossly intact - Musculoskeletal normal posture - Psychiatric oriented to time, oriented to person, oriented to place, speech is normal, memory intact - Labs 07/31/18 01:42 07/31/18 01:42 Diabetes panel 07/31/18 Range/Units 01:42 Sodium 139 (136-145) mEq/L Potassium 3.3 L (3.5-5.1) mEq/L Chloride 103 (98-107) mEq/L Carbon Dioxide 26 (23-29) mEq/L BUN 10 (6-20) mg/dL Creatinine 0.81 (0.70-1.30) mg/dL Glucose 99 (70-105) mg/dL Calcium 8.5 L (8.6-10.3) mg/dL Calcium panel 07/31/18 07/31/18 Range/Units 01:42 01:42 Calcium 8.5 L (8.6-10.3) mg/dL Phosphorus 2.9 (2.7-4.5) mg/dL Pituitary panel 07/31/18 Range/Units 01:42 Sodium 139 (136-145) mEq/L Potassium 3.3 L (3.5-5.1) mEq/L Chloride 103 (98-107) mEq/L Carbon Dioxide 26 (23-29) mEq/L BUN 10 (6-20) mg/dL Creatinine 0.81 (0.70-1.30) mg/dL Glucose 99 (70-105) mg/dL Calcium 8.5 L (8.6-10.3) mg/dL Adrenal panel 07/31/18 Range/Units 01:42 Sodium 139 (136-145) mEq/L Potassium 3.3 L (3.5-5.1) mEq/L Chloride 103 (98-107) mEq/L Carbon Dioxide 26 (23-29) mEq/L BUN 10 (6-20) mg/dL Creatinine 0.81 (0.70-1.30) mg/dL Glucose 99 (70-105) mg/dL Calcium 8.5 L (8.6-10.3) mg/dL
[2018-07-30] MEDS ORDERED: 0.9 % Sodium Chloride 1,000 ML IVC SCH (12:13)
[2018-07-30] MEDS ORDERED: Fluconazole 200 MG/100 ML 200 MG/100 ML BAG IVPB ONE (12:21)
[2018-07-31] MEDS: Acetaminophen IV 1,000 MG/100 ML INFUS..BTL IVPB SCH ×5 (00:29→23:59)
[2018-07-31] MEDS: *HR* Heparin 5,000 UNIT/ML VIAL SQ SCH ×4 (00:30→21:42)
[2018-07-31 02:39] LABS: Basophils % 0.2 %; Eosinophils # 0.5 K/mcL (0.0-0.6); Eosinophils % 4.1 %; Hematocrit 36.8 % (37.5-50.1); Hemoglobin 11.7 g/dL (12.9-16.9); Immature Granulocytes % 0.9 % (0-4); Lymphocytes # 1.2 K/mcL (0.6-4.6); Lymphocytes % 9.1 %; Mean Corpuscular HGB Conc 31.8 g/dL (31.6-35.5); Mean Corpuscular Hemoglobin 26.5 pg (28.0-33.3); Mean Corpuscular Volume 83.4 fL (83.0-100.0); Mean Platelet Volume 10.5 fL (9.4-12.4); Monocytes # 0.8 K/mcL (0.0-1.3); Monocytes % 6.6 %; Neutrophils # 10.1 K/mcL (1.6-8.9); Platelet Count 252 K/mcL (140-400); Red Blood Count 4.41 M/mcL (4.19-5.50); Red Cell Distribution Width 14.8 % (11.5-14.5); Segmented Neutrophils % 79.1 %
[2018-07-31 02:54] LABS: Magnesium 1.8 mg/dL (1.6-2.6); Phosphorous 2.9 mg/dL (2.7-4.5)
[2018-07-31 02:58] LABS: BUN/Creatinine Ratio 12 (6-26); Blood Urea Nitrogen 10 mg/dL (6-20); Calcium 8.5 mg/dL (8.6-10.3); Carbon Dioxide 26 mEq/L (23-29); Chloride 103 mEq/L (98-107); Glucose 99 mg/dL (70-105); Osmolality,Calculated 287 (280-300); Potassium 3.3 mEq/L (3.5-5.1); Sodium 139 mEq/L (136-145); eGFR For Non-African Americans > 60 (> 60)
[2018-07-31] MEDS: Piperacillin/Tazobactam 3.375 GM in 0.9 % Sodium Chloride Mini Bag 100 ML IVPB SCH ×3 (05:20→19:59)
[2018-07-31] MEDS: OXYCODONE Oral CONC 10 MG/0.5 ML ORAL.SYG SL PRN (08:46)
[2018-07-31] MEDS: 0.9 % Sodium Chloride 1,000 ML IVC SCH ×2 (08:47→17:58)
[2018-07-31] MEDS: Fluconazole 400 MG/200 ML 400 MG/200 ML BAG IVPB SCH (08:47)
[2018-07-31] MEDS: Pantoprazole 40 MG VIAL IVP SCH (08:48)
[2018-07-31] MEDS ORDERED: Aminoglycoside Consult 1 EACH MC ONE (09:58)
--- NOTE | 2018-07-31 11:55 | General Surgery Progress Note ---
<Ayanna Gupta - Last Filed: 07/31/18 11:53> Date of Encounter: 07/31/18 Time of Encounter: 07:30 - Assessment and Plan (1) Perforation of sigmoid colon due to diverticulitis Current Visit: Yes Status: Acute CT showed acute perforated diverticulitis with small areas of free air Patient is feeling better. Continue with conservative management including: IV antibiotics- Zosyn and Diflucan Clear liquids IV fluids Serial abdominal exams Supportive care and pain control Continue pigtail drain placed per IR 07/29/[address] TID with assistance IS every 1 hour while awake PPI therapy daily Repeat am labs- CBC, BMP (2) Leukocytosis Current Visit: Yes Status: Acute Downtrending Continue Pigtail drainage Fluid culture shows Klebsiella, E.coli, and gram positive neha. Sensitive to zosyn. Continue IV antibiotics Repeat am labs Qualifiers: Leukocytosis type: unspecified Qualified Code(s): D72.829 - Elevated white blood cell count, unspecified Subjective Narrative: Patient seen and examined. No acute events overnight. Patient is sleeping comfortably in bed. Patient states he feels better. States RLQ abdominal pain is still there but is improved. Tolerating clear liquid diet. Denies nausea/vomiting, fever. Passing flatus. Reports liquid bowel movements twice a day, no blood. Denies any other complaints. Objective Vital Signs - Last 8 Hours Temp Pulse Resp BP Pulse Ox 07/31/18 07:37 98.2 F 79 18 150/98 96 07/31/18 04:03 98.0 F 82 16 133/89 96 Intake and Output 07/30/18 07/31/18 07/31/18 23:59 07:59 15:59 Intake Total 200 / 200 1700 / 1700 Output Total 650 / 650 670 / 670 Balance -450 / -450 1030 / 1030 Intake: IV Fluids 200 / 200 1700 / 1700 0.9 % Sodium Chloride 1,000 ML 1000 / 1000 @ 130 mls/hr IVC .Q7H42M [facility] Rx #:[id number] Ofirmev 1,000 mg/100 ml 1,000 100 / 100 100 / 100 mg In 100 ml @ 400 mls/hr IVPB Q6HR [facility] Rx#:[id number] Zosyn 3.375 GM In 0.9 % Sodium 100 / 100 100 / 100 Chloride (Mini-Bag +) 100 ML @ 25 mls/hr IVPB Q8H [facility] Rx#: [id number] Vancocin 2,000 MG In 0.9 % 500 / 500 Sodium Chloride 500 ML @ 250 mls/hr IVPB Q12H [facility] Rx#: [id number] Oral 0 / 0 0 / 0 Output: Urine 650 / 650 650 / 650 Wound Drainage Right Lower Abdomen Other: Weight 149.6 kg Patient Weight 07/31/18 23:59 Weight 149.6 kg - Additional Exam VITAL SIGNS: Reviewed. See [facility] GENERAL: In no apparent distress. HEENT: Normocephalic, atraumatic, pupils are equal and reactive, extraocular motions intact, oral mucosa pink and moist. White plaques on tongue, possibly thrush. CHEST/RESPIRATORY: The thorax is free from signs of trauma. Lung sounds: clear to auscultation, normal respiratory effort CARDIAC: Regular rate and rhythm. Normal S1 and S2, without murmurs, gallops, or rubs. VASCULAR: No edema. ABDOMEN: Soft. Obese. Diffuse tender to palpation, most on infraumbilical dwaine on. Normal bowel sounds. WOUNDS/DRAINS: LETICIA drain site is WNL. There is brown fluid in bulb, possibly feculent. MUSCULOSKELETAL: Good range of motion of all major joints. Extremities without clubbing or cyanosis. NEUROLOGIC EXAM: Alert and oriented x 3. Speech normal. Follows commands. PSYCHIATRIC: Mood normal. SKIN: No rash or lesions. - Labs 07/31/18 01:42 07/31/18 01:42 Diabetes panel 07/31/18 Range/Units 01:42 Sodium 139 (136-145) mEq/L Potassium 3.3 L (3.5-5.1) mEq/L Chloride 103 (98-107) mEq/L Carbon Dioxide 26 (23-29) mEq/L BUN 10 (6-20) mg/dL Creatinine 0.81 (0.70-1.30) mg/dL Glucose 99 (70-105) mg/dL Calcium 8.5 L (8.6-10.3) mg/dL Calcium panel 07/31/18 07/31/18 Range/Units 01:42 01:42 Calcium 8.5 L (8.6-10.3) mg/dL Phosphorus 2.9 (2.7-4.5) mg/dL Pituitary panel 07/31/18 Range/Units 01:42 Sodium 139 (136-145) mEq/L Potassium 3.3 L (3.5-5.1) mEq/L Chloride 103 (98-107) mEq/L Carbon Dioxide 26 (23-29) mEq/L BUN 10 (6-20) mg/dL Creatinine 0.81 (0.70-1.30) mg/dL Glucose 99 (70-105) mg/dL Calcium 8.5 L (8.6-10.3) mg/dL Adrenal panel 07/31/18 Range/Units 01:42 Sodium 139 (136-145) mEq/L Potassium 3.3 L (3.5-5.1) mEq/L Chloride 103 (98-107) mEq/L Carbon Dioxide 26 (23-29) mEq/L BUN 10 (6-20) mg/dL Creatinine 0.81 (0.70-1.30) mg/dL Glucose 99 (70-105) mg/dL Calcium 8.5 L (8.6-10.3) mg/dL Consult Discharge Plan - Plan Referrals: Demi Rogers, [employer] [Primary Care Provider] - <Antoine Raya - Last Filed: 07/31/18 18:15> Date of Encounter: 07/31/18 Objective Vital Signs - Last 8 Hours Temp Pulse Resp BP Pulse Ox 07/31/18 17:16 99.6 F 114 20 146/80 94 07/31/18 14:53 99.1 F 117 18 117/65 95 07/31/18 12:55 101.2 F H 133 190/105 95 Intake and Output 07/31/18 07/31/18 07/31/18 07:59 15:59 23:59 Intake Total 1800 / 1800 900 / 900 Output Total 670 / 670 1225 / 1225 Balance 1130 / 1130 -325 / -325 Intake: IV Fluids 1800 / 1800 900 / 900 0.9 % Sodium Chloride 1,000 ML 1000 / 1000 @ 130 mls/hr IVC .Q7H42M [facility] Rx #:[id number] Ofirmev 1,000 mg/100 ml 1,000 200 / 200 100 / 100 mg In 100 ml @ 400 mls/hr IVPB Q6HR [facility] Rx#:[id number] Diflucan Premix 400 MG/200 ML 200 / 200 400 mg In 200 ml @ 200 mls/hr IVPB DAILY [facility] Rx#:[id number] Zosyn 3.375 GM In 0.9 % Sodium 100 / 100 100 / 100 Chloride (Mini-Bag +) 100 ML @ 25 mls/hr IVPB Q8H [facility] Rx#: [id number] Vancocin 2,000 MG In 0.9 % 500 / 500 500 / 500 Sodium Chloride 500 ML @ 250 mls/hr IVPB Q12H [facility] Rx#: [id number] Oral 0 / 0 Output: Urine 650 / 650 1200 / 1200 Wound Drainage Right Lower Abdomen Other: Stool Size Moderate Stool Consistency loose # Bowel Movements 1 Weight 149.6 kg Blood Glucose* 94 Patient Weight 07/31/18 23:59 Weight 149.6 kg - Labs 07/31/18 01:42 07/31/18 01:42 Diabetes panel 07/31/18 Range/Units 01:42 Sodium 139 (136-145) mEq/L Potassium 3.3 L (3.5-5.1) mEq/L Chloride 103 (98-107) mEq/L Carbon Dioxide 26 (23-29) mEq/L BUN 10 (6-20) mg/dL Creatinine 0.81 (0.70-1.30) mg/dL Glucose 99 (70-105) mg/dL Calcium 8.5 L (8.6-10.3) mg/dL Calcium panel 07/31/18 07/31/18 Range/Units 01:42 01:42 Calcium 8.5 L (8.6-10.3) mg/dL Phosphorus 2.9 (2.7-4.5) mg/dL Pituitary panel 07/31/18 Range/Units 01:42 Sodium 139 (136-145) mEq/L Potassium 3.3 L (3.5-5.1) mEq/L Chloride 103 (98-107) mEq/L Carbon Dioxide 26 (23-29) mEq/L BUN 10 (6-20) mg/dL Creatinine 0.81 (0.70-1.30) mg/dL Glucose 99 (70-105) mg/dL Calcium 8.5 L (8.6-10.3) mg/dL Adrenal panel 07/31/18 Range/Units 01:42 Sodium 139 (136-145) mEq/L Potassium 3.3 L (3.5-5.1) mEq/L Chloride 103 (98-107) mEq/L Carbon Dioxide 26 (23-29) mEq/L BUN 10 (6-20) mg/dL Creatinine 0.81 (0.70-1.30) mg/dL Glucose 99 (70-105) mg/dL Calcium 8.5 L (8.6-10.3) mg/dL - Attending Attestation I examined this patient and my medical decision-making was reviewed with the Resident Physician. I agree with the documented findings, disposition and treatment plan as described except to the extent set forth below. I reviewed the above assessment and evaluation agree with the above plan. Patient has mild elevation of temperature however white count has decreased. He was doing well until after a bowel movement this morning where he had some increasing pain. Hemodynamically stable at this time. Will closely monitor. Follow WBC. Noted hypokalemia which has been replaced.
[2018-07-31] MEDS: cloNIDine HCl 0.1 MG TABLET PO PRN (12:22)
[2018-07-31] MEDS: Ketorolac 30 MG/ML VIAL IVP SCH ×3 (12:26→23:58)
[2018-08-01 01:26] LABS: Hematocrit 38.2 % (37.5-50.1); Hemoglobin 12.3 g/dL (12.9-16.9); Mean Corpuscular HGB Conc 32.2 g/dL (31.6-35.5); Mean Corpuscular Hemoglobin 26.6 pg (28.0-33.3); Mean Corpuscular Volume 82.5 fL (83.0-100.0); Platelet Count 280 K/mcL (140-400); Red Blood Count 4.63 M/mcL (4.19-5.50); Red Cell Distribution Width 15.1 % (11.5-14.5)
[2018-08-01 01:42] LABS: BUN/Creatinine Ratio 15 (6-26); Blood Urea Nitrogen 14 mg/dL (6-20); Calcium 8.2 mg/dL (8.6-10.3); Carbon Dioxide 24 mEq/L (23-29); Chloride 102 mEq/L (98-107); Glucose 108 mg/dL (70-105); Osmolality,Calculated 289 (280-300); Potassium 3.2 mEq/L (3.5-5.1); Sodium 139 mEq/L (136-145); eGFR For Non-African Americans > 60 (> 60)
[2018-08-01 01:46] LABS: Lymphocytes # 0.4 K/mcL (0.6-4.6); Monocytes # 0.4 K/mcL (0.0-1.3); Neutrophils # 17.3 K/mcL (1.6-8.9); Platelet Estimate Normal (Normal)
[2018-08-01] MEDS: Piperacillin/Tazobactam 3.375 GM in 0.9 % Sodium Chloride Mini Bag 100 ML IVPB SCH ×3 (03:47→21:02)
[2018-08-01] MEDS: 0.9 % Sodium Chloride 1,000 ML IVC SCH ×2 (03:47→13:29)
[2018-08-01] MEDS: Ketorolac 30 MG/ML VIAL IVP SCH ×3 (06:05→18:48)
[2018-08-01] MEDS: Acetaminophen IV 1,000 MG/100 ML INFUS..BTL IVPB SCH ×3 (06:05→18:48)
[2018-08-01] MEDS: *HR* Heparin 5,000 UNIT/ML VIAL SQ SCH ×3 (06:07→21:00)
[2018-08-01] MEDS ORDERED: Isovue-370 500 ML BOTTLE IVP ONE (06:09)
[2018-08-01] MEDS ORDERED: Isovue-370 500 ML BOTTLE PO ONE (06:41)
[2018-08-01] MEDS: Fluconazole 400 MG/200 ML 400 MG/200 ML BAG IVPB SCH (09:00)
[2018-08-01] MEDS: Pantoprazole 40 MG VIAL IVP SCH (09:00)
--- NOTE | 2018-08-01 17:32 | General Surgery Progress Note ---
<Ayanna Gupta - Last Filed: 08/01/18 17:31> Date of Encounter: 08/01/18 Time of Encounter: 08:20 - Assessment and Plan (1) Perforation of sigmoid colon due to diverticulitis Current Visit: Yes Status: Acute CT showed acute perforated diverticulitis with small areas of free air Patient is feeling much better. Only having little abdominal pain. Repeat CT shows near complete resolution of fluid collection. There is small persistent leak at site of sigmoid perforation Body fluid culture grew VRE. Resistant to vancomycin. Only sensitive to linezolid. Stop vanc. Start linezolid. Continue with conservative management including: IV antibiotics- linezolid, Zosyn and Diflucan Clear liquids IV fluids Serial abdominal exams Supportive care and pain control Continue pigtail drain placed per IR 07/29/[address] TID with assistance IS every 1 hour while awake PPI therapy daily Repeat am labs- CBC, BMP (2) Leukocytosis Current Visit: Yes Status: Acute Uptrended today from 12.7 to 18.0. Likely secondary to VRE, resistant to vanc. Continue Pigtail drainage Fluid culture shows Klebsiella, E.coli, and VRE. Sensitive to zosyn and linezol id. Continue IV antibiotics Repeat am labs Qualifiers: Leukocytosis type: unspecified Qualified Code(s): D72.829 - Elevated white blood cell count, unspecified Subjective Narrative: Patient seen and examined. No acute events overnight. Patient is sitting in chair. Patient states he feels better. States abdominal pain is much better. Only have a little pain in lower abdomen. Tolerated clear liquid diet. Denies nausea/vomiting, fever. Passing flatus and bowel movements. States he feels hot, he gets hot easily. Denies any other complaints. Objective Vital Signs - Last 8 Hours Temp Pulse Resp BP Pulse Ox 08/01/18 10:06 98.4 F 86 18 144/89 94 Intake and Output 08/01/18 08/01/18 08/01/18 07:59 15:59 23:59 Intake Total 1000 / 1000 Output Total Balance 980 / 980 Intake: IV Fluids 1000 / 1000 0.9 % Sodium Chloride 1,000 ML 1000 / 1000 @ 130 mls/hr IVC .Q7H42M [facility] Rx #:[id number] Ofirmev 1,000 mg/100 ml 1,000 mg In 100 ml @ 400 mls/hr IVPB Q6HR [facility] Rx#:[id number] Zosyn 3.375 GM In 0.9 % Sodium Chloride (Mini-Bag +) 100 ML @ 25 mls/hr IVPB Q8H [facility] Rx#: [id number] Vancocin 2,000 MG In 0.9 % Sodium Chloride 500 ML @ 250 mls/hr IVPB Q12H [facility] Rx#: [id number] Oral 0 / 0 Output: Urine 0 / 0 Wound Drainage Right Lower Abdomen Other: Meal Breakfast NPO Percent of Meal Consumed 0% Stool Size Small Stool Consistency loose Stool Color Brown # Voids 1 # Bowel Movements 0 Blood Glucose* 102 - Additional Exam VITAL SIGNS: Reviewed. See [facility] GENERAL: In no apparent distress. Diaphoretic. HEENT: Normocephalic, atraumatic, pupils are equal and reactive, extraocular motions intact, oral mucosa pink and moist. CHEST/RESPIRATORY: The thorax is free from signs of trauma. Lung sounds: clear to auscultation, normal respiratory effort CARDIAC: Regular rate and rhythm. Normal S1 and S2, without murmurs, gallops, or rubs. VASCULAR: No edema. ABDOMEN: Soft. Obese. Nontender. Normal bowel sounds. WOUNDS/DRAINS: LETICIA drain site is WNL. There is brown fluid in bulb, appears bilious. MUSCULOSKELETAL: Good range of motion of all major joints. Extremities without clubbing or cyanosis. NEUROLOGIC EXAM: Alert and oriented x 3. Speech normal. Follows commands. PSYCHIATRIC: Mood normal. SKIN: No rash or lesions. - Labs 08/01/18 00:45 08/01/18 00:45 Diabetes panel 08/01/18 Range/Units 00:45 Sodium 139 (136-145) mEq/L Potassium 3.2 L (3.5-5.1) mEq/L Chloride 102 (98-107) mEq/L Carbon Dioxide 24 (23-29) mEq/L BUN 14 (6-20) mg/dL Creatinine 0.92 (0.70-1.30) mg/dL Glucose 108 H (70-105) mg/dL Calcium 8.2 L (8.6-10.3) mg/dL Calcium panel 08/01/18 Range/Units 00:45 Calcium 8.2 L (8.6-10.3) mg/dL Pituitary panel 08/01/18 Range/Units 00:45 Sodium 139 (136-145) mEq/L Potassium 3.2 L (3.5-5.1) mEq/L Chloride 102 (98-107) mEq/L Carbon Dioxide 24 (23-29) mEq/L BUN 14 (6-20) mg/dL Creatinine 0.92 (0.70-1.30) mg/dL Glucose 108 H (70-105) mg/dL Calcium 8.2 L (8.6-10.3) mg/dL Adrenal panel 08/01/18 Range/Units 00:45 Sodium 139 (136-145) mEq/L Potassium 3.2 L (3.5-5.1) mEq/L Chloride 102 (98-107) mEq/L Carbon Dioxide 24 (23-29) mEq/L BUN 14 (6-20) mg/dL Creatinine 0.92 (0.70-1.30) mg/dL Glucose 108 H (70-105) mg/dL Calcium 8.2 L (8.6-10.3) mg/dL Consult Discharge Plan - Plan Referrals: Demi Rogers, PACKING INSPECTOR [Primary Care Provider] - <Antoine Raya - Last Filed: 08/02/18 06:44> Date of Encounter: 08/01/18 Objective Vital Signs - Last 8 Hours Temp Pulse Resp BP Pulse Ox 08/02/18 04:28 98.6 F 89 18 159/90 95 08/01/18 23:58 98.7 F 88 18 152/83 94 Intake and Output 08/01/18 08/01/18 08/02/18 15:59 23:59 07:59 Intake Total 1100 / 1100 1700 / 1700 300 / 300 Output Total 20 460 / 460 320 / 320 Balance 1080 / 1080 1240 / 1240 -20 / -20 Intake: IV Fluids 1100 / 1100 1700 / 1700 300 / 300 0.9 % Sodium Chloride 1,000 ML 1000 / 1000 1000 / 1000 @ 130 mls/hr IVC .Q7H42M [facility] Rx #:[id number] Ofirmev 1,000 mg/100 ml 1,000 100 / 100 100 / 100 200 / 200 mg In 100 ml @ 400 mls/hr IVPB Q6HR [facility] Rx#:[id number] Diflucan Premix 400 MG/200 ML 200 / 200 400 mg In 200 ml @ 200 mls/hr IVPB DAILY [facility] Rx#:[id number] Zyvox Premix 600mg/300mL 600 mg 300 / 300 In 300 ml @ 150 mls/hr IVPB Q12HR [facility] Rx#:[id number] Zosyn 3.375 GM In 0.9 % Sodium 100 / 100 100 / 100 Chloride (Mini-Bag +) 100 ML @ 25 mls/hr IVPB Q8H [facility] Rx#: [id number] Oral 0 / 0 0 / 0 0 / 0 Output: Urine 0 / 0 450 / 450 300 / 300 Wound Drainage Right Lower Abdomen Other: Meal Breakfast NPO Percent of Meal Consumed 0% Stool Size Small Stool Consistency loose Stool Color Brown # Voids 1 # Bowel Movements 0 1 Weight 160.1 kg Blood Glucose* 102 99 Patient Weight 08/02/18 23:59 Weight 160.1 kg - Labs 08/02/18 05:17 08/02/18 05:17 Diabetes panel 08/02/18 Range/Units 05:17 Sodium 140 (136-145) mEq/L Potassium 2.9 L (3.5-5.1) mEq/L Chloride 104 (98-107) mEq/L Carbon Dioxide 25 (23-29) mEq/L BUN 16 (6-20) mg/dL Creatinine 0.88 (0.70-1.30) mg/dL Glucose 112 H (70-105) mg/dL Calcium 8.5 L (8.6-10.3) mg/dL Calcium panel 08/02/18 Range/Units 05:17 Calcium 8.5 L (8.6-10.3) mg/dL Pituitary panel 08/02/18 Range/Units 05:17 Sodium 140 (136-145) mEq/L Potassium 2.9 L (3.5-5.1) mEq/L Chloride 104 (98-107) mEq/L Carbon Dioxide 25 (23-29) mEq/L BUN 16 (6-20) mg/dL Creatinine 0.88 (0.70-1.30) mg/dL Glucose 112 H (70-105) mg/dL Calcium 8.5 L (8.6-10.3) mg/dL Adrenal panel 08/02/18 Range/Units 05:17 Sodium 140 (136-145) mEq/L Potassium 2.9 L (3.5-5.1) mEq/L Chloride 104 (98-107) mEq/L Carbon Dioxide 25 (23-29) mEq/L BUN 16 (6-20) mg/dL Creatinine 0.88 (0.70-1.30) mg/dL Glucose 112 H (70-105) mg/dL Calcium 8.5 L (8.6-10.3) mg/dL - Attending Attestation I examined this patient and my medical decision-making was reviewed with the Resident Physician. I agree with the documented findings, disposition and treatment plan as described except to the extent set forth below. Review the assessment and evaluation with the resident and agree with the above plan. Noted white count 18,000. Ordered CT scan of the abdomen and pelvis for today which demonstrated near resolution of the fluid collection however there was concern about a possible sign of contrast extravasation. This appeared to be very minimal. Patient states that he feels significantly better. Decreased lower abdominal pain on examination. I think it would be appropriate to go ahead and continue to observe him and allow him have some clears tonight but keep him nothing by mouth after midnight just in case. Recheck CBC as well. Dr. Louis to return tomorrow.
[2018-08-02] MEDS: Acetaminophen IV 1,000 MG/100 ML INFUS..BTL IVPB SCH ×4 (00:07→21:38)
[2018-08-02] MEDS: Ketorolac 30 MG/ML VIAL IVP SCH ×4 (00:07→22:21)
[2018-08-02] MEDS: 0.9 % Sodium Chloride 1,000 ML IVC SCH ×3 (00:14→09:29)
[2018-08-02] MEDS: Piperacillin/Tazobactam 3.375 GM in 0.9 % Sodium Chloride Mini Bag 100 ML IVPB SCH ×2 (04:03→15:53)
[2018-08-02 05:40] LABS: Basophils % 0.2 %; Eosinophils # 0.4 K/mcL (0.0-0.6); Eosinophils % 2.1 %; Hemoglobin 11.3 g/dL (12.9-16.9); Immature Granulocytes % 2.2 % (0-4); Lymphocytes # 0.9 K/mcL (0.6-4.6); Lymphocytes % 5.2 %; Mean Corpuscular HGB Conc 32.3 g/dL (31.6-35.5); Mean Corpuscular Volume 83.5 fL (83.0-100.0); Mean Platelet Volume 9.8 fL (9.4-12.4); Monocytes # 0.8 K/mcL (0.0-1.3); Monocytes % 4.3 %; Neutrophils # 15.5 K/mcL (1.6-8.9); Platelet Count 289 K/mcL (140-400); Red Blood Count 4.19 M/mcL (4.19-5.50); Red Cell Distribution Width 15.3 % (11.5-14.5)
[2018-08-02] MEDS: *HR* Heparin 5,000 UNIT/ML VIAL SQ SCH ×3 (05:45→22:20)
[2018-08-02 06:08] LABS: BUN/Creatinine Ratio 18 (6-26); Blood Urea Nitrogen 16 mg/dL (6-20); Calcium 8.5 mg/dL (8.6-10.3); Carbon Dioxide 25 mEq/L (23-29); Chloride 104 mEq/L (98-107); Glucose 112 mg/dL (70-105); Osmolality,Calculated 292 (280-300); Potassium 2.9 mEq/L (3.5-5.1); Sodium 140 mEq/L (136-145); eGFR For Non-African Americans > 60 (> 60)
[2018-08-02] MEDS ORDERED: Potassium Chloride 40 MEQ, Lidocaine 1% 2 ML in D5% in Water 500 ML IVPB ONE (08:09)
[2018-08-02] MEDS ORDERED: 0.45 % Sodium Chloride w/KCl 20 MEQ/1,000 ML MLS IVC SCH ×2 (08:15→20:39)
[2018-08-02] MEDS: Fluconazole 400 MG/200 ML 400 MG/200 ML BAG IVPB SCH (09:47)
[2018-08-02] MEDS: Pantoprazole 40 MG VIAL IVP SCH (09:48)
[2018-08-02 09:49] LABS: Phosphorous 3.1 mg/dL (2.7-4.5)
[2018-08-02] MEDS ORDERED: *HR* LORazepam 2 MG/ML VIAL IVP PRN (11:13)
--- NOTE | 2018-08-02 11:30 | General Surgery Progress Note ---
<Griselda Wright - Last Filed: 08/02/18 14:19> Date of Encounter: 08/02/18 Time of Encounter: 11:26 - Assessment and Plan (1) Perforation of sigmoid colon due to diverticulitis Current Visit: Yes Status: Acute s/p IR drain 07/29/[address] 08/01/18 noted near complete resolution RLQ fluid collection., but small persistent leak evidenced by extraluminal contrast noted. Noted cultures positive for VRE. Change to Linezolid on 08/01/2018; continues diflucan. WBC remains elevated Plan: Continue supportive care and discomfort management NPO at midnight for possible surgical intervention PICC TPN Serial abd exams repeat am labs continue G.I. and DVT prophylaxis (2) Shortness of breath Current Visit: Yes Status: Acute acute process vs fluid overload Significant weight discrepancy per charting; ordered standing scale weight and reviewed with bedside rn Chest x-ray with by basilar infiltrates noted atelectasis versus pneumonia add scheduled duonebs and aggressive pulmonary toileting pulmonary consult for acappella (3) Wheezing Current Visit: Yes Status: Acute acute process vs fluid overload. Significant weight discrepancy per charting; ordered standing scale weight and reviewed with bedside rn Will obtain chest x-ray to rule out pathological process further recommendations pending (4) HTN (hypertension) Current Visit: Yes Status: Chronic Continue home meds Qualifiers: Hypertension type: essential hypertension Qualified Code(s): I10 - Essential (primary) hypertension (5) Obesity Current Visit: Yes Status: Chronic Daily standing scale weights only Standing scale weight 08/02/18 158.8kg weight loss encouraged once acute episode is complete Qualifiers: Obesity type: due to excess calories Obesity classification: adult class 3 (BMI >= 40) Serious obesity comorbidity presence: with serious comorbidity Body mass index: BMI 45.0-49.9 Qualified Code(s): E66.01 - Morbid (severe) obesity due to excess calories; Z68.42 - Body mass index (BMI) 45.0-49.9, adult (6) Anxiety Current Visit: Yes Status: Acute IV lorazepam PRN Subjective Patient reports: feels better, still having pain, pain is less, voiding w/o difficulty, flatus, bowel movement, afebrile, other (anxious) Objective Vital Signs - Last 8 Hours Temp Pulse Resp BP Pulse Ox 08/02/18 10:26 98.8 F 80 16 195/107 96 08/02/18 07:55 95 08/02/18 06:58 98.5 F 66 16 164/97 95 08/02/18 04:28 98.6 F 89 18 159/90 95 Intake and Output 08/01/18 08/02/18 08/02/18 23:59 07:59 15:59 Intake Total 1700 / 1700 300 / 300 0 / 0 Output Total 460 / 460 320 / 320 0 / 0 Balance 1240 / 1240 -20 / -20 0 / 0 Intake: IV Fluids 1700 / 1700 300 / 300 0.9 % Sodium Chloride 1,000 ML 1000 / 1000 @ 130 mls/hr IVC .[id number] [facility] Rx #:[id number] Ofirmev 1,000 mg/100 ml 1,000 100 / 100 200 / 200 mg In 100 ml @ 400 mls/hr IVPB Q6HR [facility] Rx#:[id number] Diflucan Premix 400 MG/200 ML 200 / 200 400 mg In 200 ml @ 200 mls/hr IVPB DAILY [facility] Rx#:[id number] Zyvox Premix 600mg/300mL 600 mg 300 / 300 In 300 ml @ 150 mls/hr IVPB Q12HR [facility] Rx#:[id number] Zosyn 3.375 GM In 0.9 % Sodium 100 / 100 100 / 100 Chloride (Mini-Bag +) 100 ML @ 25 mls/hr IVPB Q8H [facility] Rx#: [id number] Oral 0 / 0 0 / 0 0 / 0 Output: Urine 450 / 450 300 / 300 0 / 0 Wound Drainage Right Lower Abdomen Other: Meal NPO Percent of Meal Consumed 0% Stool Size Moderate Stool Consistency loose Stool Characteristics Normal for Patient Stool Color Brown # Bowel Movements 1 1 Weight 160.1 kg Blood Glucose* 99 92 Patient Weight 08/02/18 23:59 Weight 160.1 kg - General physical appearance no distress, moderate pain, obese - Eyes normal ocular movement - ENT normal nares, normal mucosa, atraumatic, normocephalic - Neck Neck exam: trachea midline - Respiratory other (Decreased. BL insp/exp wheezing; SOB at rest) - Cardiovascular Cardiovascular exam: Present: RRR - Abdomen Abdomen: Present: bowel sounds present, soft, tender. Absent: guarding Hernia: none - Integumentary no rash - Neurologic normal coordination, normal sensation - Musculoskeletal normal posture - Psychiatric oriented to time, oriented to person, oriented to place, speech is normal, memory intact - Labs 08/02/18 05:17 08/02/18 05:17 Diabetes panel 08/02/18 08/02/18 Range/Units 05:17 08:39 Sodium 140 (136-145) mEq/L Potassium 2.9 L (3.5-5.1) mEq/L Chloride 104 (98-107) mEq/L Carbon Dioxide 25 (23-29) mEq/L BUN 16 (6-20) mg/dL Creatinine 0.88 (0.70-1.30) mg/dL Glucose 112 H (70-105) mg/dL Calcium 8.5 L (8.6-10.3) mg/dL Triglycerides 202 H (< 150) mg/dL Calcium panel 08/02/18 08/02/18 Range/Units 05:17 08:39 Calcium 8.5 L (8.6-10.3) mg/dL Phosphorus 3.1 (2.7-4.5) mg/dL Pituitary panel 08/02/18 Range/Units 05:17 Sodium 140 (136-145) mEq/L Potassium 2.9 L (3.5-5.1) mEq/L Chloride 104 (98-107) mEq/L Carbon Dioxide 25 (23-29) mEq/L BUN 16 (6-20) mg/dL Creatinine 0.88 (0.70-1.30) mg/dL Glucose 112 H (70-105) mg/dL Calcium 8.5 L (8.6-10.3) mg/dL Adrenal panel 08/02/18 Range/Units 05:17 Sodium 140 (136-145) mEq/L Potassium 2.9 L (3.5-5.1) mEq/L Chloride 104 (98-107) mEq/L Carbon Dioxide 25 (23-29) mEq/L BUN 16 (6-20) mg/dL Creatinine 0.88 (0.70-1.30) mg/dL Glucose 112 H (70-105) mg/dL Calcium 8.5 L (8.6-10.3) mg/dL Consult Discharge Plan - Plan Referrals: Demi Rogers, RETAIL PRESENTATION SPECIALIST [Primary Care Provider] - <Tamiko Louis Wendy - Last Filed: 08/05/18 16:29> Date of Encounter: 08/02/18 - Assessment and Plan (1) Perforation of sigmoid colon due to diverticulitis Current Visit: Yes Status: Acute discussed with patient that I am concerned this process is not resolving, his inflammation appears as severe on CT yesterday as it did on CT from day of admission. His drain has bilious output, his wbc remains elevated although vitals are primarily wnl. discussed continued conservative management in hopes of forming a controlled colocutaneous fistula versus proceeding to OR for Silvia's. continue npo/ice chips prn pain control continue abx, cultures pending trend labs overall patient feels the best he has this admission and states has no abdominal pain currently ambulate gi/dvt prophylaxis (2) HTN (hypertension) Current Visit: Yes Status: Chronic continue home meds prn hydralazine Qualifiers: Hypertension type: essential hypertension Qualified Code(s): I10 - Essential (primary) hypertension (3) Obesity Current Visit: Yes Status: Chronic Qualifiers: Obesity type: due to excess calories Obesity classification: adult class 3 (BMI >= 40) Serious obesity comorbidity presence: with serious comorbidity Body mass index: BMI 45.0-49.9 Qualified Code(s): E66.01 - Morbid (severe) obesity due to excess calories; Z68.42 - Body mass index (BMI) 45.0-49.9, adult (4) Leukocytosis Current Visit: Yes Status: Acute continues to be elevated trend continue abx awaiting culture results from IR drain placement Qualifiers: Leukocytosis type: unspecified Qualified Code(s): D72.829 - Elevated white blood cell count, unspecified Subjective Patient reports: feels better, pain is less (denies any pain), voiding w/o difficulty, flatus, bowel movement, afebrile Objective Vital Signs - Last 8 Hours Temp Pulse Resp BP Pulse Ox 08/05/18 15:36 153/94 08/05/18 14:53 98.2 F 97 18 95 08/05/18 11:48 98.0 F 86 18 155/95 91 Intake and Output 08/05/18 08/05/18 08/05/18 07:59 15:59 23:59 Intake Total 1250 / 1250 3650 / 3650 Output Total 1620 / 1620 2168 / 2168 Balance -370 / -370 1482 / 1482 Intake: IV Fluids 450 / 450 1920 / 1920 0.9 % Sodium Chloride 1,000 ML 1000 / 1000 @ 50 mls/hr IVC .Q20H [facility] Rx#: [id number] Rocephin 2,000 MG In Water for 20 / 20 inj. (sterile) 20 ML @ 600 mls/ hr IVP Q24H [facility] Rx#:[id number] Ofirmev 1,000 mg/100 ml 1,000 100 / 100 200 / 200 mg In 100 ml @ 400 mls/hr IVPB Q6H [facility] Rx#:[id number] Cubicin 650 MG In 0.9 % Sodium 100 / 100 Chloride 100 ML @ 200 mls/hr IVPB Q24H [facility] Rx#:[id number] Intralipid 20% 250 ML @ 21 mls/ 250 / 250 hr IVPB DAILY@1700 [facility] Rx#: [id number] Diflucan Premix 400 MG/200 ML 200 / 200 400 mg In 200 ml @ 200 mls/hr IVPB DAILY [facility] Rx#:[id number] Zyvox Premix 600mg/300mL 600 mg 300 / 300 In 300 ml @ 150 mls/hr IVPB Q12HR [facility] Rx#:[id number] Zosyn 3.375 GM In 0.9 % Sodium 100 / 100 100 / 100 Chloride (Mini-Bag +) 100 ML @ 25 mls/hr IVPB Q8H [facility] Rx#: [id number] Oral 800 / 800 1730 / 1730 Output: Catheter 1600 / 1600 2150 / 2150 Urethral (Aguilar) 1150 / 1150 Wound Drainage 18 18 Left Abdomen 18 18 Other: Blood Glucose* 155 107 - General physical appearance well developed, well nourished, no distress, obese - Eyes PERRL, normal ocular movement - ENT normal mucosa, normocephalic - Neck Neck exam: trachea midline - Respiratory normal expansion, clear to auscultation - Cardiovascular Cardiovascular exam: Present: RRR - Abdomen Abdomen: Present: bowel sounds present, soft, non tender. Absent: distended, guarding, rebound - Integumentary no rash - Neurologic normal sensation - Musculoskeletal normal posture - Psychiatric oriented to time, oriented to person, oriented to place, speech is normal, memory intact - Labs 08/05/18 03:50 08/05/18 03:50 Diabetes panel 08/05/18 08/05/18 Range/Units 03:50 10:49 Sodium 138 (136-145) mEq/L Potassium 3.8 (3.5-5.1) mEq/L Chloride 103 (98-107) mEq/L Carbon Dioxide 28 (23-29) mEq/L BUN 19 (6-20) mg/dL Creatinine 0.88 (0.70-1.30) mg/dL Glucose 140 H (70-105) mg/dL Calcium 8.4 L (8.6-10.3) mg/dL AST 45 H (13-39) Units/L ALT 37 (7-52) Units/L Alkaline Phosphatase 54 (34-104) Units/L Albumin 2.8 L (3.5-5.7) g/dL Calcium panel 08/05/18 08/05/18 Range/Units 03:50 10:49 Calcium 8.4 L (8.6-10.3) mg/dL Phosphorus 3.7 (2.7-4.5) mg/dL Albumin 2.8 L (3.5-5.7) g/dL Pituitary panel 08/05/18 Range/Units 03:50 Sodium 138 (136-145) mEq/L Potassium 3.8 (3.5-5.1) mEq/L Chloride 103 (98-107) mEq/L Carbon Dioxide 28 (23-29) mEq/L BUN 19 (6-20) mg/dL Creatinine 0.88 (0.70-1.30) mg/dL Glucose 140 H (70-105) mg/dL Calcium 8.4 L (8.6-10.3) mg/dL Adrenal panel 08/05/18 08/05/18 Range/Units 03:50 10:49 Sodium 138 (136-145) mEq/L Potassium 3.8 (3.5-5.1) mEq/L Chloride 103 (98-107) mEq/L Carbon Dioxide 28 (23-29) mEq/L BUN 19 (6-20) mg/dL Creatinine 0.88 (0.70-1.30) mg/dL Glucose 140 H (70-105) mg/dL Calcium 8.4 L (8.6-10.3) mg/dL Total Bilirubin 0.3 (0.3-1.0) mg/dL AST 45 H (13-39) Units/L ALT 37 (7-52) Units/L Alkaline Phosphatase 54 (34-104) Units/L Albumin 2.8 L (3.5-5.7) g/dL - Imaging CT scan - abdomen: report reviewed, image reviewed CT scan - pelvis: report reviewed, image reviewed - Attending Attestation I have personally performed a face to face evaluation on this patient. I have reviewed and agree with the care plan. History and Exam by me shows:
[2018-08-02] MEDS ORDERED: D10% in Water 500 ML IVC PRN (12:59)
[2018-08-02] MEDS ORDERED: *HR* LORazepam 2 MG/ML VIAL IM STA (13:18)
[2018-08-02] MEDS ORDERED: Lidocaine -MPF 1% 5 ML AMPUL INFILT ONE (14:53)
[2018-08-02] MEDS: Ipratropium/Albuterol Neb 3 ML IH SCH ×3 (16:29→20:29)
[2018-08-02] MEDS ORDERED: Clinimix E 5%-15% SOLUTION 2,000 ML with MVI, adult with vitamin K 10 ML IVC SCH (17:00)
--- NOTE | 2018-08-02 17:37 | Anesthesia Evaluation PreOp ---
Date of Encounter: 08/02/18 Time of Encounter: 19:50 - Past History Planned Operation: Expl Lap w/ Silvia's Procedure Cardiac History: HTN Pulmonary History: Denies Any Significant HX, Snore, CONCEPCION Dx (Likely but not yet Diagnosed) AUDITING MANAGER History: Denies Any Significant HX Other Medical History: Other (MO/BMI = 46) Anesthesia History: No Prior Anesthetic Complications, Past Anesthesia (ORIF R Tib-Fib, Nasal Fx, T&A, ORIF B-hand Fx) Alcohol Use: none Drug use: none Medications and Allergies Losartan Potassium [Cozaar] 100 mg PO DAILY 01/07/17 [History] Triamterene/HCTZ 37.5/25mg [Dyazide] 1 cap PO DAILY 01/07/17 [History] cloNIDine HCl [CloNIDine HCl] 0.1 mg PO HS PRN MDD >160/90 01/07/17 [History] Meloxicam 15 mg PO DAILY 07/27/18 [History] Allergy/AdvReac Type Severity Reaction Status Date / Time YANA Inhibitors AdvReac THROAT Verified 07/27/18 14:30 ITCH, COUGH codeine AdvReac Vomiting, Verified 07/27/18 14:30 STOMACH PROBLEMS - Meds/Allergy Pre-op Review Medications Reviewed: Yes Allergies Reviewed: Yes Beta Blockers on Current Med List: No Anesthesia Results - Labs 08/02/18 05:17 08/02/18 05:17 Laboratory Results Impressions Needle Aspiration CT 07/29/18 00:00 IMPRESSION: Successful CT guided placement of right lower quadrant abdominal abscess drainage catheter. D/ / Sae Avilez MD / Sae Avilez MD Interpreting Provider: Sae Avilez MD Abdomen/Pelvis CT 08/01/18 09:00 IMPRESSION: Near complete resolution of the previously noted right lower quadrant fluid collection with drain in place. Small persistent leak evidenced by extraluminal oral contrast adjacent to the site of sigmoid perforation. Small right-sided pleural effusion and associated atelectasis. D/ / Guicho Mosley MD / Guicho Mosley MD Interpreting Provider: Guicho Mosley MD Chest X-Ray 08/02/18 11:13 IMPRESSION: Persistent bibasilar infiltrates could represent atelectasis or pneumonia D/ / Edmond Cooley MD / Edmond Cooley MD Interpreting Provider: Edmond Cooley MD - Imaging EKG: image reviewed (116bpm - Sinus tachycardia Electronically Signed On 07-28-2018 11:29:39 EST by Bijal Chavez) Anesthesia Exam Vital Signs Temp Pulse Resp BP Pulse Ox 08/02/18 16:32 16 95 08/02/18 15:04 100.5 F H 97 16 180/106 95 08/02/18 10:26 98.8 F 80 16 195/107 96 08/02/18 07:55 95 08/02/18 06:58 98.5 F 66 16 164/97 95 08/02/18 04:28 98.6 F 89 18 159/90 95 08/01/18 23:58 98.7 F 88 18 152/83 94 08/01/18 19:44 98.6 F 102 18 146/85 96 Intake and Output 08/02/18 08/02/18 08/02/18 07:59 15:59 23:59 Intake Total 300 / 300 100 / 100 Output Total 320 / 320 0 / 0 Balance -20 / -20 100 / 100 Intake: IV Fluids 300 / 300 100 / 100 Ofirmev 1,000 mg/100 ml 1,000 200 / 200 mg In 100 ml @ 400 mls/hr IVPB Q6HR [facility] Rx#:[id number] Zosyn 3.375 GM In 0.9 % Sodium 100 / 100 100 / 100 Chloride (Mini-Bag +) 100 ML @ 25 mls/hr IVPB Q8H [facility] Rx#: [id number] Oral 0 / 0 0 / 0 Output: Urine 300 / 300 0 / 0 Wound Drainage 20 / 20 Right Lower Abdomen 20 / 20 Other: Meal LUNCH NPO Percent of Meal Consumed 0% Stool Size Moderate Stool Consistency loose Stool Characteristics Normal for Patient Stool Color Brown # Bowel Movements 1 Weight 160.1 kg 158.8 kg Blood Glucose* 99 92 99 Patient Weight 08/02/18 23:59 Weight 158.8 kg Height: 6'1" Weight: 350# BMI = 46.2 NPO (# of Hours): MNOc - HEENT Pupil (Motor): Pupils equal, EOMI Mallampati: III Teeth: Normal Oral Opening: Greater than 3 - AUDITING MANAGER LOC: Oriented AUDITING MANAGER Motor: Normal RUE, Normal LUE, Normal RLE, Normal LLE, Normal Face AUDITING MANAGER Sensory: Normal: RUE, LUE, RLE, LLE, Face - Cardiac Rhythm: Regular Murmur: None - Pulmonary Breath Sounds: bilateral Clear Respiratory Effort: Symmetrical Anesthesia Assess/Plan ASA Score: 3 (MO/BMI = 46, HTN) Level of consciousness: Cooperative, Oriented, Tranquil Anesthetic Plan: General Monitoring Plan: Standard Monitors Recovery Plan: PACU Anes Supervising Prov Stmt: PT seen/evaluated, R&B discussed, questions answered and consent obtained. Jenn Samson MD
[2018-08-02] MEDS ORDERED: Ipratropium/Albuterol Neb 3 ML IH PRN (20:43)
[2018-08-02] MEDS: cloNIDine HCl 0.1 MG TABLET PO SCH (21:39)
[2018-08-03] MEDS: Piperacillin/Tazobactam 3.375 GM in 0.9 % Sodium Chloride Mini Bag 100 ML IVPB SCH ×4 (00:01→20:52)
[2018-08-03] MEDS: Acetaminophen IV 1,000 MG/100 ML INFUS..BTL IVPB SCH ×3 (04:03→15:29)
[2018-08-03 04:20] LABS: Basophils # 0.1 K/mcL (0.0-0.2); Basophils % 0.3 %; Eosinophils # 0.5 K/mcL (0.0-0.6); Eosinophils % 2.8 %; Hematocrit 34.7 % (37.5-50.1); Immature Granulocytes % 2.3 % (0-4); Lymphocytes # 1.3 K/mcL (0.6-4.6); Mean Corpuscular HGB Conc 31.7 g/dL (31.6-35.5); Mean Corpuscular Hemoglobin 26.2 pg (28.0-33.3); Mean Corpuscular Volume 82.6 fL (83.0-100.0); Mean Platelet Volume 9.6 fL (9.4-12.4); Monocytes # 1.1 K/mcL (0.0-1.3); Monocytes % 5.8 %; Neutrophils # 15.2 K/mcL (1.6-8.9); Platelet Count 330 K/mcL (140-400); Red Cell Distribution Width 15.3 % (11.5-14.5); Segmented Neutrophils % 81.8 %
[2018-08-03 04:29] LABS: BUN/Creatinine Ratio 14 (6-26); Blood Urea Nitrogen 12 mg/dL (6-20); Calcium 8.4 mg/dL (8.6-10.3); Carbon Dioxide 25 mEq/L (23-29); Chloride 103 mEq/L (98-107); Glucose 121 mg/dL (70-105); Osmolality,Calculated 293 (280-300); Phosphorous 3.4 mg/dL (2.7-4.5); Sodium 141 mEq/L (136-145); eGFR For Non-African Americans > 60 (> 60)
[2018-08-03] MEDS: *HR* Heparin 5,000 UNIT/ML VIAL SQ SCH ×3 (05:10→22:27)
[2018-08-03] MEDS: Ketorolac 30 MG/ML VIAL IVP SCH ×3 (05:10→17:20)
[2018-08-03] MEDS ORDERED: Potassium Chloride 40 MEQ, Lidocaine 1% 2 ML in D5% in Water 500 ML IVPB ONE (07:51)
[2018-08-03] MEDS: Pantoprazole 40 MG VIAL IVP SCH (10:21)
[2018-08-03] MEDS: Fluconazole 400 MG/200 ML 400 MG/200 ML BAG IVPB SCH (10:22)
[2018-08-03] MEDS ORDERED: cloNIDine HCl 0.1 MG TABLET PO ONE (12:38)
[2018-08-03] MEDS ORDERED: Propofol 500 MG/50 ML INFUS..BTL ONE (13:40)
[2018-08-03] MEDS ORDERED: *HR* Rocuronium Bromide 50 MG/5 ML VIAL ONE ×2 (13:47→16:31)
[2018-08-03] MEDS ORDERED: Lidocaine -MPF 2% 2 ML VIAL ONE (13:47)
[2018-08-03] MEDS ORDERED: *HR* Succinylcholine 200 MG/10 ML VIAL IVP ONE (13:47)
[2018-08-03] MEDS ORDERED: *HR* FentaNYL (PF) 100 MCG/2 ML VIAL ONE ×2 (14:33→15:53)
[2018-08-03] MEDS ORDERED: *HR* Midazolam HCl 2 MG/2 ML VIAL ONE (14:33)
[2018-08-03] MEDS ORDERED: Lidocaine/EPI 1:100k 2% 20 ML VIAL ONE (14:39)
[2018-08-03] MEDS ORDERED: *HR* HYDROmorphone (PF) 1 MG/ML SYRINGE IVP PRN (15:57)
[2018-08-03] MEDS ORDERED: Ondansetron 4 MG/2 ML VIAL IVP ONE (15:57)
[2018-08-03] MEDS ORDERED: Acetaminophen IV 1,000 MG/100 ML INFUS..BTL IVPB ONE (15:57)
[2018-08-03] MEDS ORDERED: Ketorolac 30 MG/ML VIAL IVP ONE (15:57)
[2018-08-03] MEDS ORDERED: Ipratropium/Albuterol Neb 3 ML IH PRN ×2 (15:57→21:07)
[2018-08-03] MEDS ORDERED: *HR* Promethazine 25 MG/ML VIAL IVP PRN ×2 (15:57→21:07)
--- NOTE | 2018-08-03 15:57 | Event Note ---
Date of Encounter: 08/03/18 Time of Encounter: 14:[address] EPIDURAL CATHETER AT T11-T12 IN THE SITTING POSITION. UNABLE TO IDENTIFY INTERSPACE. PROCEDURE ABANDONED. 2% LIDO/EPI X 20 ML TOTAL USED. STERILE OCCLUSIVE DRESSING.
[2018-08-03] MEDS ORDERED: Dexamethasone 4 MG/ML VIAL ONE (16:33)
[2018-08-03] MEDS ORDERED: Ondansetron 4 MG/2 ML VIAL ONE (16:33)
[2018-08-03] MEDS ORDERED: Clinimix E 5%-15% SOLUTION 2,000 ML with MVI, adult with vitamin K 10 ML IVC SCH ×2 (17:00→21:07)
[2018-08-03] MEDS ORDERED: Neostigmine Methylsulfate 3 MG/3 ML SYRINGE ONE (17:31)
[2018-08-03] MEDS ORDERED: *HR* HYDROMORPHONE 2 MG/ML VIAL ONE (17:36)
[2018-08-03] MEDS ORDERED: *HR* PHENYLEPHRINE 1,000 MCG/10 ML SYRINGE IVP ONE (18:17)
[2018-08-03] MEDS ORDERED: Ketorolac 30 MG/ML VIAL ONE (19:17)
--- NOTE | 2018-08-03 20:08 | Operative Note ---
Date of procedure: 08/03/18 Pre-op diagnosis: Perforated sigmoid diverticulitis Post-op diagnosis: same (with intra-abdominal abscess) Procedure: Exploratory laparotomy with Silvia procedure, takedown of the splenic flexure, incidental appendectomy Complications: none immediate Anesthesia: JULIETTE Surgeon: Tamiko Louis Was there an activities assistant present: Yes Technical Business Systems Analyst: Marlene Vega Estimated blood loss (cc): 100 Urine output (cc): 300 Specimen: left colon, appendix Condition: stable Disposition: PACU Procedure in Detail: was brought into the operating suite and placed supine on the operating table. Sign in was performed and everyone was in agreement. Anesthesia was induced and patient was endotracheally divided by anesthesia without incident. Aguilar catheter was placed by circulating nurse. NG tube was placed by anesthesia. The abdomen was shaved. The blue pigtail in the right lower quadrant previously placed by IR was removed. The abdomen was prepped and draped in the usual sterile fashion. Timeout was performed again everyone was in agreement. Midline incision through the skin and the subcutaneous tissue was made with a 10 blade starting approximately 10 inches above the umbilicus down to several centimeters above the suprapubic area. Dissection through the subcutaneous tissue to the intra-abdominal wall linea alba fascia was accomplished with the Bovie. Fairview's are placed on either side of the fascia for retraction and the abdomen was entered with the Bovie and the fascial incision elongated. The Bookwalter was placed for exposure and retraction. Small bowel was packed into the right upper quadrant with wet towels and Bookwalter malleable. The sigmoid was adhesed in several places to the anterior abdominal wall and gentle blunt dissection was utilized to separate the sigmoid from the abdominal wall at which point we entered an abscess cavity, which we suctioned free with the Bovie. The sigmoid colon was taken off the left lateral abdominal wall the white line of Toldt with the Bovie. The mesorectum proximally was scored with the Bovie bilaterally. An area of proximal sigmoid which was soft and pliable, not involving formation was chosen for transection. An area in the mesentery beneath this area of colon was opened with the Bovie. The colon was then transected with a linear NEO-75 stapler blue load. The mesentery the sigmoid was taken down with the impact LigaSure down to the proximal rectum. An opening beneath the rectum just distal to the area of inflammation involving the sigmoid and proximal rectum was opened with gentle blunt dissection and the Bovie. The proximal rectum was then transected with a contour stapler green load. The remainder of the mesentery of the rectosigmoid area was taken down with the impact LigaSure and the specimen placed off to the back table for pathology. The abdomen was copiously irrigated with sterile saline. The appendix was located and a [place] was placed on this for retraction. An opening beneath the appendix at the base of the cecum was made with a Shreya. The appendix was transected off the cecum with an linear NEO-75 stapler blue load. The mesoappendix was taken down with the impact LigaSure and the appendix placed off to the back table for pathology. A 19-[place] Javi drain was placed to the left lower quadrant abdominal wall and down into the pelvis anterior to the rectum, the drain was secured to the skin with 2-0 silk stitch. The rectal stump was marked with a 2-0 Prolene [id number] stitch. Fairview's are placed on the left abdominal wall fascia. An area superior and lateral to the umbilicus was chosen for the creation of the colostomy. The skin was grasped with a Daljit and a 2-1/2 cm circular disc of skin was excised with the underlying subcutaneous tissue with the Bovie. A cruciate incision was made in the anterior rectus fascia with the Bovie, the rectus muscle was split in the direction of the fibers with a Shreya. A folded lap was placed beneath the area of the colostomy creation against the abdominal wall and the posterior fascia of the rectus muscle was opened with the Bovie. The opening in the rectus abdominal wall was enlarged digitally to accommodate 2-1/2-3 fingers breaths, as the patient due to his size had a significant amount of fat on the colon. The staple line of the left colon was brought up through the abdominal wall with the Daljit. Paul's are placed on either side of the fascia for retraction. Several sheets of Seprafilm were placed in the abdomen over the small bowel beneath the fascia. The abdominal wall was closed with 2 separate 0 looped PDS running stitches meeting in the middle. The subcutaneous tissue was copiously irrigated with sterile saline. The subcutaneous tissue was reapproximated with 3-0 Vicryl interrupted stitches. The skin was closed with agustina. 3 Babcocks were placed on the staple line of the left colon which was then transected with heavy curved scissors. There was no bleeding from the transected colon wall. 2 Babcocks were placed on the distal colon, and another centimeter and a half of colon wall was transected with heavy curved scissors, again there was no bleeding. 500 mg O Fluoroscene dye was injected by anesthesia through the IV. A Fierro lamp was used to evaluate the colon that was brought out to create the colostomy and no visualization of the floor seen was seen. The open colon was closed with a 3-0 Vicryl running stitch. The agustina were removed from the abdominal wall. The 3-0 Vicryl subcutaneous stitches were cut. The 2-0 PDS fascial stitches were removed. Bookwalter was placed for retraction and exposure. The colon was brought back through into the abdominal cavity and evaluated. There appeared to be a gradual transition in the middle left colon. The left colon and splenic flexure were taken down with gentle blunt dissection and the Bovie. Towels were laid over the abdominal wall isolating the colon, heavy curved scissors were used to transect the colon, there was scant bleeding. Another area of the left colon several cm, 5-6 cm proximal to this area, was transected with heavy curved scissors, this time demonstrating appropriate bleeding. Babcocks were placed on the colon wall and the colon was closed with a linear NEO-75 stapler blue load. The colon was then brought through the opening in the left rectus muscle. Paul's are placed on either side of the fascia for retraction. 3 pieces of Seprafilm were placed in the abdominal cavity over the small bowel and along the left colon. The abdominal wall was closed with 2 separate 0 PDS looped running stitches meeting in the middle. The subcutaneous tissue was copiously irrigated with sterile saline. Subcutaneous tissue was reapproximated with 3-0 Vicryl interrupted stitches. The skin was closed with agustina. A towel was placed over the closed the abdominal wall. Babcocks were placed on the left colon staple line and the staple line was transected with heavy curved scissors, there was appropriate bleeding. The colostomy was created with 3-0 Vicryl full thickness colon wall stitches to the subcutaneous tissue circumferentially around the colon. Colostomy faceplate and appliance were placed over the newly created colostomy. 3 areas of the incision proximally and, middle, distally were packed with quarter inch iodoform packing. 4 x 4 gauze and Medipore tape were applied to the midline as a dressing. Drain sponge was placed to the left lower quadrant Javi drain and secured with tape. The previous blue pigtail drain site was covered with 4 x 4 gauze and secured with tape. All lap and instrument counts are correct at the end of the case. Patient tolerated the procedure well. He was taken to PACU in stable condition after he was awoken by anesthesia and extubated in the OR. Aguilar catheter remained with the patient
--- NOTE | 2018-08-03 20:31 | Anesthesia Evaluation Post Op ---
Date of Encounter: 08/03/18 Time of Encounter: 20:30 - Vital Signs Vital Signs: Vital Signs/O2 Sat/Glucose, Most Current Temp Pulse Resp BP Pulse Ox 08/03/18 20:22 97.2 F L 81 20 110/78 93 08/03/18 20:12 88 20 117/76 93 08/03/18 20:02 84 20 123/65 92 08/03/18 19:52 97.2 F L 97 22 130/81 92 - Lungs Lungs: Clear Ascult./Percussion - Airway Airway: Non-obstructed - Cardiovascular Regular Rate - Mental Status Mental Status: Alert & Oriented, Answers Appropriately - Pain Pain Scale: 4 Pain Scale used: Numeric (1 - 10) - Nausea Vomiting Nausea Vomiting: Not Present - Hydration Hydration: Tolerates oral liquids, Aguilar catheter - Discharge PostOp Status: Transfer Patient to floor Anes Supervising Prov Stmt: Pt seen/evaluated, VSS And has met criteria for discharge to floor. - MD [place]
[2018-08-03] MEDS ORDERED: *HR* HYDROmorphone 20 MG/20 ML PCA IVC PRN (21:07)
[2018-08-03] MEDS ORDERED: *HR* LORazepam 2 MG/ML VIAL IVP PRN (21:07)
[2018-08-03] MEDS ORDERED: Ondansetron 4 MG/2 ML VIAL IVP PRN (21:07)
[2018-08-03] MEDS ORDERED: Naloxone 0.4 MG/ML INJ IVP PRN (21:07)
[2018-08-03] MEDS ORDERED: D10% in Water 500 ML IVC PRN (21:07)
[2018-08-03] MEDS: 0.9 % Sodium Chloride 1,000 ML IVC SCH (22:26)
[2018-08-04] MEDS: Piperacillin/Tazobactam 3.375 GM in 0.9 % Sodium Chloride Mini Bag 100 ML IVPB SCH ×3 (00:22→17:15)
[2018-08-04] MEDS: Acetaminophen IV 1,000 MG/100 ML INFUS..BTL IVPB SCH ×4 (03:47→21:18)
[2018-08-04 04:04] LABS: BUN/Creatinine Ratio 15 (6-26); Blood Urea Nitrogen 14 mg/dL (6-20); Carbon Dioxide 27 mEq/L (23-29); Chloride 106 mEq/L (98-107); Glucose 212 mg/dL (70-105); Osmolality,Calculated 297 (280-300); Phosphorous 4.1 mg/dL (2.7-4.5); Potassium 3.7 mEq/L (3.5-5.1); Sodium 140 mEq/L (136-145); eGFR For Non-African Americans > 60 (> 60)
[2018-08-04] MEDS ORDERED: Dextrose Gel 15 GM/37.5 ML TUBE PO PRN ×2 (04:39)
[2018-08-04] MEDS ORDERED: *HR* Dextrose 50 % in Water (Syg) 50 ML SYRINGE IVP PRN (04:39)
[2018-08-04] MEDS ORDERED: D5% in Water 1,000 ML IVC PRN (04:39)
[2018-08-04] MEDS: Insulin LISPRO 300 UNITS/3 ML VIAL SQ SCH ×5 (05:04→21:19)
[2018-08-04] MEDS: *HR* Heparin 5,000 UNIT/ML VIAL SQ SCH ×3 (05:04→21:18)
[2018-08-04] MEDS: Pantoprazole 40 MG VIAL IVP SCH (05:57)
[2018-08-04 08:49] LABS: Basophils % 0.2 %; Hematocrit 35.6 % (37.5-50.1); Hemoglobin 11.2 g/dL (12.9-16.9); Immature Granulocytes % 1.5 % (0-4); Lymphocytes % 4.8 %; Mean Corpuscular HGB Conc 31.5 g/dL (31.6-35.5); Mean Corpuscular Hemoglobin 27.1 pg (28.0-33.3); Mean Platelet Volume 9.4 fL (9.4-12.4); Monocytes # 1.2 K/mcL (0.0-1.3); Monocytes % 6.2 %; Neutrophils # 17.5 K/mcL (1.6-8.9); Platelet Count 398 K/mcL (140-400); Red Blood Count 4.14 M/mcL (4.19-5.50); Red Cell Distribution Width 15.9 % (11.5-14.5); Segmented Neutrophils % 87.3 %
[2018-08-04] MEDS: Fluconazole 400 MG/200 ML 400 MG/200 ML BAG IVPB SCH (09:22)
--- NOTE | 2018-08-04 12:20 | General Surgery Progress Note ---
<Sahra Roberts - Last Filed: 08/04/18 12:43> Date of Encounter: 08/04/18 Time of Encounter: 12:00 - Assessment and Plan (1) Perforation of sigmoid colon due to diverticulitis Current Visit: Yes Status: Acute POD #1 exploratory laparotomy with Coello's procedure, takedown of splenic flexure, incidental appendectomy with Dr. Louis Clear liquid diet while awaiting return of bowel function Continue TPN for nutritional support IV antibiotics- Zosyn and Diflucan IV fluids- 50ml/hour Supportive care and pain control- MEDICATION CARE MANAGER pump working well for pain control, ofirmev Daily wound care- pack open areas with a 1/4 inch iodoform gauze daily Ambulate hallways TID with assistance IS every 1 hour while awake PPI therapy daily Repeat am labs- CBC, BMP, Mg, Phos (2) Leukocytosis Current Visit: Yes Status: Acute WBC- 18>18.5>20 POD #1 exploratory laparotomy, Coello's procedure, takedown of splenic flexure and incidental appendectomy Continue IV antibiotics Repeat am labs Qualifiers: Leukocytosis type: unspecified Qualified Code(s): D72.829 - Elevated white blood cell count, unspecified (3) Obesity Current Visit: Yes Status: Chronic Qualifiers: Obesity type: due to excess calories Obesity classification: adult class 3 (BMI >= 40) Serious obesity comorbidity presence: with serious comorbidity Body mass index: BMI 45.0-49.9 Qualified Code(s): E66.01 - Morbid (severe) obesity due to excess calories; Z68.42 - Body mass index (BMI) 45.0-49.9, adult (4) DVT prophylaxis Current Visit: Yes Status: Acute Heparin 5000 units subcutaneous 3 times a day for DVT prophylaxis Ambulate hallways 3 times a day with assistance EPCDs bilateral lower extremities for DVT prophylaxis Subjective Patient reports: no new complaints, feels better, still having pain (expected post-operative pain), tolerating liquids well (sipping on clear liquids, not much appetite), no flatus, no bowel movement, afebrile Objective Vital Signs - Last 8 Hours Temp Pulse Resp BP Pulse Ox 08/04/18 11:30 97.7 F 77 16 147/96 92 08/04/18 06:42 97.6 F 71 16 129/86 93 Intake and Output 08/03/18 08/04/18 08/04/18 23:59 07:59 15:59 Intake Total 200 / 200 460 / 460 Output Total 555 / 555 670 / 670 250 / 250 Balance -555 / -555 -470 / -470 210 / 210 Intake: IV Fluids 200 / 200 100 / 100 Ofirmev 1,000 mg/100 ml 1,000 100 / 100 100 / 100 mg In 100 ml @ 400 mls/hr IVPB Q6H [facility] Rx#:[id number] Zosyn 3.375 GM In 0.9 % Sodium 100 / 100 Chloride (Mini-Bag +) 100 ML @ 25 mls/hr IVPB Q8H [facility] Rx#: [id number] Oral 0 / 0 360 / 360 Output: Urine 300 / 300 Estimated Blood Loss 100 / 100 Urine Amount (Catheter) 75 / 75 Catheter 600 / 600 250 / 250 Wound Drainage 80 / 80 70 / 70 Left Abdomen 40 / 40 70 / 70 Other: Meal npo Blood Glucose* 205 132 - General physical appearance well developed, no distress, obese - Eyes normal ocular movement - ENT normal mucosa, atraumatic, normocephalic - Neck Neck exam: trachea midline - Respiratory normal respiratory effort, clear to auscultation, other (diminished bibasilar bases) - Cardiovascular Cardiovascular exam: Present: RRR - Abdomen Abdomen: Present: soft, tender (Expected postoperative tenderness), wound (Ostomy is pink and moist without flatus or stool noted; midline with 3 open areas with small amount of serosanguineous drainage noted.) - Incision Incision: Present: serosanguinous (Small amount of drainage noted to 3 open areas of midline) - Genitourinary other (López catheter to straight drain with clear, yellow urine) - Neurologic CN 2-12 grossly intact - Psychiatric oriented to time, oriented to person, oriented to place, speech is normal, memory intact - Labs 08/04/18 08:19 08/04/18 03:30 Diabetes panel 08/04/18 Range/Units 03:30 Sodium 140 (136-145) mEq/L Potassium 3.7 (3.5-5.1) mEq/L Chloride 106 (98-107) mEq/L Carbon Dioxide 27 (23-29) mEq/L BUN 14 (6-20) mg/dL Creatinine 0.91 (0.70-1.30) mg/dL Glucose 212 H (70-105) mg/dL Calcium 8.0 L (8.6-10.3) mg/dL Calcium panel 08/04/18 Range/Units 03:30 Calcium 8.0 L (8.6-10.3) mg/dL Phosphorus 4.1 (2.7-4.5) mg/dL Pituitary panel 08/04/18 Range/Units 03:30 Sodium 140 (136-145) mEq/L Potassium 3.7 (3.5-5.1) mEq/L Chloride 106 (98-107) mEq/L Carbon Dioxide 27 (23-29) mEq/L BUN 14 (6-20) mg/dL Creatinine 0.91 (0.70-1.30) mg/dL Glucose 212 H (70-105) mg/dL Calcium 8.0 L (8.6-10.3) mg/dL Adrenal panel 08/04/18 Range/Units 03:30 Sodium 140 (136-145) mEq/L Potassium 3.7 (3.5-5.1) mEq/L Chloride 106 (98-107) mEq/L Carbon Dioxide 27 (23-29) mEq/L BUN 14 (6-20) mg/dL Creatinine 0.91 (0.70-1.30) mg/dL Glucose 212 H (70-105) mg/dL Calcium 8.0 L (8.6-10.3) mg/dL Consult Discharge Plan - Plan Referrals: Demi Rogers, DIV[employer]OPS FARMWORKER [Primary Care Provider] - - Attending Attestation For this encounter, I have reviewed the BIOFUELS PRODUCTION MANAGER or PA documentation, treatment plan, and medical decision making; and I have had face to face time with this patient. <Tamiko Louis - Last Filed: 08/05/18 16:34> Date of Encounter: 08/04/18 - Assessment and Plan (1) Perforation of sigmoid colon due to diverticulitis Current Visit: Yes Status: Acute s/p radha's, takedown splenic flexure, incidental appendectomy continue clears per patient request continue video surveillance technician - well controlled postoperative pain continue abx continue TPN/IVF hydration gi/dvt prophylaxis ambulate continue lópez for accurate I/O's trend labs daily dressing changes/midline packing (2) HTN (hypertension) Current Visit: Yes Status: Chronic continue home meds prn hydralazine controlled, monitor Qualifiers: Hypertension type: essential hypertension Qualified Code(s): I10 - Essential (primary) hypertension (3) Obesity Current Visit: Yes Status: Chronic Qualifiers: Obesity type: due to excess calories Obesity classification: adult class 3 (BMI >= 40) Serious obesity comorbidity presence: with serious comorbidity Body mass index: BMI 45.0-49.9 Qualified Code(s): E66.01 - Morbid (severe) obesity due to excess calories; Z68.42 - Body mass index (BMI) 45.0-49.9, adult (4) Leukocytosis Current Visit: Yes Status: Acute trend continue abx awaiting culture results Qualifiers: Leukocytosis type: unspecified Qualified Code(s): D72.829 - Elevated white blood cell count, unspecified Subjective Patient reports: no new complaints, feels better, still having pain, tolerating liquids well (sips only), voiding w/o difficulty (lópez with clear yellow urine), no flatus, no bowel movement, afebrile Objective Vital Signs - Last 8 Hours Temp Pulse Resp BP Pulse Ox 08/05/18 15:36 153/94 08/05/18 14:53 98.2 F 97 18 95 08/05/18 11:48 98.0 F 86 18 155/95 91 Intake and Output 08/05/18 08/05/18 08/05/18 07:59 15:59 23:59 Intake Total 1250 / 1250 3650 / 3650 Output Total 1620 / 1620 2168 / 2168 Balance -370 / -370 1482 / 1482 Intake: IV Fluids 450 / 450 1920 / 1920 0.9 % Sodium Chloride 1,000 ML 1000 / 1000 @ 50 mls/hr IVC .Q20H [facility] Rx#: [id number] Rocephin 2,000 MG In Water for 20 / 20 inj. (sterile) 20 ML @ 600 mls/ hr IVP Q24H [facility] Rx#:[id number] Ofirmev 1,000 mg/100 ml 1,000 100 / 100 200 / 200 mg In 100 ml @ 400 mls/hr IVPB Q6H [facility] Rx#:[id number] Cubicin 650 MG In 0.9 % Sodium 100 / 100 Chloride 100 ML @ 200 mls/hr IVPB Q24H [facility] Rx#:[id number] Intralipid 20% 250 ML @ 21 mls/ 250 / 250 hr IVPB DAILY@1700 [facility] Rx#: [id number] Diflucan Premix 400 MG/200 ML 200 / 200 400 mg In 200 ml @ 200 mls/hr IVPB DAILY [facility] Rx#:[id number] Zyvox Premix 600mg/300mL 600 mg 300 / 300 In 300 ml @ 150 mls/hr IVPB Q12HR [facility] Rx#:[id number] Zosyn 3.375 GM In 0.9 % Sodium 100 / 100 100 / 100 Chloride (Mini-Bag +) 100 ML @ 25 mls/hr IVPB Q8H [facility] Rx#: [id number] Oral 800 / 800 1730 / 1730 Output: Catheter 1600 / 1600 2150 / 2150 Urethral (López) 1150 / 1150 Wound Drainage Left Abdomen Other: Blood Glucose* 155 107 118 - General physical appearance well developed, no distress, obese - Eyes PERRL - ENT normal mucosa, normocephalic - Neck Neck exam: trachea midline - Respiratory normal expansion, clear to auscultation - Cardiovascular Cardiovascular exam: Present: RRR - Abdomen Abdomen: Present: soft, tender, wound. Absent: bowel sounds present, guarding, rebound Additional Comments: colostomy - pink viable, edematous - Genitourinary other - Integumentary no rash, no growths - Neurologic CN 2-12 grossly intact - Musculoskeletal normal posture - Psychiatric oriented to time, oriented to person, oriented to place, speech is normal, memory intact - Labs 08/05/18 03:50 08/05/18 03:50 Diabetes panel 08/05/18 08/05/18 Range/Units 03:50 10:49 Sodium 138 (136-145) mEq/L Potassium 3.8 (3.5-5.1) mEq/L Chloride 103 (98-107) mEq/L Carbon Dioxide 28 (23-29) mEq/L BUN 19 (6-20) mg/dL Creatinine 0.88 (0.70-1.30) mg/dL Glucose 140 H (70-105) mg/dL Calcium 8.4 L (8.6-10.3) mg/dL AST 45 H (13-39) Units/L ALT 37 (7-52) Units/L Alkaline Phosphatase 54 (34-104) Units/L Albumin 2.8 L (3.5-5.7) g/dL Calcium panel 08/05/18 08/05/18 Range/Units 03:50 10:49 Calcium 8.4 L (8.6-10.3) mg/dL Phosphorus 3.7 (2.7-4.5) mg/dL Albumin 2.8 L (3.5-5.7) g/dL Pituitary panel 08/05/18 Range/Units 03:50 Sodium 138 (136-145) mEq/L Potassium 3.8 (3.5-5.1) mEq/L Chloride 103 (98-107) mEq/L Carbon Dioxide 28 (23-29) mEq/L BUN 19 (6-20) mg/dL Creatinine 0.88 (0.70-1.30) mg/dL Glucose 140 H (70-105) mg/dL Calcium 8.4 L (8.6-10.3) mg/dL Adrenal panel 08/05/18 08/05/18 Range/Units 03:50 10:49 Sodium 138 (136-145) mEq/L Potassium 3.8 (3.5-5.1) mEq/L Chloride 103 (98-107) mEq/L Carbon Dioxide 28 (23-29) mEq/L BUN 19 (6-20) mg/dL Creatinine 0.88 (0.70-1.30) mg/dL Glucose 140 H (70-105) mg/dL Calcium 8.4 L (8.6-10.3) mg/dL Total Bilirubin 0.3 (0.3-1.0) mg/dL AST 45 H (13-39) Units/L ALT 37 (7-52) Units/L Alkaline Phosphatase 54 (34-104) Units/L Albumin 2.8 L (3.5-5.7) g/dL - Attending Attestation I have personally performed a face to face evaluation on this patient. I have reviewed and agree with the care plan. History and Exam by me shows:
[2018-08-04] MEDS: Ipratropium/Albuterol Neb 3 ML IH SCH ×2 (15:42→22:04)
[2018-08-04] MEDS ORDERED: Clinimix E 5%-15% SOLUTION 2,000 ML with MVI, adult with vitamin K 10 ML IVC SCH (17:00)
[2018-08-04] MEDS: 0.9 % Sodium Chloride 1,000 ML IVC SCH (17:21)
[2018-08-04] MEDS: *HR* HYDROmorphone 20 MG/20 ML PCA IVC PRN (19:27)
[2018-08-04] MEDS: cloNIDine HCl 0.1 MG TABLET PO SCH (21:19)
[2018-08-05] MEDS: Piperacillin/Tazobactam 3.375 GM in 0.9 % Sodium Chloride Mini Bag 100 ML IVPB SCH ×2 (00:53→08:24)
[2018-08-05] MEDS: Insulin LISPRO 300 UNITS/3 ML VIAL SQ SCH ×6 (00:53→20:49)
[2018-08-05] MEDS: Acetaminophen IV 1,000 MG/100 ML INFUS..BTL IVPB SCH ×4 (03:18→20:49)
[2018-08-05] MEDS: Ipratropium/Albuterol Neb 3 ML IH SCH ×4 (03:32→22:03)
[2018-08-05 04:08] LABS: Basophils % 0.2 %; Eosinophils # 0.1 K/mcL (0.0-0.6); Eosinophils % 0.3 %; Hematocrit 32.7 % (37.5-50.1); Hemoglobin 10.3 g/dL (12.9-16.9); Immature Granulocytes % 1.7 % (0-4); Lymphocytes # 1.4 K/mcL (0.6-4.6); Mean Corpuscular HGB Conc 31.5 g/dL (31.6-35.5); Mean Corpuscular Hemoglobin 26.6 pg (28.0-33.3); Mean Corpuscular Volume 84.5 fL (83.0-100.0); Mean Platelet Volume 9.5 fL (9.4-12.4); Monocytes # 1.6 K/mcL (0.0-1.3); Monocytes % 7.9 %; Neutrophils # 16.6 K/mcL (1.6-8.9); Platelet Count 418 K/mcL (140-400); Red Blood Count 3.87 M/mcL (4.19-5.50); Red Cell Distribution Width 15.6 % (11.5-14.5); Segmented Neutrophils % 82.9 %
[2018-08-05 04:25] LABS: BUN/Creatinine Ratio 22 (6-26); Blood Urea Nitrogen 19 mg/dL (6-20); Calcium 8.4 mg/dL (8.6-10.3); Carbon Dioxide 28 mEq/L (23-29); Chloride 103 mEq/L (98-107); Glucose 140 mg/dL (70-105); Magnesium 2.1 mg/dL (1.6-2.6); Osmolality,Calculated 291 (280-300); Phosphorous 3.7 mg/dL (2.7-4.5); Potassium 3.8 mEq/L (3.5-5.1); Sodium 138 mEq/L (136-145); eGFR For Non-African Americans > 60 (> 60)
[2018-08-05] MEDS: Pantoprazole 40 MG VIAL IVP SCH (05:45)
[2018-08-05] MEDS: *HR* Heparin 5,000 UNIT/ML VIAL SQ SCH ×3 (05:45→20:49)
[2018-08-05] MEDS: Fluconazole 400 MG/200 ML 400 MG/200 ML BAG IVPB SCH (08:25)
--- NOTE | 2018-08-05 10:02 | Infectious Disease Consult ---
Date of Encounter: 08/05/18 Time of Encounter: 09:58 Assessment and Plan (1) Sepsis Status: Acute Assessment and plan: The patient had 3 sepsis criteria on admission. Likely secondary to perforated diverticulitis and intra-abdominal abscess. Improved. Fevers and tachycardia have resolved. He continues to have leukocytosis. Blood cultures drawn 07/26/18 are no growth to date 2 sets. Clinically, the patient looks great. He does have a PICC line, but clinically does not appear infected. Recommendations: Repeat blood cultures 2. Check amylase, lipase, LFTs. Check baseline CK level. Pain management/surgical site care/diet/TPN per the surgery team. Discontinue Zosyn and Zyvox. Start Rocephin 2 grams IV daily. Start Daptomycin 4mg/kg IV daily. Start flagyl 500mg PO TID. Continue fluconazole 400 mg IV daily. Duration of treatment depends on the clinical picture. Monitor renal function and dose adjust antibiotics. Qualifiers: Sepsis type: sepsis due to unspecified organism Qualified Code(s): A41.9 - Sepsis, unspecified organism (2) Intra-abdominal abscess Status: Acute Assessment and plan: Location: Right lower quadrant. Causative organism: Klebsiella pneumoniae, Escherichia coli, VRE, and Bacteroides 2. Jos Er to perforated diverticulitis. CT of the abdomen and pelvis 07/29/18 showed a 6 cm abscess to the right lower quadrant with additional fluid pockets to the right lower and left lower quadrants. Status post drain placement 07/29/18 by interventional radiology. Approximate 40 mls of purulent drainage removed from the abdomen and sent for culture. Repeat CT 08/01/18 showed resolution of the abscess, but did show small persistent leak of the sigmoid colon. Gen. surgery following. Status post exploratory laparotomy with Silvia procedure, takedown of the splenic flexure, and appendectomy 08/03/[address] Louis. No additional cultures were obtained. Currently on Zosyn, fluconazole, and Zyvox. (3) Perforation of sigmoid colon due to diverticulitis Status: Acute Assessment and plan: CT the abdomen and pelvis 07/26/18 showed findings consistent with perforated sigmoid diverticulitis and scattered foci of intraperitoneal air throughout the abdomen. Gen. surgery following. Opted initially to pursue conservative treatment, but the patient had persistent sepsis-like picture a repeat CT showed a persistent leak, so the patient was taken to the operating room 08/03/18 for expiratory laparotomy with Silvia procedure, takedown splenic flexure, and appendectomy by Dr. Louis. (4) Shortness of breath Status: Resolved Assessment and plan: CXR 08/02/18 showed persistent bibasilar infiltrates concerning for atelectasis vs. PNA. Clinically, does not appear to have PNA, but consider CT chest to evaluate given persisent leukocytosis. Supportive care per the primary team. (5) HTN (hypertension) Status: Chronic Qualifiers: Hypertension type: essential hypertension Qualified Code(s): I10 - Essential (primary) hypertension (6) Obesity Status: Chronic Qualifiers: Obesity type: due to excess calories Obesity classification: adult class 3 (BMI >= 40) Serious obesity comorbidity presence: with serious comorbidity Body mass index: BMI 45.0-49.9 Qualified Code(s): E66.01 - Morbid (severe) obesity due to excess calories; Z68.42 - Body mass index (BMI) 45.0-49.9, adult Infectious Disease HPI - Data of Consult Patient: new to practice Consult date: 08/05/18 Requesting Physician: Tamiko Louis MD Primary Care Provider: Demi Rogers CNP - Consult Narrative Reason for consult: Intra-abdominal abscess, leukocytosis History of present illness: Mr. Liao is a 38 year old male with past medical history of obesity and hypertension. The patient was admitted to the hospital 07/26/18 for diverticulitis. We are consulted 08/03/18 for antibiotic recommendations for per forated sigmoid diverticulitis and intra-abdominal abscess. Briefly, the patient is a 38-year-old male with past medical history as stated above. The patient presented to the emergency department on the day of admission with acute onset of abdominal pain approximately one hour prior to presentation while he was at work. Upon arrival, patient was afebrile. He was mildly tachycardic with hypertension, but was otherwise hemodynamically stable. Laboratory studies revealed leukocytosis, but renal function, lactic acid, and liver function tests were normal. Urinalysis was negative. Blood cultures were obtained 2 sets that were negative[address] CT the abdomen and pelvis showed findings consistent with perforated sigmoid diverticulitis and scattered foci of intraperitoneal air throughout the abdomen. He was given a dose of IV Zosyn. Prior to leaving the emergency department, he became febrile and tachycardic. He was admitted to the hospital for further evaluation. After admission, the patient continued to have some intermittent fevers and tachycardia. He was started on fluconazole, vanc, and zosyn. He had persistent leukocytosis. A repeat CT of the abdomen and pelvis 07/29/18 showed a 6 cm abscess in the right lower quadrant as well as additional fluid collections in the right lower and left lower quadrants. Interventional radiology was consulted and placed drain in the large right lower quadrant fluid collection. 40 and also purulent drainage was removed and sent for culture that grew out Klebsiella pneumoniae, Escherichia coli, VRE, and 2 strains of Bacteroides. The IV Zosyn was continued, but the vancomycin was transitioned to Zyvox. The patient continued again to have persistent leukocytosis and the dose of fluconazole was increased to 100 daily on 07/31/18. He continued to have some intermittent tachypnea and fevers and leukocytosis. The abdomen and pelvis completed 08/01/18 showed resolution of the fluid collections, but did show findings consistent with a small persistent leak of the sigmoid colon area he was taken to the operating room 08/03/18 and underwent exploratory laparotomy with Silvia procedure takedown of the splenic flexure and incidental appe ndectomy by Dr. Louis. Postop, the patient has been afebrile hemodynamically stable. He continues to have leukocytosis with neutrophilic predominance. Currently, he is on Zosyn, Zyvox, and fluconazole. We have been asked to evaluate and make further recommendations. During my exam today, the patient endorses a history as stated above. Since surgery, the patient states he feels great. He reports minimal pain at the surgical site. He denies any fevers or chills or rigors. Denies any headache or neck pain. Reports some mild nasal congestion prior to surgery, but none since then. He denies any shortness of breath or cough at this time. He denies any pain in his chest. He denies any nausea or vomiting. He has not had any stool output from his colostomy thus far. He denies any pain or redness or swelling at the site of his PICC line. He denies any back or extremity pain. He does endorse chronic pain in the right ankle that is at baseline. He denies any oral thrush or new skin lesions. The patient lives at home with his family. 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 He does chew one can of chewing tobacco per day. He denies any alcohol or illicit drug use. He denies any chronic infectious diseases. He denies any recent travel outside the [facility]. He denies any pet or animal exposures. CC: Tamiko Louis MD Past Med Surg Social Fam HX - Past Medical History Attestation: Yes The following information was validated with the patient. Source: patient, old records reviewed, nursing notes reviewed Medical history: hypertension, other (obesity) Psychiatric history: no psych history - Past Surgical History Surgical History: other (see below) Additional surgical history: fx rt tib/fib. fx both hand fx. nasal fx. t&A - Social History Smoking Status: Never smoker Smokeless Tobacco Status: Yes (Daily) Alcohol use: none Drug use: none Occupational status: employed Current living situation: Home, With Family Activity Level: Independent ambulation Recent Out of Country Travel Within the Last 8 Weeks: No Exposure or Possible Exposure to Illness During Travel: No Infectious Disease-CN:Meds Losartan Potassium [Cozaar] 100 mg PO DAILY 01/07/17 [History] RX: Triamterene/HCTZ 37.5/25mg [Dyazide] 1 cap PO DAILY 01/07/17 [History] cloNIDine HCl [CloNIDine HCl] 0.1 mg PO HS PRN MDD >160/90 01/07/17 [History] Meloxicam 15 mg PO DAILY 07/27/18 [History] Allergy/AdvReac Type Severity Reaction Status Date / Time YANA Inhibitors AdvReac THROAT Verified 07/27/18 14:30 ITCH, COUGH codeine AdvReac Vomiting, Verified 07/27/18 14:30 STOMACH PROBLEMS All systems: reviewed and no additional remarkable complaints except as stated Exam - Constitutional Vitals: Temp Pulse Resp BP Pulse Ox 97.9 F 81 18 132/90 95 08/05/18 07:05 08/05/18 07:05 08/05/18 07:05 08/05/18 07:05 08/05/18 07:05 General appearance: cooperative, morbidly obese, no acute distress - Head Head exam: Present: atraumatic, normal inspection, normocephalic - Eye Eye exam: Present: EOMI, normal appearance, PERRL Pupils: Present: normal accommodation - ENT ENT exam: Present: mucous membranes moist - Neck Neck exam: Present: normal inspection - Respiratory Respiratory exam: Present: CTAB. Absent: rales, respiratory distress, rhonchi, wheezes - Cardiovascular Cardiovascular exam: Present: RRR, +S1, +S2 - GI/Abdominal GI/Abdominal exam: Present: distended (Obese), hypoactive bowel sounds, soft, tenderness (Mild tenderness at the surgical site.) Additional comments: Midline abdominal incision dressing clean, dry, and intact. Colostomy noted to the left abdomen with small amount of serous sanguinous drainage noted in the bag. LETICIA drain noted to the left lower quadrant with small amount of serosanguineous drainage. Aguilar catheter noted to be draining clear yellow urine. - Extremities Exam Extremities exam: Present: normal inspection. Absent: joint swelling, pedal edema, tenderness - Neurological Exam Neurological exam: Present: alert, oriented X3, no focal deficits - Psychiatric Psychiatric exam: Present: normal affect, normal mood - Skin Skin exam: Present: dry, intact, normal color, warm - Additional findings Additional findings: PICC line noted to the RUE with transparent dressing C/D/I. No erythema, warmth, or tenderness noted. Infectious Disease CN: Results - Labs CBC & Chem 7: 08/06/18 04:00 08/06/18 04:00 Cultures: Cultures 07/29/18 14:00 Anaerobic Culture - Final Aspirate Bacteroides thetaiotaomicron#2 Bacteroides thetaiotaomicron 07/29/18 14:00 Body Fluid Culture - Final Other-Specify in Comments Klebsiella pneu.ssp pneumoniae Escherichia coli Vancomycin Resistant Enterococcus faecium 07/26/18 22:48 Blood Culture - Final Peripheral Venipuncture No growth. Final report. 07/26/18 23:24 Blood Culture - Final Peripheral Venipuncture No growth. Final report. Serology: Serology 07/26/18 Range/Units 18:09 Urine Color Yellow (Yellow) Urine Clarity Clear (Clear) Urine pH 5.5 (5.0-8.0) pH Units Ur Specific Leonard 1.022 (1.010-1.025) Urine Protein Negative (Neg-Trace) mg/dL Urine Glucose (UA) Normal (Normal) mg/dL Urine Ketones Negative (Negative) mg/dL Urine Blood Negative (Negative) Urine Nitrite Negative (Negative) Urine Bilirubin Negative (Negative) Urine Urobilinogen Normal (Normal) mg/dL Ur Leukocyte Esterase Negative (Negative) Ur Culture Indicated? NO (NO) Consult Discharge Plan - Plan Referrals: Demi Rogers CNP [Primary Care Provider] - - Attending Attestation I have personally performed a face to face evaluation on this patient. I have reviewed and agree with the care plan. History and Exam by me shows: This is an addendum to original report dictated by Belkys Cuevas CNP. Please return to school note for full detail. Patient is a 38-year-old gentleman with past medical history mentioned below presented with perforated diverticulitis and intra-abdominal abscess. Cultures from the intradermal abscess revealed Escherichia coli, clicks of the pneumonia, VRE and Bacteroides patient was started on broad-spectrum antibiotics were asked to evaluate the patient and make further recommendations. Assessment and plan: 1.sepsis 2.intra-abdominal abscess 3.perforation of sigmoid colon due to diverticulitis status post Silvia procedure, takedown splenic flexure and appendectomy 08/03/2018 4.Morbid obesity BMI 47 Recommendations Recommendations: Await repeat blood cultures. Continue Rocephin 2 grams IV daily. Continue daptomycin 4mg/kg IV daily. Baseline CK level elevated, but could be due to recent surgery. Will re-check Thursday. Monitor closely for myalgias and changes in renal function. Continue flagyl 500mg PO TID. Continue fluconazole 400 mg IV daily. Duration of treatment depends on the clinical picture. Monitor renal function and dose adjust antibiotics.
[2018-08-05 11:42] LABS: Albumin 2.8 g/dL (3.5-5.7); Albumin/Globulin Ratio 0.8 (1.1-2.2); Bilirubin,Indirect 0.3 mg/dL (0.0-1.2); Bilirubin,Total 0.3 mg/dL (0.3-1.0); Globulin 3.3 g/dL (2.4-3.5); Total Protein 6.1 g/dL (6.4-8.9)
--- NOTE | 2018-08-05 14:09 | General Surgery Progress Note ---
<Griselda Wright - Last Filed: 08/05/18 14:07> Date of Encounter: 08/05/18 Time of Encounter: 10:00 - Assessment and Plan (1) Perforation of sigmoid colon due to diverticulitis Current Visit: Yes Status: Acute Date of procedure: 08/03/18 Pre-op diagnosis: Perforated sigmoid diverticulitis Post-op diagnosis: same (with intra-abdominal abscess) Procedure: Exploratory laparotomy with Silvia procedure, takedown of the splenic flexure, incidental appendectomy Complications: none immediate Anesthesia: GETA Surgeon: Tamiko Louis POD #2 as above. Awaiting return of bowel function; bowel sweat noted in colostomy. He is voiding per lópez. He had not been OOB at the time of this assessment. Encourage participation with amb and OOB to chair TID. BP is slightly elevated and he is noted to be approximately 12 L positive this admission. Will treat with 40 mg Lasix times 1 Plan: continue supportive care and discomfort management while awaiting full return of bowel function continue López catheter continue G.I. and DVT prophylaxis ambulate TID out of bed to chair TID daily wound care to include daily dressing changes and packing with 1/4 inch iodoform gauze (see wound care) continue IV antibiotics per infectious disease recommendations continue clear liquid diet serial abdominal exams repeat am labs continue TPN until adequate PO replete Lytes as indicated (2) Shortness of breath Current Visit: Yes Status: Acute acute process vs fluid overload Significant weight discrepancy per charting; ordered standing scale weight and reviewed with bedside rn; no additional weights have been recorded Chest x-ray with by basilar infiltrates noted atelectasis versus pneumonia continued scheduled duonebs and aggressive pulmonary toileting pulmonary consult for acappella (3) Wheezing Current Visit: Yes Status: Acute No current wheezing. Continue duonebs. See above (4) HTN (hypertension) Current Visit: Yes Status: Chronic Continue home meds PRN hydralazine IV lasix x1 Qualifiers: Hypertension type: essential hypertension Qualified Code(s): I10 - Essential (primary) hypertension (5) Obesity Current Visit: Yes Status: Chronic Daily standing scale weights only Standing scale weight 08/02/18 158.8 kg weight loss encouraged once acute episode is complete Qualifiers: Obesity type: due to excess calories Obesity classification: adult class 3 (BMI >= 40) Serious obesity comorbidity presence: with serious comorbidity Body mass index: BMI 45.0-49.9 Qualified Code(s): E66.01 - Morbid (severe) obesity due to excess calories; Z68.42 - Body mass index (BMI) 45.0-49.9, adult (6) Anxiety Current Visit: Yes Status: Acute IV lorazepam PRN Subjective Patient reports: no new complaints, pain is less, tolerating liquids well, voiding w/o difficulty (per lópez), no flatus, no bowel movement (bowel sweat oted), afebrile Objective Vital Signs - Last 8 Hours Temp Pulse Resp BP Pulse Ox 08/05/18 11:48 98.0 F 86 18 155/95 91 08/05/18 07:05 97.9 F 81 18 132/90 95 Intake and Output 08/04/18 08/05/18 08/05/18 23:59 07:59 15:59 Intake Total 1860 / 1860 1250 / 1250 2069 Output Total 1620 / 1620 0 / 0 Balance 1860 / 1860 -370 / -370 2069 Intake: IV Fluids 1500 / 1500 450 / 450 700 / 700 0.9 % Sodium Chloride 1,000 ML 1000 / 1000 @ 50 mls/hr IVC .Q20H [facility] Rx#: [id number] Ofirmev 1,000 mg/100 ml 1,000 100 / 100 100 / 100 100 / 100 mg In 100 ml @ 400 mls/hr IVPB Q6H [facility] Rx#:[id number] Intralipid 20% 250 ML @ 21 mls/ 250 / 250 hr IVPB DAILY@1700 [facility] Rx#: [id number] Diflucan Premix 400 MG/200 ML 200 / 200 400 mg In 200 ml @ 200 mls/hr IVPB DAILY [facility] Rx#:[id number] Zyvox Premix 600mg/300mL 600 mg 300 / 300 300 / 300 In 300 ml @ 150 mls/hr IVPB Q12HR [facility] Rx#:[id number] Zosyn 3.375 GM In 0.9 % Sodium 100 / 100 100 / 100 100 / 100 Chloride (Mini-Bag +) 100 ML @ 25 mls/hr IVPB Q8H [facility] Rx#: [id number] Oral 360 / 360 800 / 800 1370 / 1370 Output: Catheter 1600 / 1600 Wound Drainage 20 / 20 0 / 0 Left Abdomen 0 / 0 Other: Meal clears Percent of Meal Consumed 0% Blood Glucose* 169 155 107 - General physical appearance well nourished, no distress, obese - Eyes normal ocular movement - ENT normal nares, normal mucosa, atraumatic, normocephalic - Neck Neck exam: trachea midline - Respiratory normal expansion, normal respiratory effort, clear to auscultation - Cardiovascular Cardiovascular exam: Present: RRR, distant heart sounds - Abdomen Abdomen: Present: bowel sounds present, soft, tender (expected postoperative tenderness) Hernia: none - Incision Incision: Present: clean and dry, intact (with packing) - Integumentary no rash - Neurologic normal coordination, normal sensation - Musculoskeletal normal posture - Psychiatric oriented to time, oriented to person, oriented to place, speech is normal, memory intact - Labs 08/05/18 03:50 08/05/18 03:50 Diabetes panel 08/05/18 08/05/18 Range/Units 03:50 10:49 Sodium 138 (136-145) mEq/L Potassium 3.8 (3.5-5.1) mEq/L Chloride 103 (98-107) mEq/L Carbon Dioxide 28 (23-29) mEq/L BUN 19 (6-20) mg/dL Creatinine 0.88 (0.70-1.30) mg/dL Glucose 140 H (70-105) mg/dL Calcium 8.4 L (8.6-10.3) mg/dL AST 45 H (13-39) Units/L ALT 37 (7-52) Units/L Alkaline Phosphatase 54 (34-104) Units/L Albumin 2.8 L (3.5-5.7) g/dL Calcium panel 08/05/18 08/05/18 Range/Units 03:50 10:49 Calcium 8.4 L (8.6-10.3) mg/dL Phosphorus 3.7 (2.7-4.5) mg/dL Albumin 2.8 L (3.5-5.7) g/dL Pituitary panel 08/05/18 Range/Units 03:50 Sodium 138 (136-145) mEq/L Potassium 3.8 (3.5-5.1) mEq/L Chloride 103 (98-107) mEq/L Carbon Dioxide 28 (23-29) mEq/L BUN 19 (6-20) mg/dL Creatinine 0.88 (0.70-1.30) mg/dL Glucose 140 H (70-105) mg/dL Calcium 8.4 L (8.6-10.3) mg/dL Adrenal panel 08/05/18 08/05/18 Range/Units 03:50 10:49 Sodium 138 (136-145) mEq/L Potassium 3.8 (3.5-5.1) mEq/L Chloride 103 (98-107) mEq/L Carbon Dioxide 28 (23-29) mEq/L BUN 19 (6-20) mg/dL Creatinine 0.88 (0.70-1.30) mg/dL Glucose 140 H (70-105) mg/dL Calcium 8.4 L (8.6-10.3) mg/dL Total Bilirubin 0.3 (0.3-1.0) mg/dL AST 45 H (13-39) Units/L ALT 37 (7-52) Units/L Alkaline Phosphatase 54 (34-104) Units/L Albumin 2.8 L (3.5-5.7) g/dL Consult Discharge Plan - Plan Referrals: Demi Rogers, HOME HELP AIDE [Primary Care Provider] - <Tamiko Louis - Last Filed: 08/05/18 16:43> Date of Encounter: 08/05/18 Time of Encounter: 12:50 - Assessment and Plan (1) Perforation of sigmoid colon due to diverticulitis Current Visit: Yes Status: 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 - pain well controlled adv diet to fulls continue TPN stop NS IVF continue OOB to chair/ambulate with assistance daily dressing changes to midline begin colostomy care teaching, will need home care upon DC gi/dvt prophylaxis trend labs cultures returned - will consult ID for antibiotic management (2) HTN (hypertension) Current Visit: Yes Status: Chronic controlled continue home meds Qualifiers: Hypertension type: essential hypertension Qualified Code(s): I10 - Essential (primary) hypertension (3) Obesity Current Visit: Yes Status: Chronic Qualifiers: Obesity type: due to excess calories Obesity classification: adult class 3 (BMI >= 40) Serious obesity comorbidity presence: with serious comorbidity Body mass index: BMI 45.0-49.9 Qualified Code(s): E66.01 - Morbid (severe) obesity due to excess calories; Z68.42 - Body mass index (BMI) 45.0-49.9, adult (4) Leukocytosis Current Visit: Yes Status: Acute continued elevation cultures resulted consult to ID for abx management trend Qualifiers: Leukocytosis type: unspecified Qualified Code(s): D72.829 - Elevated white blood cell count, unspecified Subjective Patient reports: no new complaints, feels better, still having pain, pain is less, tolerating liquids well, voiding w/o difficulty (lópez), no flatus, no bowel movement, afebrile Narrative: no nausea Objective Vital Signs - Last 8 Hours Temp Pulse Resp BP Pulse Ox 08/05/18 15:36 153/94 08/05/18 14:53 98.2 F 97 18 95 08/05/18 11:48 98.0 F 86 18 155/95 91 Intake and Output 08/05/18 08/05/18 08/05/18 07:59 15:59 23:59 Intake Total 1250 / 1250 3650 / 3650 Output Total 1620 / 1620 2168 / 2168 Balance -370 / -370 1482 / 1482 Intake: IV Fluids 450 / 450 1920 / 1920 0.9 % Sodium Chloride 1,000 ML 1000 / 1000 @ 50 mls/hr IVC .Q20H [facility] Rx#: [id number] Rocephin 2,000 MG In Water for 20 / 20 inj. (sterile) 20 ML @ 600 mls/ hr IVP Q24H [facility] Rx#:[id number] Ofirmev 1,000 mg/100 ml 1,000 100 / 100 200 / 200 mg In 100 ml @ 400 mls/hr IVPB Q6H [facility] Rx#:[id number] Cubicin 650 MG In 0.9 % Sodium 100 / 100 Chloride 100 ML @ 200 mls/hr IVPB Q24H [facility] Rx#:[id number] Intralipid 20% 250 ML @ 21 mls/ 250 / 250 hr IVPB DAILY@1700 [facility] Rx#: [id number] Diflucan Premix 400 MG/200 ML 200 / 200 400 mg In 200 ml @ 200 mls/hr IVPB DAILY [facility] Rx#:[id number] Zyvox Premix 600mg/300mL 600 mg 300 / 300 In 300 ml @ 150 mls/hr IVPB Q12HR [facility] Rx#:[id number] Zosyn 3.375 GM In 0.9 % Sodium 100 / 100 100 / 100 Chloride (Mini-Bag +) 100 ML @ 25 mls/hr IVPB Q8H [facility] Rx#: [id number] Oral 800 / 800 1730 / 1730 Output: Catheter 1600 / 1600 2150 / 2150 Urethral (López) 1150 / 1150 Wound Drainage Left Abdomen Other: Blood Glucose* 155 107 118 - General physical appearance well developed, well nourished, no distress, moderate pain, obese - Eyes PERRL, normal ocular movement - ENT normal mucosa, normocephalic - Neck Neck exam: trachea midline - Respiratory normal expansion, clear to auscultation - Cardiovascular Cardiovascular exam: Present: RRR - Abdomen Abdomen: Present: soft, tender. Absent: guarding, rebound - Incision Incision: Present: clean and dry, intact (packing midline, serous drainage) - Genitourinary other (lópez in place) - Integumentary no rash - Neurologic normal sensation - Musculoskeletal normal posture - Psychiatric oriented to time, oriented to person, oriented to place, speech is normal, memory intact - Labs 08/05/18 03:50 08/05/18 03:50 Diabetes panel 08/05/18 08/05/18 Range/Units 03:50 10:49 Sodium 138 (136-145) mEq/L Potassium 3.8 (3.5-5.1) mEq/L Chloride 103 (98-107) mEq/L Carbon Dioxide 28 (23-29) mEq/L BUN 19 (6-20) mg/dL Creatinine 0.88 (0.70-1.30) mg/dL Glucose 140 H (70-105) mg/dL Calcium 8.4 L (8.6-10.3) mg/dL AST 45 H (13-39) Units/L ALT 37 (7-52) Units/L Alkaline Phosphatase 54 (34-104) Units/L Albumin 2.8 L (3.5-5.7) g/dL Calcium panel 08/05/18 08/05/18 Range/Units 03:50 10:49 Calcium 8.4 L (8.6-10.3) mg/dL Phosphorus 3.7 (2.7-4.5) mg/dL Albumin 2.8 L (3.5-5.7) g/dL Pituitary panel 08/05/18 Range/Units 03:50 Sodium 138 (136-145) mEq/L Potassium 3.8 (3.5-5.1) mEq/L Chloride 103 (98-107) mEq/L Carbon Dioxide 28 (23-29) mEq/L BUN 19 (6-20) mg/dL Creatinine 0.88 (0.70-1.30) mg/dL Glucose 140 H (70-105) mg/dL Calcium 8.4 L (8.6-10.3) mg/dL Adrenal panel 08/05/18 08/05/18 Range/Units 03:50 10:49 Sodium 138 (136-145) mEq/L Potassium 3.8 (3.5-5.1) mEq/L Chloride 103 (98-107) mEq/L Carbon Dioxide 28 (23-29) mEq/L BUN 19 (6-20) mg/dL Creatinine 0.88 (0.70-1.30) mg/dL Glucose 140 H (70-105) mg/dL Calcium 8.4 L (8.6-10.3) mg/dL Total Bilirubin 0.3 (0.3-1.0) mg/dL AST 45 H (13-39) Units/L ALT 37 (7-52) Units/L Alkaline Phosphatase 54 (34-104) Units/L Albumin 2.8 L (3.5-5.7) g/dL - Attending Attestation I have personally performed a face to face evaluation on this patient. I have reviewed and agree with the care plan. History and Exam by me shows:
[2018-08-05] MEDS ORDERED: Furosemide 40 MG/4 ML VIAL IVP ONE (14:17)
[2018-08-05] MEDS: cefTRIAXone 2,000 MG in Water for inj. (sterile) 20 ML 20 ML IVP SCH (14:54)
[2018-08-05] MEDS: 0.9 % Sodium Chloride 1,000 ML IVC SCH (14:55)
[2018-08-05] MEDS: metroNIDAZOLE 500 MG TABLET PO SCH ×2 (14:56→20:48)
[2018-08-05] MEDS: DAPTOmycin 650 MG in 0.9 % Sodium Chloride 100 ML IVPB SCH (15:08)
[2018-08-05] MEDS: *HR* HYDROmorphone 20 MG/20 ML PCA IVC PRN (16:55)
[2018-08-05] MEDS ORDERED: Clinimix E 5%-15% SOLUTION 2,000 ML with MVI, adult with vitamin K 10 ML IVC SCH (17:00)
[2018-08-05] MEDS: cloNIDine HCl 0.1 MG TABLET PO SCH (20:49)
[2018-08-06] MEDS: Insulin LISPRO 300 UNITS/3 ML VIAL SQ SCH ×4 (00:49→13:47)
[2018-08-06] MEDS: Ipratropium/Albuterol Neb 3 ML IH SCH ×2 (04:12→09:51)
[2018-08-06] MEDS: Acetaminophen IV 1,000 MG/100 ML INFUS..BTL IVPB SCH ×3 (04:24→09:04)
[2018-08-06 04:59] LABS: Basophils # 0.1 K/mcL (0.0-0.2); Basophils % 0.4 %; Eosinophils # 0.4 K/mcL (0.0-0.6); Eosinophils % 2.6 %; Hemoglobin 10.1 g/dL (12.9-16.9); Lymphocytes # 2.4 K/mcL (0.6-4.6); Lymphocytes % 14.8 %; Mean Corpuscular HGB Conc 31.6 g/dL (31.6-35.5); Mean Corpuscular Hemoglobin 26.5 pg (28.0-33.3); Monocytes # 1.3 K/mcL (0.0-1.3); Monocytes % 8.4 %; Neutrophils # 10.9 K/mcL (1.6-8.9); Platelet Count 432 K/mcL (140-400); Red Blood Count 3.81 M/mcL (4.19-5.50); Red Cell Distribution Width 15.8 % (11.5-14.5); Segmented Neutrophils % 68.8 %
[2018-08-06 05:18] LABS: BUN/Creatinine Ratio 23 (6-26); Blood Urea Nitrogen 17 mg/dL (6-20); Calcium 8.2 mg/dL (8.6-10.3); Carbon Dioxide 30 mEq/L (23-29); Chloride 101 mEq/L (98-107); Glucose 116 mg/dL (70-105); Magnesium 1.7 mg/dL (1.6-2.6); Osmolality,Calculated 291 (280-300); Phosphorous 3.9 mg/dL (2.7-4.5); Potassium 3.2 mEq/L (3.5-5.1); Sodium 139 mEq/L (136-145); eGFR For Non-African Americans > 60 (> 60)
[2018-08-06] MEDS: Pantoprazole 40 MG VIAL IVP SCH (06:09)
[2018-08-06] MEDS: *HR* Heparin 5,000 UNIT/ML VIAL SQ SCH ×3 (06:09→20:57)
[2018-08-06] MEDS: cloNIDine HCl 0.1 MG TABLET PO SCH ×2 (07:32→20:56)
[2018-08-06] MEDS: metroNIDAZOLE 500 MG TABLET PO SCH ×3 (09:05→20:57)
[2018-08-06] MEDS: Fluconazole 400 MG/200 ML 400 MG/200 ML BAG IVPB SCH (09:06)
[2018-08-06 09:12] LABS: Creatine Kinase 969 Units/L (30-223)
--- NOTE | 2018-08-06 10:30 | General Surgery Progress Note ---
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 for pain control regular diet stop TPN after this bag runs out SLIV continue OOB to chair/ambulate with assistance daily dressing changes to midline begin colostomy care teaching, will need home care upon DC, flatus in ostomy appliance today gi/dvt prophylaxis trend labs - wbc decrease cultures returned - ID antibiotic management (2) HTN (hypertension) Current Visit: Yes Status: Chronic controlled continue home meds Qualifiers: Hypertension type: essential hypertension Qualified Code(s): I10 - Essential (primary) hypertension (3) Obesity Current Visit: Yes Status: Chronic Qualifiers: Obesity type: due to excess calories Obesity classification: adult class 3 (BMI >= 40) Serious obesity comorbidity presence: with serious comorbidity Body mass index: BMI 45.0-49.9 Qualified Code(s): E66.01 - Morbid (severe) obesity due to excess calories; Z68.42 - Body mass index (BMI) 45.0-49.9, adult (4) Leukocytosis Current Visit: Yes Status: Acute improved ID to manage abx - appreciate input trend Qualifiers: Leukocytosis type: unspecified Qualified Code(s): D72.829 - Elevated white blood cell count, unspecified (5) Hypokalemia Current Visit: Yes Status: Acute replace po Subjective Patient reports: no new complaints, feels better, still having pain, pain is less, tolerating liquids well, voiding w/o difficulty (lópez in place), flatus, no bowel movement, afebrile Objective Vital Signs - Last 8 Hours Temp Pulse Resp BP Pulse Ox 08/06/18 09:52 16 96 08/06/18 09:42 96 08/06/18 07:16 98.5 F 85 16 142/94 96 08/06/18 04:33 98.4 F 84 18 165/97 96 08/06/18 04:13 20 96 Intake and Output 08/05/18 08/06/18 08/06/18 23:59 07:59 15:59 Intake Total 3275 / 3275 220 / 220 Output Total 2715 / 2715 1723 / 1723 0 / 0 Balance 560 / 560 -1503 / -1503 0 / 0 Intake: IV Fluids 2034 100 / 100 Clinimix E 5%-15% SOLUTION , 1934 000 ML @ 83.3 mls/hr IVC .Q24H [facility] with M.v.i. Adult 10 ml Rx# :[id number] Ofirmev 1,000 mg/100 ml 1,000 100 / 100 100 / 100 mg In 100 ml @ 400 mls/hr IVPB Q6H [facility] Rx#:[id number] Oral 1240 / 1240 120 / 120 Output: Stool Catheter 2700 / 2700 1700 / 1700 Wound Drainage 0 / 0 Left Abdomen 0 / 0 Other: Meal Dinner Weight 160.4 kg Blood Glucose* 158 120 Patient Weight 08/06/18 23:59 Weight 160.4 kg - General physical appearance well developed, well nourished, no distress - Eyes PERRL, normal ocular movement - ENT normal mucosa - Neck Neck exam: trachea midline - Respiratory normal expansion, clear to auscultation - Cardiovascular Cardiovascular exam: Present: RRR - Abdomen Abdomen: Present: bowel sounds present, soft, tender (appropriate post op tenderness) - Incision Incision: Present: clean and dry, intact (packed at three places with serous drainage) - Integumentary no rash - Neurologic CN 2-12 grossly intact - Musculoskeletal normal posture - Psychiatric oriented to time, oriented to person, oriented to place, speech is normal, memory intact - Labs 08/06/18 04:00 08/06/18 04:00 Diabetes panel 08/05/18 08/06/18 Range/Units 10:49 04:00 Sodium 139 (136-145) mEq/L Potassium 3.2 L (3.5-5.1) mEq/L Chloride 101 (98-107) mEq/L Carbon Dioxide 30 H (23-29) mEq/L BUN 17 (6-20) mg/dL Creatinine 0.74 (0.70-1.30) mg/dL Glucose 116 H (70-105) mg/dL Calcium 8.2 L (8.6-10.3) mg/dL AST 45 H (13-39) Units/L ALT 37 (7-52) Units/L Alkaline Phosphatase 54 (34-104) Units/L Albumin 2.8 L (3.5-5.7) g/dL Calcium panel 08/05/18 08/06/18 Range/Units 10:49 04:00 Calcium 8.2 L (8.6-10.3) mg/dL Phosphorus 3.9 (2.7-4.5) mg/dL Albumin 2.8 L (3.5-5.7) g/dL Pituitary panel 08/06/18 Range/Units 04:00 Sodium 139 (136-145) mEq/L Potassium 3.2 L (3.5-5.1) mEq/L Chloride 101 (98-107) mEq/L Carbon Dioxide 30 H (23-29) mEq/L BUN 17 (6-20) mg/dL Creatinine 0.74 (0.70-1.30) mg/dL Glucose 116 H (70-105) mg/dL Calcium 8.2 L (8.6-10.3) mg/dL Adrenal panel 08/05/18 08/06/18 Range/Units 10:49 04:00 Sodium 139 (136-145) mEq/L Potassium 3.2 L (3.5-5.1) mEq/L Chloride 101 (98-107) mEq/L Carbon Dioxide 30 H (23-29) mEq/L BUN 17 (6-20) mg/dL Creatinine 0.74 (0.70-1.30) mg/dL Glucose 116 H (70-105) mg/dL Calcium 8.2 L (8.6-10.3) mg/dL Total Bilirubin 0.3 (0.3-1.0) mg/dL AST 45 H (13-39) Units/L ALT 37 (7-52) Units/L Alkaline Phosphatase 54 (34-104) Units/L Albumin 2.8 L (3.5-5.7) g/dL Consult Discharge Plan - Plan Referrals: Demi Rogers, SUPERVISING BROKER [Primary Care Provider] -
--- NOTE | 2018-08-06 11:13 | Infectious Disease Progress No ---
Date of Encounter: 08/06/18 Time of Encounter: 09:50 - Assessment and Plan (1) Sepsis Current Visit: Yes Status: Acute The patient had 3 sepsis criteria on admission. Likely secondary to perforated diverticulitis and intra-abdominal abscess. Improved. Fevers and tachycardia have resolved. White blood cell count is trending down. Blood cultures drawn 07/26/18 are no growth to date 2 sets. Repeat blood cultures drawn 08/05/18 are pending 2 sets. Clinically, the patient looks great. He does have a PICC line, but clinically does not appear infected. Amylase, lipase, and LFTs were normal. Recommendations: Await repeat blood cultures. Continue Rocephin 2 grams IV daily. Continue daptomycin 4mg/kg IV daily. Baseline CK level elevated, but could be due to recent surgery. Will re-check Thursday. Monitor closely for myalgias and changes in renal function. Continue flagyl 500mg PO TID. Continue fluconazole 400 mg IV daily. Duration of treatment depends on the clinical picture. Monitor renal function and dose adjust antibiotics. Qualifiers: Sepsis type: sepsis due to unspecified organism Qualified Code(s): A41.9 - Sepsis, unspecified organism (2) Intra-abdominal abscess Current Visit: Yes Status: Acute Location: Right lower quadrant. Causative organism: Klebsiella pneumoniae, Escherichia coli, VRE, and Bacteroides 2. Jose R to perforated diverticulitis. CT of the abdomen and pelvis 07/29/18 showed a 6 cm abscess to the right lower quadrant with additional fluid pockets to the right lower and left lower quadrants. Status post drain placement 07/29/18 by interventional radiology. Approximate 40 mls of purulent drainage removed from the abdomen and sent for culture. Repeat CT 08/01/18 showed resolution of the abscess, but did show small persistent leak of the sigmoid colon. Gen. surgery following. Status post exploratory laparotomy with Silvia procedure, takedown of the splenic flexure, and appendectomy 08/03/[address] Louis. No additional cultures were obtained. Currently on Rocephin, fluconazole, and daptomycin, and flagyl. (3) Perforation of sigmoid colon due to diverticulitis Current Visit: Yes Status: Acute CT the abdomen and pelvis 07/26/18 showed findings consistent with perforated sigmoid diverticulitis and scattered foci of intraperitoneal air throughout the abdomen. Gen. surgery following. Opted initially to pursue conservative treatment, but the patient had persistent sepsis-like picture a repeat CT showed a persistent leak, so the patient was taken to the operating room 08/03/18 for expiratory laparotomy with Silvia procedure, takedown splenic flexure, and appendectomy by Dr. Louis. (4) Shortness of breath Current Visit: Yes Status: Resolved CXR 08/02/18 showed persistent bibasilar infiltrates concerning for atelectasis vs. PNA. Resolved. Supportive care per the primary team. (5) HTN (hypertension) Current Visit: Yes Status: Chronic Qualifiers: Hypertension type: essential hypertension Qualified Code(s): I10 - Essential (primary) hypertension (6) Obesity Current Visit: Yes Status: Chronic Qualifiers: Obesity type: due to excess calories Obesity classification: adult class 3 (BMI >= 40) Serious obesity comorbidity presence: with serious comorbidity Body mass index: BMI 45.0-49.9 Qualified Code(s): E66.01 - Morbid (severe) obesity due to excess calories; Z68.42 - Body mass index (BMI) 45.0-49.9, adult - Subjective Interval history: Patient seen and examined. No acute events noted overnight. Patient states overall he feels well. He reports mild pain at surgical site with movement. Denies any chest pain or shortness of breath or cough. Denies nausea, vomiting, or intra-abdominal pain. He states he feels great. He denies any fevers or chills or rigors. He states his appetite is good and has not been advanced to a regular diet. Aguilar catheter was removed this morning and the patient has not voided. He denies any back, joint, or extremity pain at this time. Infect Dis PN-Objective Data - Labs CBC & Chem 7: 08/06/18 04:00 08/06/18 04:00 Labs: Laboratory Results - last 24 hr 08/04/18 08/04/18 08/04/18 08:38 11:31 16:53 WBC RBC Hgb Hct MCV MCH MCHC RDW Plt Count MPV Immature Gran % Seg Neutrophils % Lymphocytes % Monocytes % Eosinophils % Basophils % Neutrophils # Lymphocytes # Monocytes # Eosinophils # Basophils # Sodium Potassium Chloride Carbon Dioxide BUN Creatinine Est GFR ( Amer) Est GFR (Non-Af Amer) BUN/Creatinine Ratio Glucose POC Glucose 168 H 132 H 141 H Calculated Osmolality Calcium Phosphorus Magnesium Total Bilirubin Direct Bilirubin Indirect Bilirubin AST ALT Alkaline Phosphatase Creatine Kinase Serum Total Protein Albumin Globulin Albumin/Globulin Ratio Amylase Lipase 08/05/18 08/05/18 08/05/18 00:43 03:41 10:49 WBC RBC Hgb Hct MCV MCH MCHC RDW Plt Count MPV Immature Gran % Seg Neutrophils % Lymphocytes % Monocytes % Eosinophils % Basophils % Neutrophils # Lymphocytes # Monocytes # Eosinophils # Basophils # Sodium Potassium Chloride Carbon Dioxide BUN Creatinine Est GFR ( Amer) Est GFR (Non-Af Amer) BUN/Creatinine Ratio Glucose POC Glucose 188 H 138 H Calculated Osmolality Calcium Phosphorus Magnesium Total Bilirubin 0.3 Direct Bilirubin 0.0 Indirect Bilirubin 0.3 AST 45 H ALT 37 Alkaline Phosphatase 54 Creatine Kinase Serum Total Protein 6.1 L Albumin 2.8 L Globulin 3.3 Albumin/Globulin Ratio 0.8 L Amylase 44 Lipase 63 08/06/18 08/06/18 04:00 04:00 WBC 15.9 H RBC 3.81 L Hgb 10.1 L Hct 32.0 L MCV 84.0 MCH 26.5 L MCHC 31.6 RDW 15.8 H Plt Count 432 H MPV 9.0 L Immature Gran % 5.0 H Seg Neutrophils % 68.8 Lymphocytes % 14.8 Monocytes % 8.4 Eosinophils % 2.6 Basophils % 0.4 Neutrophils # 10.9 H Lymphocytes # 2.4 Monocytes # 1.3 Eosinophils # 0.4 Basophils # 0.1 Sodium 139 Potassium 3.2 L Chloride 101 Carbon Dioxide 30 H BUN 17 Creatinine 0.74 Est GFR ( Amer) > 60 Est GFR (Non-Af Amer) > 60 BUN/Creatinine Ratio 23 Glucose 116 H POC Glucose Calculated Osmolality 291 Calcium 8.2 L Phosphorus 3.9 Magnesium 1.7 Total Bilirubin Direct Bilirubin Indirect Bilirubin AST ALT Alkaline Phosphatase Creatine Kinase 969 H Serum Total Protein Albumin Globulin Albumin/Globulin Ratio Amylase Lipase Cultures: Cultures 07/29/18 14:00 Body Fluid Culture - Preliminary Other-Specify in Comments Klebsiella pneu.ssp pneumoniae Escherichia coli Vancomycin Resistant Enterococcus faecium 08/05/18 10:57 Blood Culture - Preliminary Peripheral Venipuncture Culture is incubating and being continuously monitored for growth. Final report to follow. 08/05/18 10:49 Blood Culture - Preliminary Peripheral Venipuncture Culture is incubating and being continuously monitored for growth. Final report to follow. 07/29/18 14:00 Anaerobic Culture - Final Aspirate Bacteroides thetaiotaomicron#2 Bacteroides thetaiotaomicron 07/26/18 22:48 Blood Culture - Final Peripheral Venipuncture No growth. Final report. 07/26/18 23:24 Blood Culture - Final Peripheral Venipuncture No growth. Final report. Serology 07/26/18 Range/Units 18:09 Urine Color Yellow (Yellow) Urine Clarity Clear (Clear) Urine pH 5.5 (5.0-8.0) pH Units Ur Specific [place] 1.022 (1.010-1.025) Urine Protein Negative (Neg-Trace) mg/dL Urine Glucose (UA) Normal (Normal) mg/dL Urine Ketones Negative (Negative) mg/dL Urine Blood Negative (Negative) Urine Nitrite Negative (Negative) Urine Bilirubin Negative (Negative) Urine Urobilinogen Normal (Normal) mg/dL Ur Leukocyte Esterase Negative (Negative) Ur Culture Indicated? NO (NO) Exam - Constitutional Vitals: Temp Pulse Resp BP Pulse Ox 98.5 F 85 16 142/94 96 08/06/18 07:16 08/06/18 07:16 08/06/18 09:52 08/06/18 07:16 08/06/18 09:52 General appearance: cooperative, morbidly obese, no acute distress - Head Head exam: Present: atraumatic, normal inspection, normocephalic - Eye Eye exam: Present: EOMI, normal appearance, PERRL Pupils: Present: normal accommodation - ENT ENT exam: Present: mucous membranes moist - Neck Neck exam: Present: normal inspection - Respiratory Respiratory exam: Present: CTAB. Absent: rales, respiratory distress, rhonchi, wheezes - Cardiovascular Cardiovascular exam: Present: RRR, +S1, +S2 - GI/Abdominal GI/Abdominal exam: Present: distended (Obese), normal bowel sounds, soft. Absent: tenderness Additional comments: Midline abdominal dressing clean, dry, and intact. Colostomy noted to the left abdomen with small amount of serous drainage noted and gas. LETICIA drain noted to the left abdomen with serosanguineous drainage. - Extremities Exam Extremities exam: Present: normal inspection. Absent: joint swelling, pedal edema, tenderness - Neurological Exam Neurological exam: Present: alert, oriented X3, no focal deficits - Psychiatric Psychiatric exam: Present: normal affect, normal mood - Skin Skin exam: Present: dry, intact, normal color, warm Consult Discharge Plan - Plan Referrals: Demi Rogers, MIKAYLA [Primary Care Provider] - - Attending Attestation I have personally performed a face to face evaluation on this patient. I have reviewed and agree with the care plan. History and Exam by me shows: Assessment and plan: 1.sepsis 2.intra-abdominal abscess 3.perforation of sigmoid colon due to diverticulitis status post Silvia procedure, takedown splenic flexure and appendectomy 08/03/2018 4.Morbid obesity BMI 47 Recommendations Recommendations: Await repeat blood cultures. Continue Rocephin 2 grams IV daily. Continue daptomycin 4mg/kg IV daily. Baseline CK level elevated, but could be due to recent surgery. Will re-check Thursday. Monitor closely for myalgias and changes in renal function. Continue flagyl 500mg PO TID. Continue fluconazole 400 mg IV daily. consider swithcing to oral fluconazole soon Duration of treatment depends on the clinical picture. Monitor renal function and dose adjust antibiotics.
[2018-08-06] MEDS: *HR* OxyCODONE/APAP 7.5/325 TABLET PO PRN ×3 (13:51→23:32)
[2018-08-06] MEDS: DAPTOmycin 650 MG in 0.9 % Sodium Chloride 100 ML IVPB SCH (13:52)
[2018-08-06] MEDS: cefTRIAXone 2,000 MG in Water for inj. (sterile) 20 ML 20 ML IVP SCH (13:52)
[2018-08-07 03:57] LABS: Hematocrit 33.4 % (37.5-50.1); Hemoglobin 10.5 g/dL (12.9-16.9); Mean Corpuscular HGB Conc 31.4 g/dL (31.6-35.5); Mean Corpuscular Hemoglobin 26.1 pg (28.0-33.3); Mean Corpuscular Volume 82.9 fL (83.0-100.0); Mean Platelet Volume 8.9 fL (9.4-12.4); Platelet Count 488 K/mcL (140-400); Red Blood Count 4.03 M/mcL (4.19-5.50); Red Cell Distribution Width 15.9 % (11.5-14.5)
[2018-08-07 04:16] LABS: BUN/Creatinine Ratio 18 (6-26); Blood Urea Nitrogen 16 mg/dL (6-20); Calcium 8.3 mg/dL (8.6-10.3); Carbon Dioxide 30 mEq/L (23-29); Chloride 102 mEq/L (98-107); Glucose 100 mg/dL (70-105); Osmolality,Calculated 291 (280-300); Potassium 3.5 mEq/L (3.5-5.1); Sodium 140 mEq/L (136-145); eGFR For Non-African Americans > 60 (> 60)
[2018-08-07 04:21] LABS: Eosinophils # 0.3 K/mcL (0.0-0.6); Lymphocytes # 3.1 K/mcL (0.6-4.6); Monocytes # 1.4 K/mcL (0.0-1.3); Neutrophils # 12.3 K/mcL (1.6-8.9)
[2018-08-07] MEDS: *HR* Heparin 5,000 UNIT/ML VIAL SQ SCH ×3 (05:51→21:43)
[2018-08-07] MEDS: metroNIDAZOLE 500 MG TABLET PO SCH ×3 (08:14→21:42)
[2018-08-07] MEDS: Fluconazole 400 MG/200 ML 400 MG/200 ML BAG IVPB SCH (08:14)
[2018-08-07] MEDS: *HR* OxyCODONE/APAP 7.5/325 TABLET PO PRN ×3 (08:15→21:42)
--- NOTE | 2018-08-07 09:51 | General Surgery Progress Note ---
Date of Encounter: 08/07/18 Time of Encounter: 09:00 - Assessment and Plan (1) Intra-abdominal abscess Current Visit: Yes Status: Acute s/p Silvia's. IV abx with Daptomycin, ceftriaxone, flagyl and diflucan. ID participating in care. (2) Leukocytosis Current Visit: Yes Status: Acute Leukocytosis is elevated to 17.1. Continue IV abx as above Qualifiers: Leukocytosis type: unspecified Qualified Code(s): D72.829 - Elevated white blood cell count, unspecified (3) Perforation of sigmoid colon due to diverticulitis Current Visit: Yes Status: Acute POD#4 Silvia's Procedure. Colostomy functioning well. Tolerating regular diet. Up in room. Recommned increase activity. Continue IV abx as above. Continue patient education for colostomy care and management. (4) HTN (hypertension) Current Visit: Yes Status: Chronic Qualifiers: Hypertension type: essential hypertension Qualified Code(s): I10 - Essential (primary) hypertension (5) Obesity Current Visit: Yes Status: Chronic Qualifiers: Obesity type: due to excess calories Obesity classification: adult class 3 (BMI >= 40) Serious obesity comorbidity presence: with serious comorbidity Body mass index: BMI 45.0-49.9 Qualified Code(s): E66.01 - Morbid (severe) obesity due to excess calories; Z68.42 - Body mass index (BMI) 45.0-49.9, adult Subjective Patient reports: no new complaints, feels better, pain is less, tolerating a regular diet, voiding w/o difficulty, flatus (in colostomy bag), bowel movement (in colostomy bag) Objective Vital Signs - Last 8 Hours Temp Pulse Resp BP Pulse Ox 08/07/18 06:36 98.4 F 93 18 144/94 94 08/07/18 03:56 98.5 F 96 15 145/91 93 Intake and Output 08/06/18 08/07/18 08/07/18 23:59 07:59 15:59 Intake Total 400 / 400 0 / 0 Output Total 1250 / 1250 420 / 420 Balance -850 / -850 -420 / -420 Intake: Oral 400 / 400 0 / 0 Output: Urine 1250 / 1250 0 / 0 Stool 400 / 400 Wound Drainage 0 / 0 20 / 20 Left Abdomen 0 / 0 20 / 20 Other: Meal Dinner Percent of Meal Consumed 75% Stool Consistency loose Stool Color Brown # Voids 1 Weight 156.659 kg Blood Glucose* 108 100 Patient Weight 08/07/18 23:59 Weight 156.659 kg - Eyes PERRL, normal ocular movement - ENT no congestion - Respiratory clear to auscultation - Cardiovascular Cardiovascular exam: Present: RRR - Abdomen Abdomen: Present: bowel sounds present, soft, non tender Additional Comments: Colostomy is functioning well with gas and stool in bag. - Incision Incision: Present: open (intermittently with packing with serosanguinous drainage) - Labs 08/07/18 03:46 08/07/18 03:46 Diabetes panel 08/07/18 Range/Units 03:46 Sodium 140 (136-145) mEq/L Potassium 3.5 (3.5-5.1) mEq/L Chloride 102 (98-107) mEq/L Carbon Dioxide 30 H (23-29) mEq/L BUN 16 (6-20) mg/dL Creatinine 0.87 (0.70-1.30) mg/dL Glucose 100 (70-105) mg/dL Calcium 8.3 L (8.6-10.3) mg/dL Calcium panel 08/07/18 Range/Units 03:46 Calcium 8.3 L (8.6-10.3) mg/dL Pituitary panel 08/07/18 Range/Units 03:46 Sodium 140 (136-145) mEq/L Potassium 3.5 (3.5-5.1) mEq/L Chloride 102 (98-107) mEq/L Carbon Dioxide 30 H (23-29) mEq/L BUN 16 (6-20) mg/dL Creatinine 0.87 (0.70-1.30) mg/dL Glucose 100 (70-105) mg/dL Calcium 8.3 L (8.6-10.3) mg/dL Adrenal panel 08/07/18 Range/Units 03:46 Sodium 140 (136-145) mEq/L Potassium 3.5 (3.5-5.1) mEq/L Chloride 102 (98-107) mEq/L Carbon Dioxide 30 H (23-29) mEq/L BUN 16 (6-20) mg/dL Creatinine 0.87 (0.70-1.30) mg/dL Glucose 100 (70-105) mg/dL Calcium 8.3 L (8.6-10.3) mg/dL Consult Discharge Plan - Plan Referrals: Demi Rogers, MIKAYLA [Primary Care Provider] -
[2018-08-07] MEDS: cefTRIAXone 2,000 MG in Water for inj. (sterile) 20 ML 20 ML IVP SCH (15:02)
[2018-08-07] MEDS: DAPTOmycin 650 MG in 0.9 % Sodium Chloride 100 ML IVPB SCH (15:03)
[2018-08-07] MEDS: cloNIDine HCl 0.1 MG TABLET PO SCH (21:42)
[2018-08-08] MEDS: *HR* OxyCODONE/APAP 7.5/325 TABLET PO PRN ×4 (05:00→20:47)
[2018-08-08 05:16] LABS: Basophils # 0.1 K/mcL (0.0-0.2); Basophils % 0.5 %; Eosinophils # 0.6 K/mcL (0.0-0.6); Eosinophils % 3.6 %; Hematocrit 33.1 % (37.5-50.1); Hemoglobin 10.4 g/dL (12.9-16.9); Immature Granulocytes % 6.1 % (0-4); Lymphocytes # 1.9 K/mcL (0.6-4.6); Lymphocytes % 11.3 %; Mean Corpuscular HGB Conc 31.4 g/dL (31.6-35.5); Mean Corpuscular Hemoglobin 26.1 pg (28.0-33.3); Mean Corpuscular Volume 83.2 fL (83.0-100.0); Monocytes # 1.1 K/mcL (0.0-1.3); Monocytes % 6.6 %; Platelet Count 478 K/mcL (140-400); Red Blood Count 3.98 M/mcL (4.19-5.50); Red Cell Distribution Width 15.8 % (11.5-14.5); Segmented Neutrophils % 71.9 %
[2018-08-08 05:25] LABS: Neutrophils # 12.2 K/mcL (1.6-8.9)
[2018-08-08 05:38] LABS: BUN/Creatinine Ratio 20 (6-26); Blood Urea Nitrogen 16 mg/dL (6-20); Calcium 8.4 mg/dL (8.6-10.3); Carbon Dioxide 30 mEq/L (23-29); Chloride 101 mEq/L (98-107); Glucose 107 mg/dL (70-105); Osmolality,Calculated 290 (280-300); Potassium 3.8 mEq/L (3.5-5.1); Sodium 139 mEq/L (136-145); eGFR For Non-African Americans > 60 (> 60)
[2018-08-08 06:02] LABS: Platelet Estimate Normal (Normal)
[2018-08-08] MEDS: *HR* Heparin 5,000 UNIT/ML VIAL SQ SCH ×3 (06:26→20:47)
[2018-08-08] MEDS: Fluconazole 400 MG/200 ML 400 MG/200 ML BAG IVPB SCH (09:30)
[2018-08-08] MEDS: metroNIDAZOLE 500 MG TABLET PO SCH ×3 (09:31→20:47)
--- NOTE | 2018-08-08 09:55 | General Surgery Progress Note ---
Date of Encounter: 08/08/18 Time of Encounter: 07:00 - Assessment and Plan (1) Intra-abdominal abscess Current Visit: Yes Status: Acute s/p Silvia's. IV abx with Daptomycin, ceftriaxone, flagyl and diflucan. ID participating in care. (2) Leukocytosis Current Visit: Yes Status: Acute Leukocytosis remains elevated at 16.9. Continue IV abx as above Qualifiers: Leukocytosis type: unspecified Qualified Code(s): D72.829 - Elevated white blood cell count, unspecified (3) Perforation of sigmoid colon due to diverticulitis Current Visit: Yes Status: Acute POD#4 Silvia's Procedure. Colostomy functioning well. Tolerating regular diet. Up in room. Recommned increase activity. Continue IV abx as above. Continue patient education for colostomy care and management. (4) HTN (hypertension) Current Visit: Yes Status: Chronic Qualifiers: Hypertension type: essential hypertension Qualified Code(s): I10 - Essential (primary) hypertension (5) Obesity Current Visit: Yes Status: Chronic Qualifiers: Obesity type: due to excess calories Obesity classification: adult class 3 (BMI >= 40) Serious obesity comorbidity presence: with serious comorbidity Body mass index: BMI 45.0-49.9 Qualified Code(s): E66.01 - Morbid (severe) obe sity due to excess calories; Z68.42 - Body mass index (BMI) 45.0-49.9, adult Subjective Patient reports: no new complaints, feels better, pain is less, tolerating a regular diet, flatus (in colostomy), bowel movement (in colostomy) Objective Vital Signs - Last 8 Hours Temp Pulse Resp BP Pulse Ox 08/08/18 07:08 97.9 F 71 18 159/101 93 08/08/18 03:30 98.2 F 86 18 149/85 96 Intake and Output 08/07/18 08/08/18 08/08/18 23:59 07:59 15:59 Intake Total 240 / 240 Output Total Balance 220 / 220 - Intake: Oral 240 / 240 Output: Stool 0 / 0 Wound Drainage Left Abdomen Other: Meal Dinner Percent of Meal Consumed 100% Stool Consistency loose Stool Color Brown # Voids 1 Weight 153.541 kg Blood Glucose* 96 104 Patient Weight 08/08/18 23:59 Weight 153.541 kg - General physical appearance no distress, no pain, obese - Eyes normal ocular movement - ENT no congestion - Respiratory clear to auscultation - Cardiovascular Cardiovascular exam: Present: RRR - Abdomen Abdomen: Present: bowel sounds present, soft Additional Comments: Well functioning colostomy - Incision Incision: Present: clean and dry (with area of packing, nil drainage today) - Neurologic CN 2-12 grossly intact - Psychiatric oriented to time, oriented to person, oriented to place - Labs 08/08/18 04:55 08/08/18 04:55 Diabetes panel 08/08/18 Range/Units 04:55 Sodium 139 (136-145) mEq/L Potassium 3.8 (3.5-5.1) mEq/L Chloride 101 (98-107) mEq/L Carbon Dioxide 30 H (23-29) mEq/L BUN 16 (6-20) mg/dL Creatinine 0.82 (0.70-1.30) mg/dL Glucose 107 H (70-105) mg/dL Calcium 8.4 L (8.6-10.3) mg/dL Calcium panel 08/08/18 Range/Units 04:55 Calcium 8.4 L (8.6-10.3) mg/dL Pituitary panel 08/08/18 Range/Units 04:55 Sodium 139 (136-145) mEq/L Potassium 3.8 (3.5-5.1) mEq/L Chloride 101 (98-107) mEq/L Carbon Dioxide 30 H (23-29) mEq/L BUN 16 (6-20) mg/dL Creatinine 0.82 (0.70-1.30) mg/dL Glucose 107 H (70-105) mg/dL Calcium 8.4 L (8.6-10.3) mg/dL Adrenal panel 08/08/18 Range/Units 04:55 Sodium 139 (136-145) mEq/L Potassium 3.8 (3.5-5.1) mEq/L Chloride 101 (98-107) mEq/L Carbon Dioxide 30 H (23-29) mEq/L BUN 16 (6-20) mg/dL Creatinine 0.82 (0.70-1.30) mg/dL Glucose 107 H (70-105) mg/dL Calcium 8.4 L (8.6-10.3) mg/dL Consult Discharge Plan - Plan Referrals: Demi Rogers, MIKAYLA [Primary Care Provider] -
[2018-08-08] MEDS: cefTRIAXone 2,000 MG in Water for inj. (sterile) 20 ML 20 ML IVP SCH (14:40)
[2018-08-08] MEDS: DAPTOmycin 650 MG in 0.9 % Sodium Chloride 100 ML IVPB SCH (14:41)
[2018-08-08] MEDS: cloNIDine HCl 0.1 MG TABLET PO SCH (20:47)
[2018-08-09] MEDS: *HR* OxyCODONE/APAP 7.5/325 TABLET PO PRN ×3 (03:48→14:26)
[2018-08-09 04:27] LABS: Basophils # 0.1 K/mcL (0.0-0.2); Basophils % 0.6 %; Eosinophils # 0.7 K/mcL (0.0-0.6); Eosinophils % 4.9 %; Hematocrit 34.2 % (37.5-50.1); Hemoglobin 10.8 g/dL (12.9-16.9); Immature Granulocytes % 4.4 % (0-4); Lymphocytes % 13.5 %; Mean Corpuscular HGB Conc 31.6 g/dL (31.6-35.5); Mean Corpuscular Hemoglobin 26.4 pg (28.0-33.3); Mean Corpuscular Volume 83.6 fL (83.0-100.0); Mean Platelet Volume 9.1 fL (9.4-12.4); Monocytes % 6.9 %; Neutrophils # 10.5 K/mcL (1.6-8.9); Platelet Count 521 K/mcL (140-400); Red Blood Count 4.09 M/mcL (4.19-5.50); Red Cell Distribution Width 15.9 % (11.5-14.5); Segmented Neutrophils % 69.7 %
[2018-08-09 04:37] LABS: BUN/Creatinine Ratio 18 (6-26); Blood Urea Nitrogen 16 mg/dL (6-20); Calcium 8.6 mg/dL (8.6-10.3); Carbon Dioxide 29 mEq/L (23-29); Chloride 101 mEq/L (98-107); Glucose 106 mg/dL (70-105); Osmolality,Calculated 288 (280-300); Potassium 4.1 mEq/L (3.5-5.1); Sodium 138 mEq/L (136-145); eGFR For Non-African Americans > 60 (> 60)
[2018-08-09] MEDS: *HR* Heparin 5,000 UNIT/ML VIAL SQ SCH (05:33)
[2018-08-09] MEDS: Fluconazole 400 MG/200 ML 400 MG/200 ML BAG IVPB SCH (08:07)
[2018-08-09] MEDS: metroNIDAZOLE 500 MG TABLET PO SCH (08:07)
--- NOTE | 2018-08-09 10:33 | Discharge Summary ---
<Griselda Wright - Last Filed: 08/09/18 13:19> Orders not resulted at time of discharge: Pending orders 07/29/18 14:00 Fungal Culture [MYC] Routine 08/05/18 10:57 Culture,Blood [BC] Stat Date of Encounter: 08/09/18 Time of Encounter: 13:21 - Discharge Diagnosis (1) Perforation of sigmoid colon due to diverticulitis Priority: Primary Status: Acute (2) Shortness of breath Priority: Secondary Status: Resolved (3) Wheezing Priority: Secondary Status: Resolved (4) HTN (hypertension) Priority: Secondary Status: Chronic Qualifiers: Hypertension type: essential hypertension Qualified Code(s): I10 - Essential (primary) hypertension (5) Obesity Priority: Secondary Status: Chronic Qualifiers: Obesity type: due to excess calories Obesity classification: adult class 3 (BMI >= 40) Serious obesity comorbidity presence: with serious comorbidity Body mass index: BMI 45.0-49.9 Qualified Code(s): E66.01 - Morbid (severe) obesity due to excess calories; Z68.42 - Body mass index (BMI) 45.0-49.9, adult (6) Anxiety Priority: Secondary Status: Resolved General Surgery Exam Initial Vital Signs Temp Pulse Resp BP Pulse Ox 98.3 F 91 16 162/94 94 07/26/18 15:51 07/26/18 15:51 07/26/18 15:51 07/26/18 15:51 07/26/18 15:51 - General physical appearance no distress, no pain, obese - ENT atraumatic, normocephalic - Respiratory normal expansion, normal respiratory effort - Cardiovascular Cardiovascular exam: Present: RRR, distant heart sounds - Abdomen Abdomen general surgery: Present: bowel sounds present, soft, tender (Expected postoperative), wound (Stoma is pink and moist, output per colostomy) Hernia: Present: none - Incision Incision: Present: intact (Overall intact. There are areas with packing.) - Integumentary Integumentary general surgery: Present: warm and dry - Neurologic Present: CN 2-12 grossly intact, normal coordination, normal sensation - Musculoskeletal Present: normal gait, normal posture - Psychiatric Psychiatric general surgery: Present: appropriate, oriented to person, oriented to place, oriented to time, speech is normal, memory intact - Hospital Course Hospital course: Mr. Liao is a 38 year old male who was admitted on 07/26/2018 for perforated diverticiulits. He failed conservative therapy and was taken to the operating room on 08/03/2017 where he underwent an exploratory laparotomy with Coello procedure, takedown splenic flexure, and incidental appendectomy. Infectious disease was consult did for recommendations regarding a VRE and perforated diverticulitis. The remainder of his hospital course has been uncomplicated. He is ambulating avoiding without difficulty, tolerating a diet without nausea or vomiting, vital signs are stable, and he is afebrile. He is having output per his colostomy and home healthcare has been set up for assistance with wound packing and ostomy care. He will be discharged on Augmentin, Zyvox, and Diflucan per infectious disease recommendations. We will begin d/c planning with a follow-up in approximately 2 weeks. 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 and as such his work release will be determined at follow-up visit - Time Spent with Patient Total time spent providing and/or coordinating discharge services: Greater than 30 minutes (HHC) - Discharge Medications Prescriptions: New RX: OxyCODONE/APAP 5/325 [Percocet 5/325 MG] 1 each PO Q6HR PRN 7 Days #28 tablet PRN Reason: Pain RX: Docusate [Colace] 100 mg PO BID 30 Days #30 capsule RX: Ibuprofen 800 mg PO Q8H PRN #30 tablet PRN Reason: Postsurgical pain RX: Omeprazole [PriLOSEC] 20 mg PO DAILY@0630 #30 capsule.dr RX: Polyethylene Glycol 3350 [MiraLAX] 17 gm PO DAILY #30 powd.pack Ondansetron ODT [Zofran ODT] 4 mg SL Q4HR PRN #15 tab.rapdis PRN Reason: Postsurgical nausea Amoxicillin/Clavulanate [Augmentin] 875 mg PO BIDWM 5 Days #10 tablet RX: Fluconazole [Diflucan] 400 mg PO DAILY 5 Days #10 tab Linezolid [Zyvox] 600 mg PO BID 5 Days #10 tablet Continue RX: Losartan Potassium [Cozaar] 100 mg PO DAILY RX: cloNIDine HCl [CloNIDine HCl] 0.1 mg PO HS PRN MDD >160/90 PRN Reason: Blood Pressure - High RX: Triamterene/HCTZ 37.5/25mg [Dyazide] 1 cap PO DAILY Discontinued Meloxicam 15 mg PO DAILY Home Medications: RX: Losartan Potassium [Cozaar] 100 mg PO DAILY 01/07/17 [History] RX: Triamterene/HCTZ 37.5/25mg [Dyazide] 1 cap PO DAILY 01/07/17 [History] RX: cloNIDine HCl [CloNIDine HCl] 0.1 mg PO HS PRN MDD >160/90 01/07/17 [History] Amoxicillin/Clavulanate [Augmentin] 875 mg PO BIDWM 5 Days #10 tablet 08/09/18 [Rx] Linezolid [Zyvox] 600 mg PO BID 5 Days #10 tablet 08/09/18 [Rx] Ondansetron ODT [Zofran ODT] 4 mg SL Q4HR PRN #15 tab.rapdis 08/09/18 [Rx] RX: Docusate [Colace] 100 mg PO BID 30 Days #30 capsule 08/09/18 [Rx] RX: Fluconazole [Diflucan] 400 mg PO DAILY 5 Days #10 tab 08/09/18 [Rx] RX: Ibuprofen 800 mg PO Q8H PRN #30 tablet 08/09/18 [Rx] RX: Omeprazole [PriLOSEC] 20 mg PO DAILY@0630 #30 capsule.dr 08/09/18 [Rx] RX: OxyCODONE/APAP 5/325 [Percocet 5/325 MG] 1 each PO Q6HR PRN 7 Days #28 tablet 08/09/18 [Rx] RX: Polyethylene Glycol 3350 [MiraLAX] 17 gm PO DAILY #30 powd.pack 08/09/18 [Rx] Allergies/Adverse Reactions: Allergy/AdvReac Type Severity Reaction Status Date / Time YANA Inhibitors AdvReac THROAT Verified 07/27/18 14:30 ITCH, COUGH codeine AdvReac Vomiting, Verified 07/27/18 14:30 STOMACH PROBLEMS Date of admission: 07/29/18 17:12 Primary care physician: Demi Rogers CNP Consults: 07/26/18 19:49 Consult to Surgery [CONS] Stat Consulting Provider: [facility] Reason for Consult: Perforated diverticulitis Call Completed: Yes 07/28/18 15:39 Consult to Nutrition [CONS] Routine Comment: Consulting Provider: NUTRITION Reason for Dietary Consult: Diet Education Other:: low residue diet after ticitis, high fiber in 8 weeks 07/29/18 11:33 Consult to Interventional Radiology [CONS] Stat Consulting Provider: Radiology Interventional Cols Reason for Consult: fluid collection RLQ and LLQ; perforated diverticulitis Time Notified: 11:33 Call Completed: Yes 08/02/18 08:08 Consult to Invasive Line Access Team [CONS] Routine Reason for Consult: needs TPN Line Type: PICC Consult to Nutrition [CONS] Routine Comment: TPN Consulting Provider: NUTRITION Reason for Dietary Consult: TPN Start and Manage 08/02/18 13:19 Consult to Respiratory Therapy [CONS] Stat Reason for Consult: aggressive pulm toileting, accapella, scheudled duonebs pt with bl wheezing, cxr with atalectasis vs PNA Time Notified: 13:20 Call Completed: Yes 08/02/18 14:53 Consult to Invasive Line Access Team [CONS] Routine Reason for Consult: Picc Line Insertion Line Type: PICC 08/03/18 21:07 Consult to Wound Care [CONS] Routine Reason for Consult: new colostomy Time Notified: 19:45 Call Completed: No 08/05/18 08:41 Consult to Infectious Diseases [CONS] Routine Consulting Provider: Infectious Disease [place] Reason for Consult: antibiotic management Time Notified: 08:41 Call Completed: Yes Discharging clinician: Tamiko Louis Anticipated date of discharge: 08/09/18 Labs on day of discharge: Labs from last 24 hours 08/09/18 08/09/18 08/09/18 04:00 04:00 04:00 WBC 15.0 H RBC 4.09 L Hgb 10.8 L Hct 34.2 L MCV 83.6 MCH 26.4 L MCHC 31.6 RDW 15.9 H Plt Count 521 H MPV 9.1 L Immature Gran % 4.4 H Seg Neutrophils % 69.7 Lymphocytes % 13.5 Monocytes % 6.9 Eosinophils % 4.9 Basophils % 0.6 Neutrophils # 10.5 H Lymphocytes # 2.0 Monocytes # 1.0 Eosinophils # 0.7 H Basophils # 0.1 Sodium 138 Potassium 4.1 Chloride 101 Carbon Dioxide 29 BUN 16 Creatinine 0.90 Est GFR ( Amer) > 60 Est GFR (Non-Af Amer) > 60 BUN/Creatinine Ratio 18 Glucose 106 H POC Glucose Calculated Osmolality 288 Calcium 8.6 Creatine Kinase 137 08/08/18 08/08/18 08/07/18 16:35 10:47 16:34 WBC RBC Hgb Hct MCV MCH MCHC RDW Plt Count MPV Immature Gran % Seg Neutrophils % Lymphocytes % Monocytes % Eosinophils % Basophils % Neutrophils # Lymphocytes # Monocytes # Eosinophils # Basophils # Sodium Potassium Chloride Carbon Dioxide BUN Creatinine Est GFR ( Amer) Est GFR (Non-Af Amer) BUN/Creatinine Ratio Glucose POC Glucose 104 H 113 H 96 Calculated Osmolality Calcium Creatine Kinase 08/07/18 08/07/18 08/07/18 10:56 06:35 04:00 WBC RBC Hgb Hct MCV MCH MCHC RDW Plt Count MPV Immature Gran % Seg Neutrophils % Lymphocytes % Monocytes % Eosinophils % Basophils % Neutrophils # Lymphocytes # Monocytes # Eosinophils # Basophils # Sodium Potassium Chloride Carbon Dioxide BUN Creatinine Est GFR ( Amer) Est GFR (Non-Af Amer) BUN/Creatinine Ratio Glucose POC Glucose 108 H 100 H 88 Calculated Osmolality Calcium Creatine Kinase 08/06/18 08/06/18 08/06/18 23:23 19:49 16:08 WBC RBC Hgb Hct MCV MCH MCHC RDW Plt Count MPV Immature Gran % Seg Neutrophils % Lymphocytes % Monocytes % Eosinophils % Basophils % Neutrophils # Lymphocytes # Monocytes # Eosinophils # Basophils # Sodium Potassium Chloride Carbon Dioxide BUN Creatinine Est GFR ( Amer) Est GFR (Non-Af Amer) BUN/Creatinine Ratio Glucose POC Glucose 108 H 127 H 110 H Calculated Osmolality Calcium Creatine Kinase 08/05/18 16:25 WBC RBC Hgb Hct MCV MCH MCHC RDW Plt Count MPV Immature Gran % Seg Neutrophils % Lymphocytes % Monocytes % Eosinophils % Basophils % Neutrophils # Lymphocytes # Monocytes # Eosinophils # Basophils # Sodium Potassium Chloride Carbon Dioxide BUN Creatinine Est GFR ( Amer) Est GFR (Non-Af Amer) BUN/Creatinine Ratio Glucose POC Glucose 118 H Calculated Osmolality Calcium Creatine Kinase Preliminary micro results at discharge 08/05/18 10:57 Blood Culture - Preliminary Peripheral Venipuncture Culture is incubating and being continuously monitored for growth. Final report to follow. 08/05/18 10:49 Blood Culture - Preliminary Peripheral Venipuncture Culture is incubating and being continuously monitored for growth. Final report to follow. - Impressions ITS Impressions Abdomen/Pelvis CT 07/26/18 17:25 IMPRESSION: Perforated sigmoid diverticulitis. Scattered foci of intraperitoneal air throughout the abdomen. Cholelithiasis. D/ / Rich Soria MD / Rich Soria MD Interpreting Provider: Rich Soria MD Needle Aspiration CT 07/29/18 00:00 IMPRESSION: Successful CT guided placement of right lower quadrant abdominal abscess drainage catheter. D/ / Sae Avilez MD / Sae Avilez MD Interpreting Provider: Sae Avilez MD Abdomen/Pelvis CT 07/29/18 10:00 IMPRESSION: 1. Redemonstration of long segment of acute diverticulitis and additional findings consistent with provided history of perforated diverticulitis. 2. Interval development of a 6 cm rim enhancing air-fluid collection in the right lower quadrant representing abscess formation. 3. Marked progression of peritoneal fat stranding and traces of fluid now diffusely involving the pelvis and lower abdomen consistent with worsening peritoneal inflammatory changes. Additionally there 2 more discrete larger fluid pockets measuring 2.5 cm in the right lower quadrant and 5.6 cm in the left lower quadrant. 4. Redemonstration of diffuse scattered pockets of free intraperitoneal air slightly increased from prior consistent with the perforated diverticulitis. The findings were sent to the Radiology Results Communication [facility] at 11:19 am on 07/29/2018to be communicated to a licensed caregiver. D/ / Troy Ho MD / Troy Ho MD Interpreting Provider: Troy Ho MD Chest X-Ray 07/31/18 12:27 IMPRESSION: Mild bibasilar airspace disease could represent atelectasis or pneumonia. D/ / Guicho Mosley MD / Guicho Mosley MD Interpreting Provider: Guicho Mosley MD Abdomen/Pelvis CT 08/01/18 09:00 IMPRESSION: Near complete resolution of the previously noted right lower quadrant fluid collection with drain in place. Small persistent leak evidenced by extraluminal oral contrast adjacent to the site of sigmoid perforation. Small right-sided pleural effusion and associated atelectasis. D/ / Guicho Mosley MD / Guicho Mosley MD Interpreting Provider: Guicho Mosley MD Chest X-Ray 08/02/18 11:13 IMPRESSION: Persistent bibasilar infiltrates could represent atelectasis or pneumonia D/ / Edmond Cooley MD / Edmond Cooley MD Interpreting Provider: Edmond Cooley MD - Patient Status Disposition: Home Health Service Condition: Fair Functional capacity at discharge: independent ambulation Overall status at discharge: patient is progressing back to baseline - Ambulatory Orders Ambulatory Orders: Complete Blood Count [HEME] Time Frame: 1 Week, Facility: [facility], Location: Lab - Discharge Instructions Instructions: Colostomy Care (DC), Soft Diet (DC), Colostomy Creation (DC) Follow Up With: Tamiko Louis MD [Partnered Physician] - 08/26/18 9:55 am Additional Instructions: General Surgical Discharge Instructions 1. No pushing, pulling, or lifting greater than 15 lbs for 6 weeks (depending upon procedure). 2. You may shower beginning today, but no tub baths, soaking, or swimming for 2 weeks. 3. You may resume driving when you are off narcotics and are safe to react in a car. 4. Take ibuprofen every 8 hours for discomfort. If this does not relieve discomfort, you may take the as needed Percocet. Take narcotics as directed. Do not take more narcotics then directed and do not share your narcotics with any other person. Do not drink alcohol while on narcotics. Do not take meloxicam while taking ibuprofen. Always eat a small amount of food and/or take Zofran prior to Percocet so you do not get an upset stomach. 5. Take stool softeners (Colace) or a water based laxative (Miralax) while taking narcotics. You may hold for loose stools. 6. Report any fevers greater than 100.5F, increase abdominal discomfort, drainage that looks like pus, increased redness or pain at the surgical site, or any vomiting. 7. Report any pain in the calves, shortness of breath, or rapid heartbeat. 8. Follow-up in the office as directed. 9. Take the antibiotics as prescribed per the infectious disease nurse practitioner or physician. Do not stop medications without talking to them. 10. Wound Care (Midline abdomen): remove dressing and packing. Wash with antibacterial soap. Repack with 1/4 inch plain gauze. Cover with dry dressing. Tape to secure. 11. Daily ostomy care. - Diet and Activity Activity: increase activity as tolerated Diet: other (soft meat, low fiber, ) <Tamiko Louis - Last Filed: 08/10/18 10:58> Orders not resulted at time of discharge: Pending orders 07/29/18 14:00 Fungal Culture [MYC] Routine 08/05/18 10:57 Culture,Blood [BC] Stat Date of Encounter: 08/10/18 - Discharge Diagnosis (1) Perforation of sigmoid colon due to diverticulitis Status: Acute (2) HTN (hypertension) Status: Chronic Qualifiers: Hypertension type: essential hypertension Qualified Code(s): I10 - Essential (primary) hypertension (3) Obesity Status: Chronic Qualifiers: Obesity type: due to excess calories Obesity classification: adult class 3 (BMI >= 40) Serious obesity comorbidity presence: with serious comorbidity Body mass index: BMI 45.0-49.9 Qualified Code(s): E66.01 - Morbid (severe) obesity due to excess calories; Z68.42 - Body mass index (BMI) 45.0-49.9, adult (4) Leukocytosis Status: Acute Qualifiers: Leukocytosis type: unspecified Qualified Code(s): D72.829 - Elevated white blood cell count, unspecified (5) Hypokalemia Status: Acute General Surgery Exam Initial Vital Signs Temp Pulse Resp BP Pulse Ox 98.3 F 91 16 162/94 94 07/26/18 15:51 07/26/18 15:51 07/26/18 15:51 07/26/18 15:51 07/26/18 15:51 - Hospital Course Hospital course: Mr. Liao is a 38 year old male - Time Spent with Patient Total time spent providing and/or coordinating discharge services: Date of admission: 07/29/18 17:12 Primary care physician: Demi Rogers CNP Consults: 07/26/18 19:49 Consult to Surgery [CONS] Stat Consulting Provider: Surgery [facility] Reason for Consult: Perforated diverticulitis Call Completed: Yes 07/28/18 15:39 Consult to Nutrition [CONS] Routine Comment: Consulting Provider: NUTRITION Reason for Dietary Consult: Diet Education Other:: low residue diet after ticitis, high fiber in 8 weeks 07/29/18 11:33 Consult to Interventional Radiology [CONS] Stat Consulting Provider: Radiology Interventional Cols Reason for Consult: fluid collection RLQ and LLQ; perforated diverticulitis Time Notified: 11:33 Call Completed: Yes 08/02/18 08:08 Consult to Invasive Line Access Team [CONS] Routine Reason for Consult: needs TPN Line Type: PICC Consult to Nutrition [CONS] Routine Comment: TPN Consulting Provider: NUTRITION Reason for Dietary Consult: TPN Start and Manage 08/02/18 13:19 Consult to Respiratory Therapy [CONS] Stat Reason for Consult: aggressive pulm toileting, accapella, scheudled duonebs pt with bl wheezing, cxr with atalectasis vs PNA Time Notified: 13:20 Call Completed: Yes 08/02/18 14:53 Consult to Invasive Line Access Team [CONS] Routine Reason for Consult: Picc Line Insertion Line Type: PICC 08/03/18 21:07 Consult to Wound Care [CONS] Routine Reason for Consult: new colostomy Time Notified: 19:45 Call Completed: No 08/05/18 08:41 Consult to Infectious Diseases [CONS] Routine Consulting Provider: Infectious Disease [place] Reason for Consult: antibiotic management Time Notified: 08:41 Call Completed: Yes 08/09/18 10:42 consult to customer service voice [Consult to Nutrition] [CONS] Stat Comment: colostomy diet Consulting Provider: NUTRITION Reason for Dietary Consult: Diet Education Labs on day of discharge: Preliminary micro results at discharge 08/05/18 10:57 Blood Culture - Preliminary Peripheral Venipuncture Culture is incubating and being continuously monitored for growth. Final report to follow. 08/05/18 10:49 Blood Culture - Preliminary Peripheral Venipuncture Culture is incubating and being continuously monitored for growth. Final report to follow. - Impressions ITS Impressions Abdomen/Pelvis CT 07/26/18 17:25 IMPRESSION: Perforated sigmoid diverticulitis. Scattered foci of intraperitoneal air throughout the abdomen. Cholelithiasis. D/ / Rich Soria MD / Rich Soria MD Interpreting Provider: Rich Soria MD Needle Aspiration CT 07/29/18 00:00 IMPRESSION: Successful CT guided placement of right lower quadrant abdominal abscess drainage catheter. D/ / Sae Avilez MD / Sae Avilez MD Interpreting Provider: Sae Avilez MD Abdomen/Pelvis CT 07/29/18 10:00 IMPRESSION: 1. Redemonstration of long segment of acute diverticulitis and additional findings consistent with provided history of perforated diverticulitis. 2. Interval development of a 6 cm rim enhancing air-fluid collection in the right lower quadrant representing abscess formation. 3. Marked progression of peritoneal fat stranding and traces of fluid now diffusely involving the pelvis and lower abdomen consistent with worsening peritoneal inflammatory changes. Additionally there 2 more discrete larger fluid pockets measuring 2.5 cm in the right lower quadrant and 5.6 cm in the left lower quadrant. 4. Redemonstration of diffuse scattered pockets of free intraperitoneal air slightly increased from prior consistent with the perforated diverticulitis. The findings were sent to the Radiology Results Communication Center at 11:19 am on 07/29/2018to be communicated to a licensed caregiver. D/ / Troy Ho MD / Troy Ho MD Interpreting Provider: Troy Ho MD Chest X-Ray 07/31/18 12:27 IMPRESSION: Mild bibasilar airspace disease could represent atelectasis or pneumonia. D/ / Guicho Moslye MD / Guicho Mosley MD Interpreting Provider: Guicho Mosley MD Abdomen/Pelvis CT 08/01/18 09:00 IMPRESSION: Near complete resolution of the previously noted right lower quadrant fluid collection with drain in place. Small persistent leak evidenced by extraluminal oral contrast adjacent to the site of sigmoid perforation. Small right-sided pleural effusion and associated atelectasis. D/ / Guicho Mosley MD / Guicho Mosley MD Interpreting Provider: Guicho Mosley MD Chest X-Ray 08/02/18 11:13 IMPRESSION: Persistent bibasilar infiltrates could represent atelectasis or pneumonia D/ / Edmond Cooley MD / Edmond Cooley MD Interpreting Provider: Edmond Cooley MD - Attending Attestation patient was discharged home under the nurse practitioner guidance before I had a chance to see patient
[2018-08-09 11:29] VITALS: BP 145/101
--- NOTE | 2018-08-09 13:19 | Physician Discharge Referral ---
Home Health/Hosp Referral Info Transfer to: Home Health Attending Provider: Dr. Tamiko Tay Provider in Charge Post Discharge: Other (same) - Diagnosis (1) Perforation of sigmoid colon due to diverticulitis Priority: Primary Status: Acute (2) Shortness of breath Priority: Secondary Status: Resolved (3) Wheezing Priority: Secondary Status: Resolved (4) HTN (hypertension) Priority: Secondary Status: Chronic (5) Obesity Priority: Secondary Status: Chronic (6) Anxiety Priority: Secondary Status: Resolved - Respiratory Orders Smoking Cessation: Smoking cessation has been advised. For more information, call the [place] Tobacco Quit Line at 9-550-SUBR-NOW. - Dressing/Wound Care Site: Midline. See below - Diet/Nutrition Diet/Nutrition: List: Soft, low fiber diet - Activity Activity Orders: Up ad emmett - Services Needed Following services are medically necessary services: [facility] Care Orders: General Surgical Discharge Instructions 1. No pushing, pulling, or lifting greater than 15 lbs for 6 weeks (depending upon procedure). 2. You may shower beginning today, but no tub baths, soaking, or swimming for 2 weeks. 3. You may resume driving when you are off narcotics and are safe to react in a car. 4. Take ibuprofen every 8 hours for discomfort. If this does not relieve discomfort, you may take the as needed Percocet. Take narcotics as directed. Do not take more narcotics then directed and do not share your narcotics with any other person. Do not drink alcohol while on narcotics. Do not take meloxicam while taking ibuprofen. Always eat a small amount of food and/or take Zofran prior to Percocet so you do not get an upset stomach. 5. Take stool softeners (Colace) or a water based laxative (Miralax) while taking narcotics. You may hold for loose stools. 6. Report any fevers greater than 100.5F, increase abdominal discomfort, drainage that looks like pus, increased redness or pain at the surgical site, or any vomiting. 7. Report any pain in the calves, shortness of breath, or rapid heartbeat. 8. Follow-up in the office as directed. 9. Take the antibiotics as prescribed per the infectious disease nurse practitioner or physician. Do not stop medications without talking to them. 10. Wound Care (Midline abdomen): remove dressing and packing. Wash with a ntibacterial soap. Repack with 1/4 inch plain gauze. Cover with dry dressing. Tape to secure. 11. Daily ostomy care. - Transfer Medications Prescriptions: Ondansetron ODT [Zofran ODT] 4 mg SL Q4HR PRN #15 tab.rapdis PRN Reason: Postsurgical nausea OxyCODONE/APAP 5/325 [Percocet 5/325 MG] 1 each PO Q6HR PRN 7 Days #28 tablet PRN Reason: Pain Amoxicillin/Clavulanate [Augmentin] 875 mg PO BIDWM 5 Days #10 tablet Docusate [Colace] 100 mg PO BID 30 Days #30 capsule Fluconazole [Diflucan] 400 mg PO DAILY 5 Days #10 tab Ibuprofen 800 mg PO Q8H PRN #30 tablet PRN Reason: Postsurgical pain Linezolid [Zyvox] 600 mg PO BID 5 Days #10 tablet Omeprazole [PriLOSEC] 20 mg PO DAILY@0630 #30 capsule. Polyethylene Glycol 3350 [MiraLAX] 17 gm PO DAILY #30 powd.pack Home Medications: Losartan Potassium [Cozaar] 100 mg PO DAILY 01/07/17 [History] Triamterene/HCTZ 37.5/25mg [Dyazide] 1 cap PO DAILY 01/07/17 [History] cloNIDine HCl [CloNIDine HCl] 0.1 mg PO HS PRN MDD >160/90 01/07/17 [History] Amoxicillin/Clavulanate [Augmentin] 875 mg PO BIDWM 5 Days #10 tablet 08/09/18 [Rx] Docusate [Colace] 100 mg PO BID 30 Days #30 capsule 08/09/18 [Rx] Fluconazole [Diflucan] 400 mg PO DAILY 5 Days #10 tab 08/09/18 [Rx] Ibuprofen 800 mg PO Q8H PRN #30 tablet 08/09/18 [Rx] Linezolid [Zyvox] 600 mg PO BID 5 Days #10 tablet 08/09/18 [Rx] Omeprazole [PriLOSEC] 20 mg PO DAILY@0630 #30 capsule. 08/09/18 [Rx] Ondansetron ODT [Zofran ODT] 4 mg SL Q4HR PRN #15 tab.rapdis 08/09/18 [Rx] OxyCODONE/APAP 5/325 [Percocet 5/325 MG] 1 each PO Q6HR PRN 7 Days #28 tablet 08/09/18 [Rx] Polyethylene Glycol 3350 [MiraLAX] 17 gm PO DAILY #30 powd.pack 08/09/18 [Rx] Allergies/Adverse Reactions: Allergy/AdvReac Type Severity Reaction Status Date / Time YANA Inhibitors AdvReac THROAT Verified 07/27/18 14:30 ITCH, COUGH codeine AdvReac Vomiting, Verified 07/27/18 14:30 STOMACH PROBLEMS Certification: Further, I certify that my clinical findings support that this patient is homebound (i.e. absences from home require considerable and taxing effort and are for medical reasons or mormonism services or infrequently or short duration when for other reasons) because: Homebound Reason: Post-surgery restriction and or conditions limit ability to leave home, Leaving home requires considerable and taxing effort due to condition Attestation: My signature below is to certify that this patient is under my care and that I, or nurse practitioner, or a physician's assistant professor of psychology working with me, has a [id number] encounter with this patient.
--- NOTE | 2018-08-09 14:02 | Infectious Disease Progress No ---
Date of Encounter: 08/09/18 Time of Encounter: 12:30 - Assessment and Plan (1) Sepsis Status: Acute The patient had 3 sepsis criteria on admission. Likely secondary to perforated diverticulitis and intra-abdominal abscess. Improved. Fevers and tachycardia have resolved. White blood cell count is trending down. Blood cultures drawn 07/26/18 are no growth to date 2 sets. Repeat blood cultures drawn 08/05/18 are NGTD 2 sets. Clinically, the patient looks great. He does have a PICC line, but clinically does not appear infected. Amylase, lipase, and LFTs were normal. Recommendations: Await repeat blood cultures. Pain/diet/activity/wound care per the general surgery team. Continue Rocephin 2 grams IV daily. Continue daptomycin 4mg/kg IV daily. Baseline CK level elevated, but could be due to recent surgery. Repeat CK level normal. Continue flagyl 500mg PO TID. Continue fluconazole 400 mg IV daily. Duration of treatment depends on the clinical picture. Can transition to A ugmentin 875mg PO BID, Linezolid 600mg PO BID, and fluconazole 400mg PO daily when ready for discharge to complete a 10 day post-op course. Monitor renal function and dose adjust antibiotics. Qualifiers: Sepsis type: sepsis due to unspecified organism Qualified Code(s): A41.9 - Sepsis, unspecified organism (2) Intra-abdominal abscess Status: Acute Location: Right lower quadrant. Causative organism: Klebsiella pneumoniae, Escherichia coli, VRE, and Bacteroides 2. Jose R to perforated diverticulitis. CT of the abdomen and pelvis 07/29/18 showed a 6 cm abscess to the right lower quadrant with additional fluid pockets to the right lower and left lower quadrants. Status post drain placement 07/29/18 by interventional radiology. Approximate 40 mls of purulent drainage removed from the abdomen and sent for culture. Repeat CT 08/01/18 showed resolution of the abscess, but did show small persistent leak of the sigmoid colon. Gen. surgery following. Status post exploratory laparotomy with Silvia procedure, takedown of the splenic flexure, and appendectomy 08/03/[address] Louis. No additional cultures were obtained. Currently on Rocephin, fluconazole, and daptomycin, and flagyl. (3) Perforation of sigmoid colon due to diverticulitis Status: Acute CT the abdomen and pelvis 07/26/18 showed findings consistent with perforated sigmoid diverticulitis and scattered foci of intraperitoneal air throughout the abdomen. Gen. surgery following. Opted initially to pursue conservative treatment, but the patient had persistent sepsis-like picture a repeat CT showed a persistent leak, so the patient was taken to the operating room 08/03/18 for expiratory la parotomy with Silvia procedure, takedown splenic flexure, and appendectomy by Dr. Louis. (4) Shortness of breath Status: Resolved CXR 08/02/18 showed persistent bibasilar infiltrates concerning for atelectasis vs. PNA. Resolved. Supportive care per the primary team. (5) HTN (hypertension) Status: Chronic Qualifiers: Hypertension type: essential hypertension Qualified Code(s): I10 - Essential (primary) hypertension (6) Obesity Status: Chronic Qualifiers: Obesity type: due to excess calories Obesity classification: adult class 3 (BMI >= 40) Serious obesity comorbidity presence: with serious comorbidity Body mass index: BMI 45.0-49.9 Qualified Code(s): E66.01 - Morbid (severe) obesity due to excess calories; Z68.42 - Body mass index (BMI) 45.0-49.9, adult - Subjective Interval history: Patient seen and examined. No acute events noted overnight. Patient states overall he feels well. He reports mild pain at surgical site with movement. Denies any chest pain or shortness of breath or cough. Denies nausea, vomiting, or intra-abdominal pain. He states he feels great. He denies any fevers or chills or rigors. He states his appetite is fair and has been advanced to a regular diet. Denies urinary complaints. He denies any back, joint, or extremity pain at this time. Infect Dis PN-Objective Data - Labs CBC & Chem 7: 08/09/18 04:00 08/09/18 04:00 Labs: Laboratory Results - last 24 hr 08/05/18 08/06/18 08/06/18 16:25 16:08 19:49 WBC RBC Hgb Hct MCV MCH MCHC RDW Plt Count MPV Immature Gran % Seg Neutrophils % Lymphocytes % Monocytes % Eosinophils % Basophils % Neutrophils # Lymphocytes # Monocytes # Eosinophils # Basophils # Sodium Potassium Chloride Carbon Dioxide BUN Creatinine Est GFR ( Amer) Est GFR (Non-Af Amer) BUN/Creatinine Ratio Glucose POC Glucose 118 H 110 H 127 H Calculated Osmolality Calcium Creatine Kinase 08/06/18 08/07/18 08/07/18 23:23 04:00 06:35 WBC RBC Hgb Hct MCV MCH MCHC RDW Plt Count MPV Immature Gran % Seg Neutrophils % Lymphocytes % Monocytes % Eosinophils % Basophils % Neutrophils # Lymphocytes # Monocytes # Eosinophils # Basophils # Sodium Potassium Chloride Carbon Dioxide BUN Creatinine Est GFR ( Amer) Est GFR (Non-Af Amer) BUN/Creatinine Ratio Glucose POC Glucose 108 H 88 100 H Calculated Osmolality Calcium Creatine Kinase 08/07/18 08/07/18 08/08/18 10:56 16:34 16:35 WBC RBC Hgb Hct MCV MCH MCHC RDW Plt Count MPV Immature Gran % Seg Neutrophils % Lymphocytes % Monocytes % Eosinophils % Basophils % Neutrophils # Lymphocytes # Monocytes # Eosinophils # Basophils # Sodium Potassium Chloride Carbon Dioxide BUN Creatinine Est GFR ( Amer) Est GFR (Non-Af Amer) BUN/Creatinine Ratio Glucose POC Glucose 108 H 96 104 H Calculated Osmolality Calcium Creatine Kinase 08/09/18 08/09/18 08/09/18 04:00 04:00 04:00 WBC 15.0 H RBC 4.09 L Hgb 10.8 L Hct 34.2 L MCV 83.6 MCH 26.4 L MCHC 31.6 RDW 15.9 H Plt Count 521 H MPV 9.1 L Immature Gran % 4.4 H Seg Neutrophils % 69.7 Lymphocytes % 13.5 Monocytes % 6.9 Eosinophils % 4.9 Basophils % 0.6 Neutrophils # 10.5 H Lymphocytes # 2.0 Monocytes # 1.0 Eosinophils # 0.7 H Basophils # 0.1 Sodium 138 Potassium 4.1 Chloride 101 Carbon Dioxide 29 BUN 16 Creatinine 0.90 Est GFR ( Amer) > 60 Est GFR (Non-Af Amer) > 60 BUN/Creatinine Ratio 18 Glucose 106 H POC Glucose Calculated Osmolality 288 Calcium 8.6 Creatine Kinase 137 Cultures: Cultures 07/29/18 14:00 Body Fluid Culture - Final Other-Specify in Comments Klebsiella pneu.ssp pneumoniae Escherichia coli Vancomycin Resistant Enterococcus faecium 08/05/18 10:57 Blood Culture - Preliminary Peripheral Venipuncture Culture is incubating and being continuously monitored for growth. Final report to follow. 08/05/18 10:49 Blood Culture - Preliminary Peripheral Venipuncture Culture is incubating and being continuously monitored for growth. Final report to follow. 07/29/18 14:00 Anaerobic Culture - Final Aspirate Bacteroides thetaiotaomicron#2 Bacteroides thetaiotaomicron 07/26/18 22:48 Blood Culture - Final Peripheral Venipuncture No growth. Final report. 07/26/18 23:24 Blood Culture - Final Peripheral Venipuncture No growth. Final report. Serology 07/26/18 Range/Units 18:09 Urine Color Yellow (Yellow) Urine Clarity Clear (Clear) Urine pH 5.5 (5.0-8.0) pH Units Ur Specific Tracy 1.022 (1.010-1.025) Urine Protein Negative (Neg-Trace) mg/dL Urine Glucose (UA) Normal (Normal) mg/dL Urine Ketones Negative (Negative) mg/dL Urine Blood Negative (Negative) Urine Nitrite Negative (Negative) Urine Bilirubin Negative (Negative) Urine Urobilinogen Normal (Normal) mg/dL Ur Leukocyte Esterase Negative (Negative) Ur Culture Indicated? NO (NO) Exam - Constitutional Vitals: Temp Pulse Resp BP Pulse Ox 98.3 F 86 16 145/101 96 08/09/18 11:22 08/09/18 11:22 08/09/18 11:22 08/09/18 11:22 08/09/18 11:22 General appearance: cooperative, morbidly obese, no acute distress - Head Head exam: Present: atraumatic, normal inspection, normocephalic - Eye Eye exam: Present: EOMI, normal appearance, PERRL Pupils: Present: normal accommodation - ENT ENT exam: Present: mucous membranes moist - Neck Neck exam: Present: normal inspection - Respiratory Respiratory exam: Present: CTAB. Absent: rales, respiratory distress, rhonchi, wheezes - Cardiovascular Cardiovascular exam: Present: RRR, +S1, +S2 - GI/Abdominal GI/Abdominal exam: Present: distended (obese), normal bowel sounds, soft. Absent: tenderness Additional comments: Midline abdominal incision dressing with small amount of shadow drainage noted. LETICIA drain noted to the left abdomen with small amount of serosanguinous drainage noted. Colostomy noted to the left abdomen with small amount of soft brown stool noted. - Extremities Exam Extremities exam: Present: normal inspection. Absent: joint swelling, pedal edema, tenderness - Neurological Exam Neurological exam: Present: alert, oriented X3, no focal deficits - Psychiatric Psychiatric exam: Present: normal affect, normal mood - Skin Skin exam: Present: dry, intact, normal color, warm Consult Discharge Plan - Plan Instructions: Colostomy Care (DC), Soft Diet (DC), Colostomy Creation (DC) Additional Instructions: General Surgical Discharge Instructions 1. No pushing, pulling, or lifting greater than 15 lbs for 6 weeks (depending upon procedure). 2. You may shower beginning today, but no tub baths, soaking, or swimming for 2 weeks. 3. You may resume driving when you are off narcotics and are safe to react in a car. 4. Take ibuprofen every 8 hours for discomfort. If this does not relieve discomfort, you may take the as needed Percocet. Take narcotics as directed. Do not take more narcotics then directed and do not share your narcotics with any other person. Do not drink alcohol while on narcotics. Do not take meloxicam while taking ibuprofen. Always eat a small amount of food and/or take Zofran prior to Percocet so you do not get an upset stomach. 5. Take stool softeners (Colace) or a water based laxative (Miralax) while taking narcotics. You may hold for loose stools. 6. Report any fevers greater than 100.5F, increase abdominal discomfort, dr rubin that looks like pus, increased redness or pain at the surgical site, or any vomiting. 7. Report any pain in the calves, shortness of breath, or rapid heartbeat. 8. Follow-up in the office as directed. 9. Take the antibiotics as prescribed per the infectious disease nurse practitioner or physician. Do not stop medications without talking to them. 10. Wound Care (Midline abdomen): remove dressing and packing. Wash with ant ibacterial soap. Repack with 1/4 inch plain gauze. Cover with dry dressing. Tape to secure. 11. Daily ostomy care. Referrals: Tamiko Louis MD [Partnered Physician] - 08/26/18 9:55 am Prescriptions: Ondansetron ODT [Zofran ODT] 4 mg SL Q4HR PRN #15 tab.rapdis PRN Reason: Postsurgical nausea RX: OxyCODONE/APAP 5/325 [Percocet 5/325 MG] 1 each PO Q6HR PRN 7 Days #28 tablet PRN Reason: Pain Amoxicillin/Clavulanate [Augmentin] 875 mg PO BIDWM 5 Days #10 tablet RX: Docusate [Colace] 100 mg PO BID 30 Days #30 capsule RX: Fluconazole [Diflucan] 400 mg PO DAILY 5 Days #10 tab RX: Ibuprofen 800 mg PO Q8H PRN #30 tablet PRN Reason: Postsurgical pain Linezolid [Zyvox] 600 mg PO BID 5 Days #10 tablet RX: Omeprazole [PriLOSEC] 20 mg PO DAILY@0630 #30 capsule. RX: Polyethylene Glycol 3350 [MiraLAX] 17 gm PO DAILY #30 powd.pack - Attending Attestation I have personally performed a face to face evaluation on this patient. I have reviewed and agree with the care plan. History and Exam by me shows: Assessment and plan: 1.sepsis 2.intra-abdominal abscess 3.perforation of sigmoid colon due to diverticulitis status post Silvia procedure, takedown splenic flexure and appendectomy 08/03/2018 4.Morbid obesity BMI 47 Recommendations Recommendations: Await repeat blood cultures. Continue Rocephin 2 grams IV daily. Continue daptomycin 4mg/kg IV daily. Baseline CK level elevated, but could be due to recent surgery. Will re-check Thursday. Monitor closely for myalgias and c hanges in renal function. Continue flagyl 500mg PO TID. Continue fluconazole 400 mg IV daily. consider swithcing to oral fluconazole soon Duration of treatment depends on the clinical picture. Monitor renal function and dose adjust antibiotics.
== END 2018-08-09 15:44 | disposition home health service (06) | DRG 853 ==
LOC: 3ANU 15:20 → EMEROOARM 15:20 → 3ANU 23:46
PROVIDERS: ADMIT Surgery; ATTEND Surgery
PROC: IRDRAIN (2018-07-29 12:00)

== ENCOUNTER 2019-01-17 11:06 | Inpatient (IN) ==
[2019-01-17] MEDS ORDERED: cefOXitin 2,000 MG in Water for inj. (sterile) 20 ML IVP ONE (11:53)
[2019-01-17] MEDS ORDERED: Ringers Solution, Lactated 1,000 ML IVC SCH (12:00)
[2019-01-17] MEDS ORDERED: *HR* FentaNYL (PF) 100 MCG/2 ML VIAL ONE (12:52)
[2019-01-17] MEDS ORDERED: *HR* Midazolam HCl 2 MG/2 ML VIAL ONE (12:52)
[2019-01-17] MEDS ORDERED: *HR* Propofol 200 MG/20 ML VIAL IVP ONE ×2 (12:53)
[2019-01-17] MEDS ORDERED: *HR* Rocuronium Bromide 50 MG/5 ML VIAL ONE ×2 (12:55→16:56)
[2019-01-17] MEDS ORDERED: *HR* Succinylcholine 200 MG/10 ML VIAL IVP ONE (12:55)
[2019-01-17] MEDS ORDERED: Lidocaine HCL 4 ML Topical Solution (Laryng-O-Jet Kit Sterile Pak) TP ONE (12:56)
[2019-01-17] MEDS ORDERED: Acetaminophen IV 1,000 MG/100 ML INFUS..BTL IVPB ONE (13:05)
--- NOTE | 2019-01-17 13:07 | Anesthesia Evaluation PreOp ---
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 SALVAGE History: Other (ADHD) Other Medical History: GERD, Other (chews tobacco, BMI 44) Anesthesia History: No Prior Anesthetic Complications (Easy Elective glidescope in the past), Past Anesthesia (RIF R Tib-Fib, Nasal Fx, T&A, ORIF B-hand Fx, Coello's procedure, colonoscopy) Alcohol Use: none Drug use: none Medications and Allergies Losartan Potassium [Cozaar] 100 mg PO QAM 01/07/17 [History] Triamterene/HCTZ 37.5/25mg [Dyazide] 1 cap PO QAM 01/07/17 [History] cloNIDine HCl [CloNIDine HCl] 0.1 mg PO HS PRN MDD BP >160/90 01/07/17 [History] Amlodipine Besylate 10 mg PO QAM 01/17/19 [History] BuPROPion SR (12 HR) [Wellbutrin SR] 150 mg PO QAM 01/17/19 [History] Allergy/AdvReac Type Severity Reaction Status Date / Time YANA Inhibitors AdvReac THROAT Verified 01/17/19 11:43 ITCH, COUGH codeine AdvReac Vomiting, Verified 01/17/19 11:43 STOMACH PROBLEMS - Meds/Allergy Pre-op Review Medications Reviewed: Yes Allergies Reviewed: Yes Beta Blockers on Current Med List: No Anesthesia Results - Labs Laboratory Tests 01/05/19 01/05/19 09:05 09:05 Hgb 14.2 Potassium 4.1 - Imaging EKG: report reviewed (Interpretive Statements Sinus tachycardia Electronically Signed On 07-28-2018 11:29:39 EST by Bijal Chavez) Anesthesia Exam O2 Sat Height 1.85 m Height 1.85 m Weight 154.221 kg Weight 154.221 kg O2 Sat by Pulse Oximetry 95 Vital Signs Temp Pulse Resp BP Pulse Ox 98.3 F 96 18 136/90 95 01/17/19 11:36 01/17/19 11:36 01/17/19 11:36 01/17/19 11:36 01/17/19 11:36 Weight: 336lbs NPO (# of Hours): >8 - HEENT Pupil (Motor): Pupils equal, EOMI Mallampati: III Teeth: Normal Oral Opening: Greater than 3 - INSPECTOR SALVAGE LOC: Oriented INSPECTOR SALVAGE Motor: Normal RUE, Normal LUE, Normal RLE, Normal LLE, Normal Face INSPECTOR SALVAGE Sensory: Normal: RUE, LUE, RLE, LLE, Face - Cardiac Rhythm: Regular - Pulmonary Breath Sounds: bilateral Clear Respiratory Effort: Symmetrical Anesthesia Assess/Plan ASA Score: 3 Level of consciousness: Cooperative Anesthetic Plan: General Monitoring Plan: Standard Monitors Recovery Plan: PACU
[2019-01-17] MEDS ORDERED: *HR* OxyCODONE Immed Rel 5 MG TABLET PO PRN (13:12)
[2019-01-17] MEDS ORDERED: *HR* Promethazine 25 MG/ML VIAL IVP PRN ×2 (13:12→21:43)
[2019-01-17] MEDS ORDERED: *HR* Meperidine 25 MG/ML SYRINGE IVP PRN (13:12)
[2019-01-17] MEDS ORDERED: Ondansetron 4 MG/2 ML VIAL IVP ONE (13:12)
[2019-01-17] MEDS ORDERED: *HR* FentaNYL (PF) 100 MCG/2 ML VIAL IVP PRN (13:12)
--- NOTE | 2019-01-17 14:09 | General Surg History&Physical ---
Date of Encounter: 01/17/19 Time of Encounter: 14:07 Assessment and Plan (1) Status post Radha's procedure Current Visit: Yes Status: Chronic The assessment and plan as outlined above was discussed with the patient and/or family members who expressed understanding and agreement. All questions were answered. patient here today for radha reversal, risks and benefits previously discussed and he wishes to proceed (2) Perforation of intestine due to diverticulitis of gastrointestinal tract Current Visit: No Status: Resolved The assessment and plan as outlined above was discussed with the patient and/or family members who expressed understanding and agreement. All questions were answered. (3) HTN (hypertension) Current Visit: No Status: Chronic The assessment and plan as outlined above was discussed with the patient and/or family members who expressed understanding and agreement. All questions were answered. Qualifiers: Hypertension type: essential hypertension Qualified Code(s): I10 - Essential (primary) hypertension (4) Obesity Current Visit: No Status: Chronic The assessment and plan as outlined above was discussed with the patient and/or family members who expressed understanding and agreement. All questions were answered. Qualifiers: Obesity type: due to excess calories Obesity classification: adult class 3 (BMI >= 40) Serious obesity comorbidity presence: with serious comorbidity Body mass index: BMI 45.0-49.9 Qualified Code(s): E66.01 - Morbid (severe) obesity due to excess calories; Z68.42 - Body mass index (BMI) 45.0-49.9, adult (5) DVT prophylaxis Current Visit: No Status: Acute The assessment and plan as outlined above was discussed with the patient and/or family members who expressed understanding and agreement. All questions were answered. History of Present Illness Chief complaint: history diverticulitis HPI: Mr. Liao is a 38 year old male with radha procedure due to diverticulitis Past Med Surg Social Fam HX - Past Medical History Source: patient Medical history: GERD, hypertension, other Additional medical history: obesity, right ankle pain, Diverticulitis Psychiatric history: anxiety, ADHD - Past Surgical History Surgical History: colectomy, other Additional surgical history: fx rt tib/fib. fx both hand fx. nasal fx. t&A. Sigmoid colectomy - Social History Smoking Status: Never smoker Smokeless Tobacco Status: Yes (Daily) Alcohol use: none Drug use: none Medications and Allergies Losartan Potassium [Cozaar] 100 mg PO QAM 08/16/17 [History] Triamterene/HCTZ 37.5/25mg [Dyazide] 1 cap PO QAM 01/07/17 [History] cloNIDine HCl [CloNIDine HCl] 0.1 mg PO HS PRN MDD BP >160/90 01/07/17 [History] Amlodipine Besylate 10 mg PO QAM 01/17/19 [History] BuPROPion SR (12 HR) [Wellbutrin SR] 150 mg PO QAM 01/17/19 [History] Allergy/AdvReac Type Severity Reaction Status Date / Time YANA Inhibitors AdvReac THROAT Verified 01/17/19 11:43 ITCH, COUGH codeine AdvReac Vomiting, Verified 01/17/19 11:43 STOMACH PROBLEMS Review of Systems All systems PM: reviewed and no additional remarkable complaints except as stated All systems PM: The remainder of the systems were reviewed and are negative General Surgery Exam Initial Vital Signs Temp Pulse Resp BP Pulse Ox 98.3 F 96 18 136/90 95 01/17/19 11:36 01/17/19 11:36 01/17/19 11:36 01/17/19 11:36 01/17/19 11:36 - General physical appearance well developed, well nourished, no distress - Eyes PERRL, normal ocular movement - ENT normal mucosa, normocephalic - Neck trachea midline - Respiratory normal expansion, normal respiratory effort - Cardiovascular Cardiovascular exam: Present: RRR - Abdomen Abdomen general surgery: Present: bowel sounds present, soft, non tender - Integumentary Integumentary general surgery: Present: warm and dry - Musculoskeletal Present: normal gait, normal posture - Psychiatric Psychiatric general surgery: Present: A&Ox3 Results - Labs All other labs normal.
[2019-01-17] MEDS ORDERED: Lidocaine -MPF 2% 2 ML VIAL ONE (14:36)
[2019-01-17] MEDS ORDERED: *HR* PHENYLEPHRINE 1,000 MCG/10 ML SYRINGE IVP ONE ×2 (14:50→17:58)
[2019-01-17] MEDS ORDERED: EPHEDrine 50 MG/ML VIAL ONE (15:10)
[2019-01-17] MEDS ORDERED: Ondansetron 4 MG/2 ML VIAL ONE (15:28)
[2019-01-17] MEDS ORDERED: Dexamethasone 4 MG/ML VIAL ONE (15:28)
[2019-01-17] MEDS ORDERED: Neostigmine Methylsulfate 3 MG/3 ML SYRINGE ONE ×2 (15:28→17:58)
--- NOTE | 2019-01-17 19:44 | Operative Note ---
Date of procedure: 01/17/19 Pre-op diagnosis: Perforated diverticulitis, Silvia Post-op diagnosis: same Procedure: Sivlia reversal, diverting loop ileostomy Complications: none immediate Anesthesia: GETA, local Local Anesthetics: 0.5% Sensorcaine HCL SubQ (cc) Surgeon: Tamiko Louis Was there an assistant librarian present: Yes [facility] Former: Marlene Vega [facility] Former Other: Noel Valdez Estimated blood loss (cc): 50 Urine output (cc): 175 Specimen: anastomotic rings, rectum Condition: stable Disposition: PACU Procedure in Detail: Patient was brought into the operating suite and placed supine on the operating table. Sign in was performed and everyone was in agreement. Anesthesia was induced and patient was endotracheally intubated by anesthesia without incident. NG tube was placed by anesthesia. Aguilar catheter was placed by the circulating nurse. Patient was placed in the lithotomy position in yellowfin stirrups. Colostomy appliance was removed and the colostomy was closed with a 2-0 silk pursestring stitch. Perineum, buttock, abdomen were prepped and draped in the usual sterile fashion. Timeout was performed again everyone was in agreement. An elliptical incision through the skin and the subcutaneous tissue at the colostomy in the left lateral abdominal wall was made with a 15 blade. We dissected the colostomy/: Free from the subcutaneous tissue down to the anterior abdominal wall fascia. Patient had a large wide keloid appearing scar of the midline. Patient's previous midline scar was excised with a 15 blade in an elliptical fashion through the skin and the subcutaneous tissue. Scar was dissected off with the Bovie. Patient had a midline hernia in the abdomen was entered then at the midline with gentle blunt dissection and the Bovie. Washington's are placed on either side of the fascia for retraction and the incision was elongated proximally and distally with the Bovie. Adhesions from the omentum, colon, small bowel to the anterior abdominal wall were taken down with gentle blunt dissection, Metzenbaum scissors and the Bovie. Paul's are placed on the left lateral abdominal wall for retraction and the colostomy was taken down off the fascia with the Bovie. Patient's splenic flexure was taken down at the prior surgery. Distal sigmoid colon mesentery was dissected up to the middle colic vessels with the Bovie. Omentum was taken off the colon distally to proximally with the Bovie. The left colon reach well into the pelvis. Allis clamps were placed on the colostomy and for retraction. Pursestring stap ler was placed on the distal left colon, Babcocks were placed on the open colon and the colon was dilated up to 33 mm. A 33 mm EEA stapler was chosen to create the colorectal anastomosis. The anvil was placed into the distal left colon and the pursestring stitch tied. The assistant librarian went down to the perineum 4/anal area and the dilators were used to dilate up the rectum. The dilators did not reach the last 4 cm of the proximal rectum. The mesentery and retroperitoneum surrounding the proximal rectum were taken down with gentle blunt dissection and the Bovie. Using the contour stapler green load the proximal rectum was transected. The dilators reach to the rectum staple edge. The EEA stapler was placed into the anus into the rectum and the spike deployed. The anvil was placed on the spike and while closing down the stapler it was noted the anvil had torn through the distal left colon. The EEA stapler was left in place being held by the assistant librarian at the spike and already been deployed through the rectum. Another pursestring stapler was placed just proximally on the distal left colon, distal colon transected with heavy Metzenbaum scissors and the pursestring was tied to another 33 mm EEA stapler anvil. A 2-0 Prolene stitch pursestring stitch was placed around the anvil securing the colon around the anvil. A colorectal anastomosis using the 33 mm EEA stapler was then created. 2 complete rings were found on the stapler. The patient was placed in slight reverse Trendelenburg and the pelvis was filled with sterile saline. A 30's cc catheter was placed into the anus and the balloon insufflated with sterile saline. The leak test was performed at 240 mL of air and there was no leak present. Sterile saline was suctioned free from the abdomen. Due to the patient's morbid obesity the depth of the pelvis, and the anastomosis being just perceptible below the pubic bone it was extremely difficult to locate a leak. Dr. Valdez was called into the operating room to assist with locating the leak which she was able to locate. He oversewed the anastomotic leak with 3, 3-0 silk stitches. The leak test was performed again and no obvious leak was present. A 19-Greenlandic Javi drain was placed to the right lower quadrant abdominal wall into the pelvis below the anastomosis anteriorly to the rectum. The Javi drain was secured to the skin with a 2-0 silk stitch. Due to patient's obesity, difficulty in creating the anastomosis and with this subsequent leak and repair I decided a diverting loop ostomy to protect the anastomosis was required. Approximately 20-25 cm area of small bowel proximal to the terminal ileum was located and marked with the ink marking pen at the antimesenteric small bowel. An opening in the right lower quadrant abdominal wall at the level of the skin was created in a circular fashion with a 15 blade. The skin was excised with the Bovie. An opening in the lateral rectus muscle was made with the Bovie, in a cruciate fashion. [place] was placed through this opening and the small bowel at the area previously marked was pulled up through the anterior abdominal wall. Washington's are placed on the left abdominal wall for retraction and exposure. The posterior rectus fascia was freed from the abdominal wall rectus muscle at the opening of the previous colostomy with a Bovie. The posterior rectus fascia was reapproximated with #1 non-looped PDS running stitch. The previous colostomy site was irrigated with sterile saline. The anterior rectus fascia was freed up from the rectus muscle with the Bovie circumferentially. The anterior rectus fascia was reapproximated with #1 non-looped PDS running stitch. The subcutaneous tissue was reapproximated with 3-0 Vicryl interrupted stitches and the skin was closed with agustina. Paul's are placed on either side of the fascia for retraction. The midline fascia was closed with 2 separate #1 looped PDS running stitches meeting in the middle. The subcutaneous tissue was copiously irrigated with sterile saline. The subcutaneous tissue was reapproximated with 3-0 Vicryl interrupted stitches. The skin was closed with agustina. Attention was now turned to creating the loop ileostomy. An opening beneath the small bowel in the mesentery was made with the Bovie and a Shreya. A red rubber catheter was placed beneath this, the catheter trimmed and secured to the skin with 2-0 silk stitches. The cranial aspect of the ileostomy which coincides with the distal ileum was opened with the Bovie. Full-thickness small bowel with 4-0 Vicryl stitches to the subcutaneous tissue was used to create the colostomy superiorly. The small bowel was inverted and a false pass configuration of the proximal small bowel caudally was attempted to be created but due to the patient's morbid obesity and the small bowel just reaching the skin surface this was not possible due to tension. The ileostomy ended up being flush with the skin surface. Colostomy appliance was applied. 4 x 4 gauze and Medipore tape were applied to the midline as a dressing. Drain sponge and Medipore tape were applied to the right lower quadrant Javi drain. Quarter inch iodoform packing was packed into the previous colostomy site wound, cover with 4 x 4 gauze and Medipore tape. All lap and instrument counts are correct at the end of the case. The Aguilar catheter as well as the NG tube remained with the patient. He was awoken by anesthesia and extubated in the OR. He was taken to PACU in stable condition.
--- NOTE | 2019-01-17 20:37 | Anesthesia Evaluation Post Op ---
Date of Encounter: 01/17/19 Time of Encounter: 20:45 - Vital Signs Vital Signs: Vital Signs/O2 Sat/Glucose, Most Current Temp Pulse Resp BP Pulse Ox 01/17/19 20:18 97.8 F 100 16 110/70 94 01/17/19 20:08 97 20 111/65 90 01/17/19 19:58 104 22 94/60 93 01/17/19 19:48 98.0 F 97 20 86/51 93 - Lungs Lungs: Clear Ascult./Percussion - Airway Airway: Non-obstructed - Cardiovascular Regular Rate - Mental Status Mental Status: Asleep with brisk response to light stimulation - Pain Pain Scale: 1 - Nausea Vomiting Nausea Vomiting: Not Present - Hydration Hydration: NPO - Discharge PostOp Status: Transfer Patient to floor (Will order CPAP)
[2019-01-17] MEDS ORDERED: cloNIDine HCl 0.1 MG TABLET PO PRN (21:43)
[2019-01-17] MEDS ORDERED: Naloxone 0.4 MG/ML INJ IVP PRN (21:43)
[2019-01-17] MEDS ORDERED: *HR* Metoprolol 5 MG/5 ML VIAL IVP PRN (21:43)
[2019-01-17] MEDS ORDERED: Ondansetron 4 MG/2 ML VIAL IVP PRN (21:43)
[2019-01-17] MEDS: 0.9 % Sodium Chloride 1,000 ML IVC SCH (22:10)
[2019-01-17] MEDS: Piperacillin/Tazobactam 3.375 GM in 0.9 % Sodium Chloride Mini Bag 100 ML IVPB SCH (23:51)
[2019-01-17] MEDS: Acetaminophen IV 1,000 MG/100 ML INFUS..BTL IVPB SCH (23:51)
[2019-01-18] MEDS: Pantoprazole 40 MG VIAL IVP SCH (04:43)
[2019-01-18] MEDS: Acetaminophen IV 1,000 MG/100 ML INFUS..BTL IVPB SCH ×4 (04:43→23:32)
[2019-01-18] MEDS: 0.9 % Sodium Chloride 1,000 ML IVC SCH ×4 (04:51→23:46)
[2019-01-18 06:21] LABS: Basophils % 0.1 %; Hematocrit 41.1 % (37.5-50.1); Hemoglobin 13.2 g/dL (12.9-16.9); Immature Granulocytes % 0.5 % (0-4); Lymphocytes # 0.7 K/mcL (0.6-4.6); Lymphocytes % 3.4 %; Mean Corpuscular HGB Conc 32.1 g/dL (31.6-35.5); Mean Corpuscular Hemoglobin 26.6 pg (28.0-33.3); Mean Corpuscular Volume 82.9 fL (83.0-100.0); Mean Platelet Volume 10.6 fL (9.4-12.4); Monocytes # 1.7 K/mcL (0.0-1.3); Neutrophils # 18.9 K/mcL (1.6-8.9); Platelet Count 290 K/mcL (140-400); Red Blood Count 4.96 M/mcL (4.19-5.50); Red Cell Distribution Width 16.6 % (11.5-14.5); White Blood Count 21.5 K/mcL (4.3-11.1)
[2019-01-18 06:42] LABS: Calcium 8.7 mg/dL (8.6-10.3); Phosphorous 4.3 mg/dL (2.7-4.5); Potassium 4.8 mEq/L (3.5-5.1)
[2019-01-18] MEDS: Piperacillin/Tazobactam 3.375 GM in 0.9 % Sodium Chloride Mini Bag 100 ML IVPB SCH ×3 (07:40→23:33)
[2019-01-18] MEDS: amLODIPine 5 MG TABLET PO SCH (07:43)
[2019-01-18] MEDS: BuPROPion SR (12 HR) 150 MG TABLET PO SCH (07:44)
[2019-01-18] MEDS ORDERED: 0.9 % Sodium Chloride 1,000 ML IVC ONE (08:34)
[2019-01-18] MEDS ORDERED: 0.9 % Sodium Chloride 1,000 ML IV ONE (10:00)
--- NOTE | 2019-01-18 10:32 | General Surgery Progress Note ---
<KyleGriselda Wendy - Last Filed: 01/18/19 10:39> Date of Encounter: 01/18/19 Time of Encounter: 08:15 - Assessment and Plan (1) Status post Radha's procedure Current Visit: Yes Status: Chronic Date of procedure: 01/17/19 Pre-op diagnosis: Perforated diverticulitis, Radha Post-op diagnosis: same Procedure: Radha reversal, diverting loop ileostomy Complications: none immediate Anesthesia: GETA, local Local Anesthetics: 0.5% Sensorcaine HCL SubQ (cc) Surgeon: Tamiko Louis POD #1 as above. Plan: Continue supportive care and discomfort management while awaiting full return of bowel function scheduled Ofirmev, sublingual oxycodone Continue G.I. and DVT prophylaxis protonix and heparin Incentive spirometry 10 times every hour while awake Out of bed to chair TID beginning today Apply ice 20 minutes on 20 minutes off as needed NG to LIWS. Can clamp for one hour after medication administration NPO except ice chips and meds Ostomy care Consult o enterstomal therapy and SW Repeat am labs Continue IV ATBX (2) GERALD (acute kidney injury) Current Visit: Yes Status: Acute 50 ml estimated BL during surgery. Pt was noted to be in trendelenberg for an extended period. Suspect GERALD will resolve quickly. he is making urine per lópez. Will bolus 1L wide open, then 1L Ns over 2 hours, then resume maintenance fluids at 140 ml/hr. Hourly I&O Repeat am labs Hold ARBs and HCTZ (3) Morbid obesity with BMI of 45.0-49.9, adult Current Visit: Yes Status: Acute Office standing scale weight 01/05/2019 341.0 lbs. BMI 46.24 daily standing scale weight Standing scale ONLY (4) DVT prophylaxis Current Visit: No Status: Acute (5) HTN (hypertension) Current Visit: Yes Status: Chronic Continue to closely monitor continue home meds Qualifiers: Hypertension type: essential hypertension Qualified Code(s): I10 - Essential (primary) hypertension (6) Elevated glucose Current Visit: Yes Status: Acute Glucose 01/18/2019 187 Add Q6H SSI Average since 07/2018 124 Check hgb A1C Subjective Narrative: Kushal is drowsy but arousable. He reports "other than having another bag I am good." States pain is controlled. Denies nausea or vomiting Objective Vital Signs - Last 8 Hours Temp Pulse Resp BP Pulse Ox 01/18/19 10:17 98.3 F 99 18 113/74 93 01/18/19 06:40 97.4 F L 98 20 128/76 93 Intake and Output 01/17/19 01/18/19 01/18/19 23:59 07:59 15:59 Intake Total 200 / 220 1825 / 3300 1475 / 3300 Output Total 50 / 50 555 / 1385 830 / 1385 Balance 150 / 170 1270 / 1915 645 / 1915 Intake: IV Fluids 200 / 220 1825 / 3300 1475 / 3300 0.9 % Sodium Chloride 1,000 ML 1525 / 3000 1475 / 3000 @ 3750 mls/hr IVC .Q16M [facility] Rx# :[id number] Lactated Ringers 1,000 ML @ 25 200 / 200 mls/hr IVC .Q24H [facility] Rx#: [id number] Ofirmev 1,000 mg/100 ml 1,000 200 / 200 mg In 100 ml @ 400 mls/hr IVPB Q6HR [facility] Rx#:[id number] Zosyn 3.375 GM In 0.9 % Sodium 100 / 100 Chloride (Mini-Bag +) 100 ML @ 25 mls/hr IVPB Q8HR [facility] Rx#: [id number] Oral 0 / 0 0 / 0 Output: Urine 150 / 150 Estimated Blood Loss 50 / 50 Catheter 500 / 1075 575 / 1075 Gastric Drainage 0 / 100 100 / 100 Wound Drainage 55 / 60 5 / 60 Right Lower Abdomen 55 / 60 5 / 60 Other: Weight 153.2 kg Blood Glucose* 176 174 Patient Weight 01/18/19 23:59 Weight 153.2 kg - General physical appearance no distress, no pain, obese - ENT normal nares (NG secured), atraumatic, normocephalic - Neck Neck exam: trachea midline - Respiratory other (decreased but clear breath sounds) - Cardiovascular Cardiovascular exam: Present: distant heart sounds - Abdomen Abdomen: Present: soft, tender (expected postoperative), wound (stoma right abdomen is pink and moist. LETICIA drain site is unremarkable, SS output (maroon)). Absent: bowel sounds present Hernia: none - Incision Incision: Present: clean and dry, intact - Integumentary no rash - Neurologic normal sensation - Musculoskeletal normal posture - Psychiatric oriented to time, oriented to person, oriented to place - Labs 01/18/19 05:52 01/18/19 05:52 Diabetes panel 01/18/19 Range/Units 05:52 Sodium 138 (136-145) mEq/L Potassium 4.8 (3.5-5.1) mEq/L Chloride 104 (98-107) mEq/L Carbon Dioxide 21 L (23-29) mEq/L BUN 22 H (6-20) mg/dL Creatinine 1.62 H (0.70-1.30) mg/dL Glucose 187 H (70-105) mg/dL Calcium 8.7 (8.6-10.3) mg/dL Calcium panel 01/18/19 Range/Units 05:52 Calcium 8.7 (8.6-10.3) mg/dL Phosphorus 4.3 (2.7-4.5) mg/dL Pituitary panel 01/18/19 Range/Units 05:52 Sodium 138 (136-145) mEq/L Potassium 4.8 (3.5-5.1) mEq/L Chloride 104 (98-107) mEq/L Carbon Dioxide 21 L (23-29) mEq/L BUN 22 H (6-20) mg/dL Creatinine 1.62 H (0.70-1.30) mg/dL Glucose 187 H (70-105) mg/dL Calcium 8.7 (8.6-10.3) mg/dL Adrenal panel 01/18/19 Range/Units 05:52 Sodium 138 (136-145) mEq/L Potassium 4.8 (3.5-5.1) mEq/L Chloride 104 (98-107) mEq/L Carbon Dioxide 21 L (23-29) mEq/L BUN 22 H (6-20) mg/dL Creatinine 1.62 H (0.70-1.30) mg/dL Glucose 187 H (70-105) mg/dL Calcium 8.7 (8.6-10.3) mg/dL Consult Discharge Plan - Plan Referrals: Tamiko Louis MD [Partnered Physician] - 02/02/19 10:05 am Demi Rogers CNP [Primary Care Provider] - <Tamiko Louis - Last Filed: 01/19/19 20:16> Date of Encounter: 01/18/19 - Assessment and Plan (1) Status post Radha's procedure Current Visit: Yes Status: Chronic pod 1 radha reversal, loop ileostomy pain control OOB to chair heparin sq gi/dvt prophylaxis IS, pulmonary toilet npo ice chips, popcicles ngt liws HOB 30 degrees ok for home meds, clamp 30 minutes aftewards cont abx (2) Perforation of intestine due to diverticulitis of gastrointestinal tract Current Visit: No Status: Resolved (3) HTN (hypertension) Current Visit: Yes Status: Chronic continue home meds/clamp ngt 30 minutes monitor Qualifiers: Hypertension type: essential hypertension Qualified Code(s): I10 - Essential (primary) hypertension (4) Obesity Current Visit: No Status: Chronic Qualifiers: Obesity type: due to excess calories Obesity classification: adult class 3 (BMI >= 40) Serious obesity comorbidity presence: with serious comorbidity Body mass index: BMI 45.0-49.9 Qualified Code(s): E66.01 - Morbid (severe) obesity due to excess calories; Z68.42 - Body mass index (BMI) 45.0-49.9, adult (5) DVT prophylaxis Current Visit: No Status: Acute Subjective Patient reports: no new complaints, still having pain, voiding w/o difficulty (lópez in place), no flatus, no bowel movement, afebrile Objective Vital Signs - Last 8 Hours Temp Pulse Resp BP Pulse Ox 01/19/19 20:07 98.9 F 84 17 173/89 94 01/19/19 13:54 98.1 F 84 17 149/88 98 Intake and Output 01/19/19 01/19/19 01/19/19 07:59 15:59 23:59 Intake Total 1300 / 1500 200 / 1500 Output Total 610 / 2570 1560 / 2570 400 / 2570 Balance 690 / -1070 -1360 / -1070 -400 / -1070 Intake: IV Fluids 1300 / 1500 200 / 1500 0.9 % Sodium Chloride 1,000 ML 1000 / 1000 @ 140 mls/hr IVC .Q7H9M [facility] Rx# :[id number] Ofirmev 1,000 mg/100 ml 1,000 200 / 300 100 / 300 mg In 100 ml @ 400 mls/hr IVPB Q6HR [facility] Rx#:[id number] Zosyn 3.375 GM In 0.9 % Sodium 100 / 200 100 / 200 Chloride (Mini-Bag +) 100 ML @ 25 mls/hr IVPB Q8HR [facility] Rx#: [id number] Oral 0 / 0 Output: Urine 50 / 450 400 / 450 Stool 300 / 300 Catheter 250 / 1250 1000 / 1250 Gastric Drainage 350 / 550 200 / 550 Wound Drainage Right Lower Abdomen Other: Meal npo Stool Characteristics [place] Stool Color Brown Yellow Blood Glucose* 111 98 91 - General physical appearance well nourished, no distress, no pain - Eyes PERRL, normal ocular movement - ENT normal mucosa, normocephalic - Respiratory normal expansion, clear to auscultation - Cardiovascular Cardiovascular exam: Present: RRR - Abdomen Abdomen: Present: soft, tender, wound. Absent: bowel sounds present - Incision Incision: Present: clean and dry, intact - Genitourinary normal penis with no external lesions (lópez) - Integumentary no rash - Neurologic CN 2-12 grossly intact, normal sensation - Musculoskeletal normal posture - Psychiatric oriented to time, oriented to person, oriented to place - Labs 01/19/19 06:36 01/19/19 06:36 Diabetes panel 01/19/19 Range/Units 06:36 Sodium 143 (136-145) mEq/L Potassium 4.4 (3.5-5.1) mEq/L Chloride 110 H (98-107) mEq/L Carbon Dioxide 21 L (23-29) mEq/L BUN 20 (6-20) mg/dL Creatinine 1.16 (0.70-1.30) mg/dL Glucose 124 H (70-105) mg/dL Calcium 8.4 L (8.6-10.3) mg/dL Calcium panel 01/19/19 Range/Units 06:36 Calcium 8.4 L (8.6-10.3) mg/dL Phosphorus 2.4 L (2.7-4.5) mg/dL Pituitary panel 01/19/19 Range/Units 06:36 Sodium 143 (136-145) mEq/L Potassium 4.4 (3.5-5.1) mEq/L Chloride 110 H (98-107) mEq/L Carbon Dioxide 21 L (23-29) mEq/L BUN 20 (6-20) mg/dL Creatinine 1.16 (0.70-1.30) mg/dL Glucose 124 H (70-105) mg/dL Calcium 8.4 L (8.6-10.3) mg/dL Adrenal panel 01/19/19 Range/Units 06:36 Sodium 143 (136-145) mEq/L Potassium 4.4 (3.5-5.1) mEq/L Chloride 110 H (98-107) mEq/L Carbon Dioxide 21 L (23-29) mEq/L BUN 20 (6-20) mg/dL Creatinine 1.16 (0.70-1.30) mg/dL Glucose 124 H (70-105) mg/dL Calcium 8.4 L (8.6-10.3) mg/dL - Attending Attestation I have personally performed a face to face evaluation on this patient. I have reviewed and agree with the care plan. History and Exam by me shows:
[2019-01-18] MEDS ORDERED: D5% in Water 1,000 ML IVC PRN (10:58)
[2019-01-18] MEDS ORDERED: *HR* Dextrose 50 % in Water (Syg) 50 ML SYRINGE IVP PRN (10:58)
[2019-01-18] MEDS ORDERED: Dextrose Gel 15 GM/37.5 ML TUBE PO PRN ×2 (10:58)
[2019-01-18] MEDS: Insulin LISPRO 300 UNITS/3 ML VIAL SQ SCH ×3 (11:38→23:33)
[2019-01-18 12:00] LABS: Estimated Average Glucose 137 mg/dl
[2019-01-19] MEDS: Insulin LISPRO 300 UNITS/3 ML VIAL SQ SCH ×3 (06:30→18:48)
[2019-01-19] MEDS: Acetaminophen IV 1,000 MG/100 ML INFUS..BTL IVPB SCH ×3 (06:36→18:48)
[2019-01-19] MEDS: *HR* Heparin 5,000 UNIT/ML VIAL SQ SCH ×3 (06:36→20:51)
[2019-01-19] MEDS: Pantoprazole 40 MG VIAL IVP SCH (06:36)
[2019-01-19 06:58] LABS: Basophils % 0.2 %; Eosinophils % 0.1 %; Hematocrit 36.7 % (37.5-50.1); Hemoglobin 11.8 g/dL (12.9-16.9); Immature Granulocytes % 0.6 % (0-4); Lymphocytes # 1.6 K/mcL (0.6-4.6); Lymphocytes % 10.1 %; Mean Corpuscular HGB Conc 32.2 g/dL (31.6-35.5); Mean Corpuscular Hemoglobin 26.8 pg (28.0-33.3); Mean Corpuscular Volume 83.4 fL (83.0-100.0); Mean Platelet Volume 10.6 fL (9.4-12.4); Monocytes # 1.6 K/mcL (0.0-1.3); Monocytes % 10.1 %; Neutrophils # 12.6 K/mcL (1.6-8.9); Platelet Count 253 K/mcL (140-400); Red Cell Distribution Width 17.1 % (11.5-14.5); Segmented Neutrophils % 78.9 %
[2019-01-19 07:18] LABS: BUN/Creatinine Ratio 17 (6-26); Blood Urea Nitrogen 20 mg/dL (6-20); Calcium 8.4 mg/dL (8.6-10.3); Carbon Dioxide 21 mEq/L (23-29); Chloride 110 mEq/L (98-107); Glucose 124 mg/dL (70-105); Magnesium 2.1 mg/dL (1.6-2.6); Osmolality,Calculated 300 (280-300); Phosphorous 2.4 mg/dL (2.7-4.5); Potassium 4.4 mEq/L (3.5-5.1); Sodium 143 mEq/L (136-145); eGFR For African Americans > 60 (> 60); eGFR For Non-African Americans > 60 (> 60)
[2019-01-19] MEDS: amLODIPine 5 MG TABLET PO SCH (08:10)
[2019-01-19] MEDS: Piperacillin/Tazobactam 3.375 GM in 0.9 % Sodium Chloride Mini Bag 100 ML IVPB SCH ×2 (08:10→16:50)
[2019-01-19] MEDS: BuPROPion SR (12 HR) 150 MG TABLET PO SCH (08:10)
[2019-01-19] MEDS: 0.9 % Sodium Chloride 1,000 ML IVC SCH ×2 (08:11→16:51)
--- NOTE | 2019-01-19 12:06 | General Surgery Progress Note ---
<Sahra Roberts - Last Filed: 01/19/19 12:58> Date of Encounter: 01/19/19 Time of Encounter: 12:00 - Assessment and Plan (1) History of colostomy reversal Current Visit: Yes Status: Acute POD #2 Coello reversal, diverting loop ileostomy with Dr. Louis Remove NG tube Trial clear liquids Continue IV fluids- decreae to 120ml/hour Continue IV antibiotics Supportive care and pain control Daily incision care Continue LETICIA drain Remove lópez catheter Continue strict I&Os IS every 1 hour while awake Continue GI/DVT prophylaxis Ambulate hallways TID with assistance Repeat am labs- CBC, BMP (2) GERALD (acute kidney injury) Current Visit: Yes Status: Acute Improved Cr- 1.62>1.16 Continue IV fluids- will decrease to 120ml/hr Remove lópez catheter Strict I&Os Avoid nephrotoxic medications Repeat am labs (3) HTN (hypertension) Current Visit: Yes Status: Chronic Elevated today but patient refused his PO medications (states he can't swallow with NG tube) Resume medications with removal of NG tube Continue to monitor and adjust as necessary Qualifiers: Hypertension type: essential hypertension Qualified Code(s): I10 - [place] l (primary) hypertension (4) Morbid obesity with BMI of 45.0-49.9, adult Current Visit: Yes Status: Chronic (5) DVT prophylaxis Current Visit: No Status: Acute Heparin 5000 units subcutaneous every 8 [address] hallways 3 times a day with assistance EPCDs to bilateral lower extremities for DVT prophylaxis Subjective Patient reports: no new complaints, feels better, still having pain, pain is less, bowel movement (via ileostomy), afebrile Objective Vital Signs - Last 8 Hours Temp Pulse Resp BP Pulse Ox 01/19/19 10:06 97.9 F 79 17 156/90 97 01/19/19 07:09 98.0 F 66 17 153/81 92 Intake and Output 01/18/19 01/19/19 01/19/19 23:59 07:59 15:59 Intake Total 2274 / 6874 1300 / 1300 Output Total 1100 / 2645 610 / 1560 950 / 1560 Balance 1174 / 4229 690 / -260 -950 / -260 Intake: IV Fluids 2200 / 6800 1300 / 1300 0.9 % Sodium Chloride 1,000 ML 2000 / 2000 1000 / 1000 @ 140 mls/hr IVC .Q7H9M [facility] Rx# :[id number] Ofirmev 1,000 mg/100 ml 1,000 100 / 500 200 / 200 mg In 100 ml @ 400 mls/hr IVPB Q6HR [facility] Rx#:[id number] Zosyn 3.375 GM In 0.9 % Sodium 100 / 300 100 / 100 Chloride (Mini-Bag +) 100 ML @ 25 mls/hr IVPB Q8HR [facility] Rx#: [id number] Oral 74 / 74 0 / 0 Output: Urine 50 / 50 Catheter 700 / 1875 250 / 950 700 / 950 Gastric Drainage 400 / 550 350 / 550 200 / 550 Wound Drainage 0 / 70 10 Right Lower Abdomen 0 70 10 Other: Meal Dinner NPO Percent of Meal Consumed 0% Blood Glucose* 115 111 98 - General physical appearance well developed, well nourished, no distress - Eyes normal ocular movement - ENT dry mucosa, atraumatic, normocephalic - Neck Neck exam: trachea midline - Respiratory normal respiratory effort, clear to auscultation - Abdomen Abdomen: Present: bowel sounds present, soft, tender (Expected postoperative tenderness), wound (Ileostomy with thin, bilious drainage (approximately 300ml noted)) - Incision Incision: Present: clean and dry, intact - Genitourinary other (López catheter to straight drain with clear, yellow urine) - Neurologic CN 2-12 grossly intact - Psychiatric oriented to time, oriented to person, oriented to place, speech is normal, memory intact - Labs 01/19/19 06:36 01/19/19 06:36 Diabetes panel 01/19/19 Range/Units 06:36 Sodium 143 (136-145) mEq/L Potassium 4.4 (3.5-5.1) mEq/L Chloride 110 H (98-107) mEq/L Carbon Dioxide 21 L (23-29) mEq/L BUN 20 (6-20) mg/dL Creatinine 1.16 (0.70-1.30) mg/dL Glucose 124 H (70-105) mg/dL Calcium 8.4 L (8.6-10.3) mg/dL Calcium panel 01/19/19 Range/Units 06:36 Calcium 8.4 L (8.6-10.3) mg/dL Phosphorus 2.4 L (2.7-4.5) mg/dL Pituitary panel 01/19/19 Range/Units 06:36 Sodium 143 (136-145) mEq/L Potassium 4.4 (3.5-5.1) mEq/L Chloride 110 H (98-107) mEq/L Carbon Dioxide 21 L (23-29) mEq/L BUN 20 (6-20) mg/dL Creatinine 1.16 (0.70-1.30) mg/dL Glucose 124 H (70-105) mg/dL Calcium 8.4 L (8.6-10.3) mg/dL Adrenal panel 01/19/19 Range/Units 06:36 Sodium 143 (136-145) mEq/L Potassium 4.4 (3.5-5.1) mEq/L Chloride 110 H (98-107) mEq/L Carbon Dioxide 21 L (23-29) mEq/L BUN 20 (6-20) mg/dL Creatinine 1.16 (0.70-1.30) mg/dL Glucose 124 H (70-105) mg/dL Calcium 8.4 L (8.6-10.3) mg/dL Consult Discharge Plan - Plan Referrals: Tamiko Louis MD [Partnered Physician] - 02/02/19 10:05 am Demi Rogers CNP [Primary Care Provider] - - Attending Attestation For this encounter, I have reviewed the DATA ANALYTICS ANALYST or PA documentation, treatment plan, and medical decision making; and I have had face to face time with this patient. <Tamiko Louis - Last Filed: 01/19/19 20:09> Date of Encounter: 01/19/19 - Assessment and Plan (1) Status post Silvia's procedure Current Visit: Yes Status: Chronic pod 2 Silvia reversal, loop ileostomy cont abx dc ngt start clears prn pain control OOB to chair IS/pulmonary toilet DC lópez trend labs elevated wbc trending down - monitor, no bandemia continue home po meds ileostomy care/teaching daily dressing changes (2) Perforation of intestine due to diverticulitis of gastrointestinal tract Current Visit: No Status: Resolved (3) HTN (hypertension) Current Visit: Yes Status: Chronic Qualifiers: Hypertension type: essential hypertension Qualified Code(s): I10 - Essential (primary) hypertension (4) Obesity Current Visit: No Status: Chronic Qualifiers: Obesity type: due to excess calories Obesity classification: adult class 3 (BMI >= 40) Serious obesity comorbidity presence: with serious comorbidity Body mass index: BMI 45.0-49.9 Qualified Code(s): E66.01 - Morbid (severe) obesity due to excess calories; Z68.42 - Body mass index (BMI) 45.0-49.9, adult (5) DVT prophylaxis Current Visit: No Status: Acute Subjective Patient reports: feels better, still having pain, pain is less, no flatus, bowel movement, afebrile Objective Vital Signs - Last 8 Hours Temp Pulse Resp BP Pulse Ox 01/19/19 13:54 98.1 F 84 17 149/88 98 Intake and Output 01/19/19 01/19/19 01/19/19 07:59 15:59 23:59 Intake Total 1300 / 1500 200 / 1500 Output Total 610 / 2170 1560 / 2170 Balance 690 / -670 -1360 / -670 Intake: IV Fluids 1300 / 1500 200 / 1500 0.9 % Sodium Chloride 1,000 ML 1000 / 1000 @ 140 mls/hr IVC .Q7H9M [facility] Rx# :[id number] Ofirmev 1,000 mg/100 ml 1,000 200 / 300 100 / 300 mg In 100 ml @ 400 mls/hr IVPB Q6HR [facility] Rx#:[id number] Zosyn 3.375 GM In 0.9 % Sodium 100 / 200 100 / 200 Chloride (Mini-Bag +) 100 ML @ 25 mls/hr IVPB Q8HR [facility] Rx#: [id number] Oral 0 / 0 Output: Urine 50 / 50 Stool 300 / 300 Catheter 250 / 1250 1000 / 1250 Gastric Drainage 350 / 550 200 / 550 Wound Drainage 20 10 20 Right Lower Abdomen Other: Meal npo Stool Characteristics [place] Stool Color Brown Yellow Blood Glucose* 111 98 91 - General physical appearance well developed, well nourished, no distress - Eyes normal ocular movement - ENT normal mucosa, normocephalic - Neck Neck exam: trachea midline - Respiratory normal expansion, normal respiratory effort, clear to auscultation - Cardiovascular Cardiovascular exam: Present: RRR - Abdomen Abdomen: Present: bowel sounds present, soft, tender, wound - Incision Incision: Present: clean and dry, intact (packed at previous colostomy site) - Integumentary no rash - Neurologic CN 2-12 grossly intact - Musculoskeletal normal posture - Psychiatric oriented to time, oriented to person, oriented to place, speech is normal, memory intact - Labs 01/19/19 06:36 01/19/19 06:36 Diabetes panel 01/19/19 Range/Units 06:36 Sodium 143 (136-145) mEq/L Potassium 4.4 (3.5-5.1) mEq/L Chloride 110 H (98-107) mEq/L Carbon Dioxide 21 L (23-29) mEq/L BUN 20 (6-20) mg/dL Creatinine 1.16 (0.70-1.30) mg/dL Glucose 124 H (70-105) mg/dL Calcium 8.4 L (8.6-10.3) mg/dL Calcium panel 01/19/19 Range/Units 06:36 Calcium 8.4 L (8.6-10.3) mg/dL Phosphorus 2.4 L (2.7-4.5) mg/dL Pituitary panel 01/19/19 Range/Units 06:36 Sodium 143 (136-145) mEq/L Potassium 4.4 (3.5-5.1) mEq/L Chloride 110 H (98-107) mEq/L Carbon Dioxide 21 L (23-29) mEq/L BUN 20 (6-20) mg/dL Creatinine 1.16 (0.70-1.30) mg/dL Glucose 124 H (70-105) mg/dL Calcium 8.4 L (8.6-10.3) mg/dL Adrenal panel 01/19/19 Range/Units 06:36 Sodium 143 (136-145) mEq/L Potassium 4.4 (3.5-5.1) mEq/L Chloride 110 H (98-107) mEq/L Carbon Dioxide 21 L (23-29) mEq/L BUN 20 (6-20) mg/dL Creatinine 1.16 (0.70-1.30) mg/dL Glucose 124 H (70-105) mg/dL Calcium 8.4 L (8.6-10.3) mg/dL - Attending Attestation I have personally performed a face to face evaluation on this patient. I have reviewed and agree with the care plan. History and Exam by me shows:
[2019-01-20] MEDS: Piperacillin/Tazobactam 3.375 GM in 0.9 % Sodium Chloride Mini Bag 100 ML IVPB SCH ×3 (00:11→15:39)
[2019-01-20] MEDS: Acetaminophen IV 1,000 MG/100 ML INFUS..BTL IVPB SCH ×2 (00:12→05:57)
[2019-01-20] MEDS: Insulin LISPRO 300 UNITS/3 ML VIAL SQ SCH ×2 (00:21→06:45)
[2019-01-20] MEDS: 0.9 % Sodium Chloride 1,000 ML IVC SCH (01:38)
[2019-01-20] MEDS: *HR* OxyCODONE/APAP 5/325 TABLET PO PRN ×2 (01:55→07:57)
[2019-01-20] MEDS: Pantoprazole 40 MG VIAL IVP SCH (05:58)
[2019-01-20] MEDS: *HR* Heparin 5,000 UNIT/ML VIAL SQ SCH ×3 (05:58→21:58)
[2019-01-20 06:20] LABS: Basophils % 0.3 %; Eosinophils # 0.3 K/mcL (0.0-0.6); Eosinophils % 2.4 %; Hematocrit 35.3 % (37.5-50.1); Hemoglobin 11.2 g/dL (12.9-16.9); Immature Granulocytes % 0.5 % (0-4); Lymphocytes # 2.1 K/mcL (0.6-4.6); Mean Corpuscular HGB Conc 31.7 g/dL (31.6-35.5); Mean Corpuscular Hemoglobin 26.9 pg (28.0-33.3); Mean Corpuscular Volume 84.7 fL (83.0-100.0); Mean Platelet Volume 10.2 fL (9.4-12.4); Monocytes % 8.8 %; Platelet Count 257 K/mcL (140-400); Red Blood Count 4.17 M/mcL (4.19-5.50); Red Cell Distribution Width 16.4 % (11.5-14.5); White Blood Count 11.5 K/mcL (4.3-11.1)
[2019-01-20 06:33] LABS: BUN/Creatinine Ratio 12 (6-26); Blood Urea Nitrogen 13 mg/dL (6-20); Calcium 8.5 mg/dL (8.6-10.3); Carbon Dioxide 25 mEq/L (23-29); Chloride 105 mEq/L (98-107); Glucose 92 mg/dL (70-105); Osmolality,Calculated 292 (280-300); Potassium 3.6 mEq/L (3.5-5.1); Sodium 141 mEq/L (136-145); eGFR For African Americans > 60 (> 60); eGFR For Non-African Americans > 60 (> 60)
[2019-01-20] MEDS: amLODIPine 5 MG TABLET PO SCH (07:44)
[2019-01-20] MEDS: BuPROPion SR (12 HR) 150 MG TABLET PO SCH (07:45)
[2019-01-20] MEDS ORDERED: *HR* OxyCODONE Immed Rel 5 MG TABLET PO PRN (10:39)
--- NOTE | 2019-01-20 10:59 | General Surgery Progress Note ---
<Griselda Wright - Last Filed: 01/20/19 10:53> Date of Encounter: 01/20/19 Time of Encounter: 09:00 - Assessment and Plan (1) Status post Silvia's procedure Current Visit: Yes Status: Chronic Date of procedure: 01/17/19 Pre-op diagnosis: Perforated diverticulitis, Silvia Post-op diagnosis: same Procedure: Slivia reversal, diverting loop ileostomy Complications: none immediate Anesthesia: GETA, local Local Anesthetics: 0.5% Sensorcaine HCL SubQ (cc) Surgeon: Tamiko Louis POD #1 as above. Pathology noes acute diverticulitis with mucus extravasation into the muscularis propria and active chronic inflammation of the serosa. Muc osal-cutaneous junction with acute inflammation. Anastomotic rings with no specific pathologic change. Plan: Continue supportive care and discomfort management while awaiting full return of bowel function scheduled PO acetaminophen and PRN roxicodone Continue G.I. and DVT prophylaxis protonix and heparin Incentive spirometry 10 times every hour while awake Out of bed to chair TID; do not offer meal trays while in bed Orders placed for standing scale weight when he gets OOB to chair for lunch Apply ice 20 minutes on 20 minutes off as needed Full liquid diet with dietary supplement Ostomy care Continue IV ATBX (will need 14 days course of cipro/flag at d/c) Repeat am labs (2) GERALD (acute kidney injury) Current Visit: Yes Status: Resolved Creatinine has returned to baseline. Will stop IVF as he is tolerating diet. Resume home meds (3) Morbid obesity with BMI of 45.0-49.9, adult Current Visit: Yes Status: Chronic Office standing scale weight 01/05/2019 341.0 lbs. BMI 46.24 daily standing scale weight (has not been completed despite orders. per record, bed scales used) Standing scale ONLY (4) DVT prophylaxis Current Visit: Yes Status: Acute hep Sub Q Q8H (5) HTN (hypertension) Current Visit: Yes Status: Chronic Continue to closely monitor continue home meds Qualifiers: Hypertension type: essential hypertension Qualified Code(s): I10 - Essential (primary) hypertension (6) Elevated glucose Current Visit: Yes Status: Acute Glucose 01/18/2019 187 Add Q6H SSI Average since 07/2018 124 HgbA1C 6.4 See Metabolic syndrome for plan (7) Metabolic syndrome Current Visit: Yes Status: Acute Pt with mobid obesity, HTN, and hgba1c of 6.4. Discussed at length with patient the risk of diabetes development and sequela of diabetes. Offered behavior changes such as diabetic diet and exercise alone vs behavior changes and starting metformin. Pt would like to begin metformin in addition to behavior changes as he has "seen what happens with diabetes and I don't want it." He will need close follow-up with his PCP and could greatly benefit from MNT and weight loss program as outpatient. Subjective Patient reports: no new complaints, feels better, still having pain, pain is less, tolerating liquids well, voiding w/o difficulty, flatus, bowel movement (per ileostomy), afebrile Objective Vital Signs - Last 8 Hours Temp Pulse Resp BP Pulse Ox 01/20/19 06:46 98.1 F 73 18 159/97 97 01/20/19 03:37 97.4 F L 79 14 172/104 96 Intake and Output 01/19/19 01/20/19 01/20/19 23:59 07:59 15:59 Intake Total 200 / 1700 1300 / 1300 Output Total 405 / 2575 1706 / 1706 Balance -205 / -875 -406 / -406 Intake: IV Fluids 200 / 1700 1300 / 1300 0.9 % Sodium Chloride 1,000 ML 1000 / 1000 @ 120 mls/hr IVC .Q8H20M [facility] Rx #:[id number] Ofirmev 1,000 mg/100 ml 1,000 100 / 400 200 / 200 mg In 100 ml @ 400 mls/hr IVPB Q6HR [facility] Rx#:[id number] Zosyn 3.375 GM In 0.9 % Sodium 100 / 300 100 / 100 Chloride (Mini-Bag +) 100 ML @ 25 mls/hr IVPB Q8HR [facility] Rx#: [id number] Oral 0 / 0 Output: Urine 400 / 450 1450 / 1450 Stool 250 / 250 Wound Drainage Right Lower Abdomen Other: Blood Glucose* 91 - General physical appearance no distress, no pain, obese - ENT atraumatic, normocephalic - Neck Neck exam: trachea midline - Respiratory other (decreased resp effort and breath sounds) - Cardiovascular Cardiovascular exam: Present: RRR - Abdomen Abdomen: Present: bowel sounds present, soft, tender (expected postoperative), wound (SS drainage per LETICIA. Stoma is pink and moist with output.) - Incision Incision: Present: clean and dry, intact (overall in tact, packing is noted in the previous colostomy site for [place] purposes only) - Integumentary no rash - Neurologic normal sensation - Musculoskeletal normal posture - Psychiatric oriented to time, oriented to person, oriented to place, speech is normal, memory intact - Labs 01/20/19 05:57 01/20/19 05:57 Diabetes panel 01/20/19 Range/Units 05:57 Sodium 141 (136-145) mEq/L Potassium 3.6 (3.5-5.1) mEq/L Chloride 105 (98-107) mEq/L Carbon Dioxide 25 (23-29) mEq/L BUN 13 (6-20) mg/dL Creatinine 1.12 (0.70-1.30) mg/dL Glucose 92 (70-105) mg/dL Calcium 8.5 L (8.6-10.3) mg/dL Calcium panel 01/20/19 01/20/19 Range/Units 05:57 05:57 Calcium 8.5 L (8.6-10.3) mg/dL Phosphorus 3.1 (2.7-4.5) mg/dL Pituitary panel 01/20/19 Range/Units 05:57 Sodium 141 (136-145) mEq/L Potassium 3.6 (3.5-5.1) mEq/L Chloride 105 (98-107) mEq/L Carbon Dioxide 25 (23-29) mEq/L BUN 13 (6-20) mg/dL Creatinine 1.12 (0.70-1.30) mg/dL Glucose 92 (70-105) mg/dL Calcium 8.5 L (8.6-10.3) mg/dL Adrenal panel 01/20/19 Range/Units 05:57 Sodium 141 (136-145) mEq/L Potassium 3.6 (3.5-5.1) mEq/L Chloride 105 (98-107) mEq/L Carbon Dioxide 25 (23-29) mEq/L BUN 13 (6-20) mg/dL Creatinine 1.12 (0.70-1.30) mg/dL Glucose 92 (70-105) mg/dL Calcium 8.5 L (8.6-10.3) mg/dL Consult Discharge Plan - Plan Referrals: Tamiko Louis MD [Partnered Physician] - 02/02/19 10:05 am Demi Rogers CNP [Primary Care Provider] - <Tamiko Louis - Last Filed: 01/20/19 14:59> Date of Encounter: 01/20/19 - Assessment and Plan (1) Status post Silvia's procedure Current Visit: Yes Status: Chronic pod 3 pathology noted - upon DC cipro/flagyl for 2 weeks trend labs, wbc continuing to decline no fevers, vitals stable ambulate advance diet as tolerate gi/dvt prophylaxis ileostomy teaching daily wound care (2) Perforation of intestine due to diverticulitis of gastrointestinal tract Current Visit: No Status: Resolved (3) HTN (hypertension) Current Visit: Yes Status: Chronic Qualifiers: Hypertension type: essential hypertension Qualified Code(s): I10 - Essential (primary) hypertension (4) Obesity Current Visit: No Status: Chronic Qualifiers: Obesity type: due to excess calories Obesity classification: adult class 3 (BMI >= 40) Serious obesity comorbidity presence: with serious comorbidity Body mass index: BMI 45.0-49.9 Qualified Code(s): E66.01 - Morbid (severe) obesity due to excess calories; Z68.42 - Body mass index (BMI) 45.0-49.9, adult (5) DVT prophylaxis Current Visit: Yes Status: Acute (6) Elevated glucose Current Visit: Yes Status: Acute (7) GERALD (acute kidney injury) Current Visit: Yes Status: Resolved Subjective Patient reports: feels better, still having pain, pain is less, tolerating liquids well, voiding w/o difficulty, bowel movement, afebrile Objective Vital Signs - Last 8 Hours Temp Pulse Resp BP Pulse Ox 01/20/19 14:28 98.1 F 79 16 159/91 96 01/20/19 11:12 98.2 F 71 16 167/100 97 Intake and Output 01/19/19 01/20/19 01/20/19 23:59 07:59 15:59 Intake Total 200 / 1700 1300 / 1300 Output Total 405 / 2575 1705 / 2005 / 2005 Balance -205 / -875 -406 / -706 -300 / -706 Intake: IV Fluids 200 / 1700 1300 / 1300 0.9 % Sodium Chloride 1,000 ML 1000 / 1000 @ 120 mls/hr IVC .Q8H20M [facility] Rx #:[id number] Ofirmev 1,000 mg/100 ml 1,000 100 / 400 200 / 200 mg In 100 ml @ 400 mls/hr IVPB Q6HR [facility] Rx#:[id number] Zosyn 3.375 GM In 0.9 % Sodium 100 / 300 100 / 100 Chloride (Mini-Bag +) 100 ML @ 25 mls/hr IVPB Q8HR [facility] Rx#: [id number] Oral 0 / 0 Output: Urine 400 / 450 1450 / 1750 300 / 1750 Stool 250 / 250 Wound Drainage Right Lower Abdomen Other: # Voids 1 Blood Glucose* 91 96 - General physical appearance well nourished, no distress, no pain, obese - Eyes normal ocular movement - ENT normal mucosa, normocephalic - Neck Neck exam: trachea midline - Respiratory normal expansion, normal respiratory effort - Cardiovascular Cardiovascular exam: Present: RRR - Abdomen Abdomen: Present: bowel sounds present, soft, tender, wound - Incision Incision: Present: clean and dry, intact - Integumentary no rash, no growths - Neurologic normal sensation - Musculoskeletal normal posture - Psychiatric oriented to time, oriented to person, oriented to place, speech is normal, memory intact - Labs 01/20/19 05:57 01/20/19 05:57 Diabetes panel 01/20/19 Range/Units 05:57 Sodium 141 (136-145) mEq/L Potassium 3.6 (3.5-5.1) mEq/L Chloride 105 (98-107) mEq/L Carbon Dioxide 25 (23-29) mEq/L BUN 13 (6-20) mg/dL Creatinine 1.12 (0.70-1.30) mg/dL Glucose 92 (70-105) mg/dL Calcium 8.5 L (8.6-10.3) mg/dL Calcium panel 01/20/19 01/20/19 Range/Units 05:57 05:57 Calcium 8.5 L (8.6-10.3) mg/dL Phosphorus 3.1 (2.7-4.5) mg/dL Pituitary panel 01/20/19 Range/Units 05:57 Sodium 141 (136-145) mEq/L Potassium 3.6 (3.5-5.1) mEq/L Chloride 105 (98-107) mEq/L Carbon Dioxide 25 (23-29) mEq/L BUN 13 (6-20) mg/dL Creatinine 1.12 (0.70-1.30) mg/dL Glucose 92 (70-105) mg/dL Calcium 8.5 L (8.6-10.3) mg/dL Adrenal panel 01/20/19 Range/Units 05:57 Sodium 141 (136-145) mEq/L Potassium 3.6 (3.5-5.1) mEq/L Chloride 105 (98-107) mEq/L Carbon Dioxide 25 (23-29) mEq/L BUN 13 (6-20) mg/dL Creatinine 1.12 (0.70-1.30) mg/dL Glucose 92 (70-105) mg/dL Calcium 8.5 L (8.6-10.3) mg/dL - Attending Attestation I have personally performed a face to face evaluation on this patient. I have reviewed and agree with the care plan. History and Exam by me shows:
[2019-01-20] MEDS: *HR* Metformin 500 MG TABLET PO SCH (11:47)
[2019-01-21] MEDS: Piperacillin/Tazobactam 3.375 GM in 0.9 % Sodium Chloride Mini Bag 100 ML IVPB SCH ×2 (00:22→09:26)
[2019-01-21 04:52] LABS: Basophils % 0.3 %; Eosinophils # 0.5 K/mcL (0.0-0.6); Eosinophils % 5.6 %; Hematocrit 36.2 % (37.5-50.1); Hemoglobin 11.6 g/dL (12.9-16.9); Immature Granulocytes % 0.4 % (0-4); Lymphocytes # 1.7 K/mcL (0.6-4.6); Lymphocytes % 18.1 %; Mean Corpuscular Hemoglobin 26.4 pg (28.0-33.3); Mean Corpuscular Volume 82.5 fL (83.0-100.0); Mean Platelet Volume 9.7 fL (9.4-12.4); Monocytes # 0.8 K/mcL (0.0-1.3); Monocytes % 8.2 %; Neutrophils # 6.3 K/mcL (1.6-8.9); Platelet Count 267 K/mcL (140-400); Red Blood Count 4.39 M/mcL (4.19-5.50); Red Cell Distribution Width 15.6 % (11.5-14.5); Segmented Neutrophils % 67.4 %; White Blood Count 9.4 K/mcL (4.3-11.1)
[2019-01-21 05:12] LABS: BUN/Creatinine Ratio 13 (6-26); Blood Urea Nitrogen 13 mg/dL (6-20); Calcium 8.9 mg/dL (8.6-10.3); Carbon Dioxide 24 mEq/L (23-29); Chloride 103 mEq/L (98-107); Glucose 106 mg/dL (70-105); Osmolality,Calculated 285 (280-300); Potassium 3.4 mEq/L (3.5-5.1); Sodium 137 mEq/L (136-145); eGFR For African Americans > 60 (> 60); eGFR For Non-African Americans > 60 (> 60)
[2019-01-21] MEDS: *HR* Heparin 5,000 UNIT/ML VIAL SQ SCH ×2 (06:00→15:14)
[2019-01-21] MEDS: BuPROPion SR (12 HR) 150 MG TABLET PO SCH (09:24)
[2019-01-21] MEDS: *HR* Metformin 500 MG TABLET PO SCH (09:24)
[2019-01-21] MEDS: amLODIPine 5 MG TABLET PO SCH (09:24)
--- NOTE | 2019-01-21 14:13 | Discharge Summary ---
Date of Encounter: 01/21/19 Time of Encounter: 15:55 - Discharge Diagnosis (1) Status post Silvia's procedure Priority: Primary Status: Chronic (2) GERALD (acute kidney injury) Priority: Secondary Status: Resolved (3) Morbid obesity with BMI of 45.0-49.9, adult Priority: Secondary Status: Chronic (4) DVT prophylaxis Priority: Secondary Status: Acute (5) HTN (hypertension) Priority: Secondary Status: Chronic Qualifiers: Hypertension type: essential hypertension Qualified Code(s): I10 - Essential (primary) hypertension (6) Elevated glucose Priority: Secondary Status: Acute (7) Metabolic syndrome Priority: Secondary Status: Acute General Surgery Exam Initial Vital Signs Temp Pulse Resp BP Pulse Ox 98.3 F 96 18 136/90 95 01/17/19 11:36 01/17/19 11:36 01/17/19 11:36 01/17/19 11:36 01/17/19 11:36 - General physical appearance well nourished, no distress, moderate pain (with activity), obese - Neck trachea midline - Respiratory normal expansion, normal respiratory effort - Cardiovascular Cardiovascular exam: Present: RRR - Abdomen Abdomen general surgery: Present: bowel sounds present, soft, tender (expected postoperative), wound (stoma is pink and moist. ) - Incision Incision: Present: clean and dry (ovderall. Packing is noted in the previous colostomy site for wicking purpsoes only) - Integumentary Integumentary general surgery: Present: warm and dry - Hospital Course Hospital course: Mr. 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 The rectum and and anastomotic readings pathology noted acute diverticulitis with mucus extravasation. He remained on Zosyn while in the hospital and will be discharged on 2 weeks of Cipro Flagyl. His hospital course was complicated by an acute kidney injury which was treated with fluid resuscitation and his creatinine returned to baseline. He was also noted during this hospital admission to have elevated blood glucose. Hemoglobin A-1 C was performed which was 6.4. Given his obesity, hypertension, and elevated glucose he was diagnosed with metabolic syndrome. Reviewed at length with the patient the need for weight loss, following a diabetic diet, and increasing activity. Reviewed consideration for starting metformin. The patient elected to start metformin as well as lifestyle changes. He was seen by nutrition during this visit to provided diabetic education. He will be referred to outpatient nutrition for MNT. [facility] is in place for ostomy care, wound packing, and LETICIA care. We will begin discharge planning to home with a follow-up in the office in 7 to 14 days - Time Spent with Patient Total time spent providing and/or coordinating discharge services: Greater than 30 minutes Specific discharge activities: Education regarding metformin, diabetic diet, need for weight management, HHC - Discharge Medications Prescriptions: New Ciprofloxacin [Cipro] 500 mg PO BID 14 Days #28 tablet metroNIDAZOLE [Flagyl] 500 mg PO TID 14 Days #42 tablet metFORMIN [Glucophage] 500 mg PO 0800 #30 tablet Ibuprofen 800 mg PO Q8H PRN #30 tablet PRN Reason: Postsurgical pain OxyCODONE/APAP 5/325 [Percocet 5/325 MG] 1 each PO Q6HR PRN 7 Days #28 tablet PRN Reason: Pain Ondansetron ODT [Zofran ODT] 4 mg SL Q4HR PRN #30 tab.rapdis PRN Reason: Nausea Continued Losartan Potassium [Cozaar] 100 mg PO QAM cloNIDine HCl [CloNIDine HCl] 0.1 mg PO HS PRN MDD BP >160/90 PRN Reason: Blood Pressure - High Triamterene/HCTZ 37.5/25mg [Dyazide] 1 cap PO QAM Amlodipine Besylate 10 mg PO QAM BuPROPion SR (12 HR) [Wellbutrin SR] 150 mg PO QAM Home Medications: Losartan Potassium [Cozaar] 100 mg PO QAM 01/07/17 [History] Triamterene/HCTZ 37.5/25mg [Dyazide] 1 cap PO QAM 01/07/17 [History] cloNIDine HCl [CloNIDine HCl] 0.1 mg PO HS PRN MDD BP >160/90 01/07/17 [History] Amlodipine Besylate 10 mg PO QAM 01/17/19 [History] BuPROPion SR (12 HR) [Wellbutrin SR] 150 mg PO QAM 01/17/19 [History] Ciprofloxacin [Cipro] 500 mg PO BID 14 Days #28 tablet 01/21/19 [Rx] Ibuprofen 800 mg PO Q8H PRN #30 tablet 01/21/19 [Rx] Ondansetron ODT [Zofran ODT] 4 mg SL Q4HR PRN #30 tab.rapdis 01/21/19 [Rx] OxyCODONE/APAP 5/325 [Percocet 5/325 MG] 1 each PO Q6HR PRN 7 Days #28 tablet 01/21/19 [Rx] metFORMIN [Glucophage] 500 mg PO 0800 #30 tablet 01/21/19 [Rx] metroNIDAZOLE [Flagyl] 500 mg PO TID 14 Days #42 tablet 01/21/19 [Rx] Allergies/Adverse Reactions: Allergy/AdvReac Type Severity Reaction Status Date / Time YANA Inhibitors AdvReac THROAT Verified 01/17/19 11:43 ITCH, COUGH codeine AdvReac Vomiting, Verified 01/17/19 11:43 STOMACH PROBLEMS Date of admission: 01/17/19 21:37 Primary care physician: Demi Rogers CNP Consults: 01/18/19 10:43 Consult to Enterostomal Therapist [CONS] Routine Reason for Consult: Previously with colosotmy. Now with diverting ileostomy. Ileostomy education and supplies. Time Notified: 10:44 Call Completed: No 01/18/19 10:44 Consult to Commissioning Manager [CONS] Routine Reason for SW Consult: [facility] for d/c planning. Pt previously with colostomy, this has been taken down. Now has new ileostomy. 01/20/19 09:32 Consult to Nutrition [CONS] Routine Comment: 1800 trell diabetic diet Consulting Provider: NUTRITION Reason for Dietary Consult: Diet Education Other:: has Metabolic syndrome; wants to start diabetic diet and metformin Discharging clinician: Griselda Wright Anticipated date of discharge: 01/21/19 Labs on day of discharge: Labs from last 24 hours 01/21/19 01/21/19 01/20/19 04:25 04:25 16:34 WBC 9.4 RBC 4.39 Hgb 11.6 L Hct 36.2 L MCV 82.5 L MCH 26.4 L MCHC 32.0 RDW 15.6 H Plt Count 267 MPV 9.7 Immature Gran % 0.4 Seg Neutrophils % 67.4 Lymphocytes % 18.1 Monocytes % 8.2 Eosinophils % 5.6 Basophils % 0.3 Neutrophils # 6.3 Lymphocytes # 1.7 Monocytes # 0.8 Eosinophils # 0.5 Basophils # 0.0 Sodium 137 Potassium 3.4 L Chloride 103 Carbon Dioxide 24 BUN 13 Creatinine 1.02 Est GFR ( Amer) > 60 Est GFR (Non-Af Amer) > 60 BUN/Creatinine Ratio 13 Glucose 106 H POC Glucose 109 H Calculated Osmolality 285 Calcium 8.9 01/20/19 11:15 WBC RBC Hgb Hct MCV MCH MCHC RDW Plt Count MPV Immature Gran % Seg Neutrophils % Lymphocytes % Monocytes % Eosinophils % Basophils % Neutrophils # Lymphocytes # Monocytes # Eosinophils # Basophils # Sodium Potassium Chloride Carbon Dioxide BUN Creatinine Est GFR ( Amer) Est GFR (Non-Af Amer) BUN/Creatinine Ratio Glucose POC Glucose 96 Calculated Osmolality Calcium - Patient Status Disposition: Home Health Service Condition: Good Functional capacity at discharge: independent ambulation Overall status at discharge: patient is progressing back to baseline - Discharge Instructions Instructions: Ileostomy Care (DC), Derrick-Christy Drain Care (DC), Meal Planning with Diabetes Exchanges (DC), Acute Wound Care (DC), Metabolic Syndrome X (DC) Follow Up With: Tamiko Louis MD [Partnered Physician] - 02/02/19 10:05 am Demi Rogers CNP [Primary Care Provider] - Additional Instructions: General Surgical Discharge Instructions 1. No pushing, pulling, or lifting greater than 15 lbs for 2-4 weeks (depending upon procedure). 2. You may remove your dressings and shower beginning today, but no tub baths, soaking, or swimming for 2 weeks. 3. No driving for one weeks unless otherwise specified and then you may resume driving when you are off narcotics and are safe to react in a car. 4. Take ibuprofen every 8 hours for discomfort and apply Ice to your abdomen f or 20 minutes every hour you are awake. If this does not relieve discomfort, you may take the as needed Percocet. Eat a small snack with pain medication as this will help reduce the risk of nausea. Take narcotics as directed. Do not take more narcotics then directed and do not share your narcotics with any other person. Do not drink alcohol while on narcotics. You can take the Zofran/ondansetron if needed for nausea or with a dose of narcotics to prevent nausea. 5. Be sure that you are drinking at minimum 64 ounces of water per day. You need to measure the output from your ileostomy. You must take in as much liquid as you lost through the ileostomy the day prior. 6. Report any fevers greater than 100.5F, increase abdominal discomfort, drainage that looks like pus, increased redness or pain at the surgical site, or any vomiting. 7. Report any pain in the calves, shortness of breath, or rapid heartbeat. 8. Follow-up in the office as directed. 9. If you were prescribed antibiotics, do not stop them without talking to your provider. 10. Do not drink alcohol while taking metronidazole. Drinking alcohol while taking metronidazole can result in violent abdominal pain and vomiting. Refrain from alcohol use for 48 hours after completing metronidazole. Wound Care/Daily Dressing Changes 1. Midline Abdomen: Remove dressing. Wash with antibacterial soap. Pat dry. Cover with Abd pad or 4x4s. Tape to Secure (Tape does not need to cover the entire area. Only place enough tape to ensure dressing is in place). 2. Left lateral incision (previous colostomy site): Remove dressing and packing. Wash with antibacterial soap. Pat dry. Repack with 1/4 pain gauze (FOR WICKING PURPOSES ONLY. DO NOT PACK INTO THE ABDOMEN). Cover with a dry dressing. Tape to secure. Both outer dressings can be changed as needed if soiled. Daily LETICIA Drain Care: 1. Remove dressings. Shower with antibacterial soap. 2. Do not let the LETICIA drain dangle from your body. Use the safety pin to secure to your clothing. Secure the LETICIA to a lanyard or other type of long necklace when you shower. 3. Replace drain gauze and taped to secure. 4. Record the output from your LETICIA bulb (at least once daily) on the form provided and bring this with you to your follow-up appointment. 5. Keep the LETICIA drain to suction (squeeze the bulb and replace the cap while squeezing). 6. Strip the lines twice daily (hold onto the line as close to the body as you can, then with the other hand push the contents of the line into the LETICIA bulb). Although you do not have the diagnosis of diabetes at this time, your hemoglobin A-1 C is only one 10th of a point away from diabetes. As we discussed, it is recommended that you start metformin 500 mg daily and follow and 1800 trell diabetic diet. You are also strongly recommended to walk at least 30 minutes 5 days per week. You do not need to check your blood glucose at this time but it is a possibility in the future. You will need to follow closely with your primary care provider. - Diet and Activity Activity: increase activity as tolerated, return to work once cleared by your PCP/specialist
[2019-01-21 14:35] VITALS: BP 166/107
--- NOTE | 2019-01-21 14:46 | Physician Discharge Referral ---
Home Health/Hosp Referral Info Transfer to: Home Health Attending Provider: Dr. Tamiko Louis Provider in Charge Post Discharge: Other (same) - Diagnosis (1) Status post Silvia's procedure Priority: Primary Status: Chronic (2) GERALD (acute kidney injury) Priority: Secondary Status: Resolved (3) Morbid obesity with BMI of 45.0-49.9, adult Priority: Secondary Status: Chronic (4) DVT prophylaxis Priority: Secondary Status: Acute (5) HTN (hypertension) Priority: Secondary Status: Chronic (6) Elevated glucose Priority: Secondary Status: Acute (7) Metabolic syndrome Priority: Secondary Status: Acute - Respiratory Orders Smoking Cessation: Smoking cessation has been advised. For more information, call the [employer] Quit Line at 4-834-WPOKNOW. - Dressing/Wound Care Type of Dressing/Treatments w/Frequency: see below - Diet/Nutrition Diet/Nutrition: List: 1800 calorie diabetic diet - Activity Activity Orders: Up ad emmett Activity: List: Walk at least 30 minutes daily. 5 days per week - Services Needed Following services are medically necessary services: Shelter Care Orders: General Surgical Discharge Instructions 1. No pushing, pulling, or lifting greater than 15 lbs for 2-4 weeks (depending upon procedure). 2. You may remove your dressings and shower beginning today, but no tub baths, soaking, or swimming for 2 weeks. 3. No driving for one weeks unless otherwise specified and then you may resume driving when you are off narcotics and are safe to react in a car. 4. Take ibuprofen every 8 hours for discomfort and apply Ice to your abdomen for 20 minutes every hour you are awake. If this does not relieve discomfort, you may take the as needed Percocet. Eat a small snack with pain medication as this will help reduce the risk of nausea. Take narcotics as directed. Do not take more narcotics then directed and do not share your narcotics with any other person. Do not drink alcohol while on narcotics. You can take the Zofran/ondansetron if needed for nausea or with a dose of narcotics to prevent nausea. 5. Be sure that you are drinking at minimum 64 ounces of water per day. You need to measure the output from your ileostomy. You must take in as much liquid as you lost through the ileostomy the day prior. 6. Report any fevers greater than 100.5F, increase abdominal discomfort, drainage that looks like pus, increased redness or pain at the surgical site, or any vomiting. 7. Report any pain in the calves, shortness of breath, or rapid heartbeat. 8. Follow-up in the office as directed. 9. If you were prescribed antibiotics, do not stop them without talking to your provider. 10. Do not drink alcohol while taking metronidazole. Drinking alcohol while taking metronidazole can result in violent abdominal pain and vomiting. Refrain from alcohol use for 48 hours after completing metronidazole. Wound Care/Daily Dressing Changes 1. Midline Abdomen: Remove dressing. Wash with antibacterial soap. Pat dry. Cover with Abd pad or 4x4s. Tape to Secure (Tape does not need to cover the entire area. Only place enough tape to ensure dressing is in place). 2. Left lateral incision (previous colostomy site): Remove dressing and packing. Wash with antibacterial soap. Pat dry. Repack with 1/4 pain gauze (FOR WICKING PURPOSES ONLY. DO NOT PACK INTO THE ABDOMEN). Cover with a dry dressing. Tape to secure. Both outer dressings can be changed as needed if soiled. Daily LETICIA Drain Care: 1. Remove dressings. Shower with antibacterial soap. 2. Do not let the LETICIA drain dangle from your body. Use the safety pin to secure to your clothing. Secure the LETICIA to a lanyard or other type of long necklace when you shower. 3. Replace drain gauze and taped to secure. 4. Record the output from your LETICIA bulb (at least once daily) on the form provided and bring this with you to your follow-up appointment. 5. Keep the LETICIA drain to suction (squeeze the bulb and replace the cap while squeezing). 6. Strip the lines twice daily (hold onto the line as close to the body as you can, then with the other hand push the contents of the line into the LETICIA bulb). Although you do not have the diagnosis of diabetes at this time, your hemoglobin A-1 C is only one 10th of a point away from diabetes. As we discu ssed, it is recommended that you start metformin 500 mg daily and follow and 1800 trell diabetic diet. You are also strongly recommended to walk at least 30 minutes 5 days per week. You do not need to check your blood glucose at this time but it is a possibility in the future. You will need to follow closely with your primary care provider. - Transfer Medications Prescriptions: Ciprofloxacin [Cipro] 500 mg PO BID 14 Days #28 tablet metroNIDAZOLE [Flagyl] 500 mg PO TID 14 Days #42 tablet metFORMIN [Glucophage] 500 mg PO 0800 #30 tablet Ibuprofen 800 mg PO Q8H PRN #30 tablet PRN Reason: Postsurgical pain OxyCODONE/APAP 5/325 [Percocet 5/325 MG] 1 each PO Q6HR PRN 7 Days #28 tablet PRN Reason: Pain Ondansetron ODT [Zofran ODT] 4 mg SL Q4HR PRN #30 tab.rapdis PRN Reason: Nausea Home Medications: Losartan Potassium [Cozaar] 100 mg PO QAM 01/07/17 [History] Triamterene/HCTZ 37.5/25mg [Dyazide] 1 cap PO QAM 01/07/17 [History] cloNIDine HCl [CloNIDine HCl] 0.1 mg PO HS PRN MDD BP >160/90 01/07/17 [History] Amlodipine Besylate 10 mg PO QAM 01/17/19 [History] BuPROPion SR (12 HR) [Wellbutrin SR] 150 mg PO QAM 01/17/19 [History] Ciprofloxacin [Cipro] 500 mg PO BID 14 Days #28 tablet 01/21/19 [Rx] Ibuprofen 800 mg PO Q8H PRN #30 tablet 01/21/19 [Rx] Ondansetron ODT [Zofran ODT] 4 mg SL Q4HR PRN #30 tab.rapdis 01/21/19 [Rx] OxyCODONE/APAP 5/325 [Percocet 5/325 MG] 1 each PO Q6HR PRN 7 Days #28 tablet 01/21/19 [Rx] metFORMIN [Glucophage] 500 mg PO 0800 #30 tablet 01/21/19 [Rx] metroNIDAZOLE [Flagyl] 500 mg PO TID 14 Days #42 tablet 01/21/19 [Rx] Allergies/Adverse Reactions: Allergy/AdvReac Type Severity Reaction Status Date / Time YANA Inhibitors AdvReac THROAT Verified 01/17/19 11:43 ITCH, COUGH codeine AdvReac Vomiting, Verified 01/17/19 11:43 STOMACH PROBLEMS Certification: Further, I certify that my clinical findings support that this patient is homebound (i.e. absences from home require considerable and taxing effort and are for medical reasons or druze services or infrequently or short duration when for other reasons) because: Homebound Reason: Post-surgery restriction and or conditions limit ability to leave home, Leaving home requires considerable and taxing effort due to condition Attestation: My signature below is to certify that this patient is under my care and that I, or nurse practitioner, or a physician's bilingual medical assistant working with me, has a [id number] encounter with this patient.
== END 2019-01-21 21:10 | disposition home health service (06) | DRG 330 ==
LOC: SAMDAY 11:06 → 3ANU 21:37
PROVIDERS: ADMIT Surgery; ATTEND Surgery

== ENCOUNTER 2019-04-04 08:31 | Inpatient (IN) ==
[2019-04-04] MEDS ORDERED: *HR* FentaNYL (PF) 100 MCG/2 ML VIAL ONE ×2 (08:45→11:11)
[2019-04-04] MEDS ORDERED: *HR* Rocuronium Bromide 50 MG/5 ML VIAL ONE ×2 (08:45→14:11)
[2019-04-04] MEDS ORDERED: Lidocaine -MPF 2% 2 ML VIAL ONE (08:45)
[2019-04-04] MEDS ORDERED: Lidocaine HCL 4 ML Topical Solution (Laryng-O-Jet Kit Sterile Pak) TP ONE (08:45)
[2019-04-04] MEDS ORDERED: *HR* Midazolam HCl 2 MG/2 ML VIAL ONE (08:45)
[2019-04-04] MEDS ORDERED: Ondansetron 4 MG/2 ML VIAL ONE ×2 (08:45→12:35)
[2019-04-04] MEDS ORDERED: *HR* Propofol 200 MG/20 ML VIAL IVP ONE ×2 (08:47→11:15)
[2019-04-04] MEDS ORDERED: *HR* Succinylcholine 200 MG/10 ML VIAL IVP ONE (08:47)
[2019-04-04] MEDS ORDERED: cefOXitin 2,000 MG in Water for inj. (sterile) 20 ML IVP ONE (08:57)
[2019-04-04] MEDS ORDERED: Ringers Solution, Lactated 1,000 ML IVC SCH (09:00)
[2019-04-04] MEDS ORDERED: Famotidine 20 MG/2 ML VIAL IVP ONE (09:28)
[2019-04-04] MEDS ORDERED: traMADol 50 MG TABLET PO ONE (09:29)
[2019-04-04] MEDS ORDERED: Pregabalin 75 MG CAPSULE PO ONE (09:29)
[2019-04-04] MEDS ORDERED: Acetaminophen IV 1,000 MG/100 ML INFUS..BTL IVPB ONE (09:31)
[2019-04-04] MEDS ORDERED: *HR* Promethazine 25 MG/ML VIAL IVP PRN ×2 (09:32→13:51)
[2019-04-04] MEDS ORDERED: *HR* HYDROmorphone 2 MG TABLET PO PRN (09:32)
[2019-04-04] MEDS ORDERED: *HR* HYDROmorphone (PF) 1 MG/ML SYRINGE IVP PRN (09:32)
[2019-04-04] MEDS ORDERED: *HR* OxyCODONE Immed Rel 5 MG TABLET PO PRN (09:32)
[2019-04-04] MEDS ORDERED: Celecoxib 200 MG CAPSULE PO ONE (09:32)
[2019-04-04] MEDS ORDERED: *HR* Labetalol 20 MG/4 ML SYRINGE IVP PRN (09:32)
[2019-04-04] MEDS ORDERED: EPHEDrine 50 MG/ML VIAL ONE (11:23)
[2019-04-04] MEDS ORDERED: *HR* PHENYLEPHRINE 1,000 MCG/10 ML SYRINGE IVP ONE (11:43)
[2019-04-04] MEDS ORDERED: Neostigmine Methylsulfate 3 MG/3 ML SYRINGE ONE (12:30)
[2019-04-04] MEDS ORDERED: D5% in Water 1,000 ML IVC PRN (13:51)
[2019-04-04] MEDS ORDERED: *HR* OxyCODONE/APAP 5/325 TABLET PO PRN (13:51)
[2019-04-04] MEDS ORDERED: Dextrose Gel 15 GM/37.5 ML TUBE PO PRN ×2 (13:51)
[2019-04-04] MEDS ORDERED: cloNIDine HCl 0.1 MG TABLET PO PRN (13:51)
[2019-04-04] MEDS ORDERED: *HR* Metoprolol 5 MG/5 ML VIAL IVP PRN (13:51)
[2019-04-04] MEDS ORDERED: Ondansetron 4 MG/2 ML VIAL IVP PRN (13:51)
[2019-04-04] MEDS ORDERED: Naloxone 0.4 MG/ML INJ IVP PRN (13:51)
[2019-04-04] MEDS ORDERED: *HR* Dextrose 50 % in Water (Syg) 50 ML SYRINGE IVP PRN (13:51)
[2019-04-04] MEDS ORDERED: Dexamethasone 4 MG/ML VIAL ONE (14:07)
[2019-04-04] MEDS: 0.9 % Sodium Chloride 1,000 ML IVC SCH ×2 (14:39→22:59)
[2019-04-04] MEDS: Piperacillin/Tazobactam 3.375 GM in 0.9 % Sodium Chloride Mini Bag 100 ML IVPB SCH (17:39)
[2019-04-04] MEDS: Ketorolac 30 MG/ML VIAL IVP SCH (17:40)
[2019-04-04] MEDS: Insulin LISPRO 300 UNITS/3 ML VIAL SQ SCH (18:55)
[2019-04-05] MEDS: Ketorolac 30 MG/ML VIAL IVP SCH ×3 (00:12→12:30)
[2019-04-05] MEDS: Piperacillin/Tazobactam 3.375 GM in 0.9 % Sodium Chloride Mini Bag 100 ML IVPB SCH ×2 (00:13→10:00)
[2019-04-05 04:56] LABS: Basophils % 0.3 %; Eosinophils # 0.2 K/mcL (0.0-0.6); Eosinophils % 2.1 %; Hematocrit 39.9 % (37.5-50.1); Hemoglobin 12.3 g/dL (12.9-16.9); Immature Granulocytes % 0.4 % (0-4); Lymphocytes # 1.2 K/mcL (0.6-4.6); Lymphocytes % 10.1 %; Mean Corpuscular HGB Conc 30.8 g/dL (31.6-35.5); Mean Corpuscular Hemoglobin 26.6 pg (28.0-33.3); Mean Corpuscular Volume 86.2 fL (83.0-100.0); Mean Platelet Volume 10.2 fL (9.4-12.4); Monocytes # 1.2 K/mcL (0.0-1.3); Monocytes % 10.7 %; Neutrophils # 8.9 K/mcL (1.6-8.9); Platelet Count 228 K/mcL (140-400); Red Blood Count 4.63 M/mcL (4.19-5.50); Red Cell Distribution Width 15.2 % (11.5-14.5); Segmented Neutrophils % 76.4 %; White Blood Count 11.6 K/mcL (4.3-11.1)
[2019-04-05 05:18] LABS: BUN/Creatinine Ratio 14 (6-26); Blood Urea Nitrogen 16 mg/dL (6-20); Calcium 8.4 mg/dL (8.6-10.3); Carbon Dioxide 23 mEq/L (23-29); Chloride 107 mEq/L (98-107); Glucose 108 mg/dL (70-105); Osmolality,Calculated 288 (280-300); Sodium 138 mEq/L (136-145); eGFR For African Americans > 60 (> 60); eGFR For Non-African Americans > 60 (> 60)
[2019-04-05] MEDS: Insulin LISPRO 300 UNITS/3 ML VIAL SQ SCH ×2 (09:50→12:36)
[2019-04-05] MEDS: BuPROPion SR (12 HR) 150 MG TABLET PO SCH (10:01)
[2019-04-05] MEDS: Pantoprazole 40 MG VIAL IVP SCH (10:01)
[2019-04-05] MEDS: 0.9 % Sodium Chloride 1,000 ML IVC SCH ×2 (10:02→19:08)
[2019-04-05] MEDS: amLODIPine 5 MG TABLET PO SCH (10:03)
[2019-04-05] MEDS: Acetaminophen IV 1,000 MG/100 ML INFUS..BTL IVPB SCH (13:36)
[2019-04-05] MEDS: *HR* Heparin 5,000 UNIT/ML VIAL SQ SCH ×2 (13:40→22:10)
[2019-04-06] MEDS: Acetaminophen IV 1,000 MG/100 ML INFUS..BTL IVPB SCH ×4 (00:42→11:27)
[2019-04-06 02:12] LABS: Basophils % 0.2 %; Eosinophils # 0.2 K/mcL (0.0-0.6); Hematocrit 37.8 % (37.5-50.1); Hemoglobin 12.2 g/dL (12.9-16.9); Immature Granulocytes % 0.3 % (0-4); Lymphocytes # 1.2 K/mcL (0.6-4.6); Lymphocytes % 10.1 %; Mean Corpuscular HGB Conc 32.3 g/dL (31.6-35.5); Mean Corpuscular Hemoglobin 27.2 pg (28.0-33.3); Mean Corpuscular Volume 84.2 fL (83.0-100.0); Mean Platelet Volume 10.4 fL (9.4-12.4); Monocytes # 1.4 K/mcL (0.0-1.3); Monocytes % 11.4 %; Neutrophils # 9.2 K/mcL (1.6-8.9); Platelet Count 228 K/mcL (140-400); Red Blood Count 4.49 M/mcL (4.19-5.50); Red Cell Distribution Width 14.7 % (11.5-14.5); White Blood Count 12.2 K/mcL (4.3-11.1)
[2019-04-06 02:33] LABS: BUN/Creatinine Ratio 11 (6-26); Blood Urea Nitrogen 12 mg/dL (6-20); Calcium 8.6 mg/dL (8.6-10.3); Carbon Dioxide 24 mEq/L (23-29); Chloride 104 mEq/L (98-107); Glucose 118 mg/dL (70-105); Magnesium 1.8 mg/dL (1.6-2.6); Osmolality,Calculated 285 (280-300); Phosphorous 2.7 mg/dL (2.7-4.5); Potassium 3.5 mEq/L (3.5-5.1); Sodium 137 mEq/L (136-145); eGFR For African Americans > 60 (> 60); eGFR For Non-African Americans > 60 (> 60)
[2019-04-06] MEDS: 0.9 % Sodium Chloride 1,000 ML IVC SCH ×3 (05:11→11:27)
[2019-04-06] MEDS: *HR* Heparin 5,000 UNIT/ML VIAL SQ SCH ×3 (06:18→21:50)
[2019-04-06] MEDS: Pantoprazole 40 MG VIAL IVP SCH (08:43)
[2019-04-06] MEDS: BuPROPion SR (12 HR) 150 MG TABLET PO SCH (08:44)
[2019-04-06] MEDS: amLODIPine 5 MG TABLET PO SCH (08:44)
[2019-04-06] MEDS: Piperacillin/Tazobactam 3.375 GM in 0.9 % Sodium Chloride Mini Bag 100 ML IVPB SCH ×2 (08:55→17:14)
[2019-04-06] MEDS: *HR* Metformin 500 MG TABLET PO SCH (11:00)
[2019-04-06] MEDS: *HR* OxyCODONE/APAP 5/325 TABLET PO PRN (21:58)
[2019-04-07] MEDS: Piperacillin/Tazobactam 3.375 GM in 0.9 % Sodium Chloride Mini Bag 100 ML IVPB SCH ×2 (01:18→08:05)
[2019-04-07] MEDS: 0.9 % Sodium Chloride 1,000 ML IVC SCH (06:05)
[2019-04-07 06:46] LABS: Basophils % 0.1 %; Eosinophils # 0.4 K/mcL (0.0-0.6); Hematocrit 36.7 % (37.5-50.1); Hemoglobin 12.2 g/dL (12.9-16.9); Immature Granulocytes % 0.4 % (0-4); Lymphocytes # 1.3 K/mcL (0.6-4.6); Lymphocytes % 11.6 %; Mean Corpuscular HGB Conc 33.2 g/dL (31.6-35.5); Mean Corpuscular Hemoglobin 27.5 pg (28.0-33.3); Mean Corpuscular Volume 82.7 fL (83.0-100.0); Mean Platelet Volume 10.6 fL (9.4-12.4); Monocytes % 9.1 %; Neutrophils # 8.3 K/mcL (1.6-8.9); Platelet Count 232 K/mcL (140-400); Red Blood Count 4.44 M/mcL (4.19-5.50); Red Cell Distribution Width 14.4 % (11.5-14.5); Segmented Neutrophils % 74.8 %
[2019-04-07] MEDS: *HR* Heparin 5,000 UNIT/ML VIAL SQ SCH (07:07)
[2019-04-07 07:21] VITALS: BP 128/89
[2019-04-07] MEDS: BuPROPion SR (12 HR) 150 MG TABLET PO SCH (08:06)
[2019-04-07] MEDS: Pantoprazole 40 MG VIAL IVP SCH (08:06)
[2019-04-07] MEDS: *HR* Metformin 500 MG TABLET PO SCH (08:07)
[2019-04-07] MEDS: *HR* OxyCODONE/APAP 5/325 TABLET PO PRN (08:07)
[2019-04-07] MEDS: amLODIPine 5 MG TABLET PO SCH (08:07)
[2019-04-07] MEDS ORDERED: FLU Vac QV 19-20 (6Month+)/PF 0.5 ML SYRINGE IM ONE (11:15)
== END 2019-04-07 12:46 | disposition home health service (06) | DRG 330 ==
LOC: SAMDAY 08:31 → 3ANU 13:40
PROVIDERS: ADMIT Surgery; ATTEND Surgery

== ENCOUNTER 2020-04-25 06:06 | Observation (INO) ==
[2020-04-25] MEDS: Ringers Solution, Lactated 1,000 ML IVC SCH ×5 (06:39→10:51)
[2020-04-25] MEDS ORDERED: Ondansetron 4 MG/2 ML VIAL IVP PRN ×2 (06:56→13:18)
[2020-04-25] MEDS ORDERED: *HR* HYDROmorphone PF 0.5 MG/0.5 ML SYRINGE IVP PRN (06:56)
[2020-04-25] MEDS ORDERED: *HR* OxyCODONE Immed Rel 5 MG TABLET PO PRN (06:56)
[2020-04-25] MEDS ORDERED: *HR* Labetalol 20 MG/4 ML SYRINGE IVP PRN (06:56)
[2020-04-25] MEDS ORDERED: *HR* FentaNYL (PF) 100 MCG/2 ML VIAL ONE (07:14)
[2020-04-25] MEDS ORDERED: Lidocaine -MPF 2% 2 ML VIAL ONE (07:14)
[2020-04-25] MEDS ORDERED: *HR* Rocuronium Bromide 50 MG/5 ML VIAL ONE (07:14)
[2020-04-25] MEDS ORDERED: Ketorolac 30 MG/ML VIAL ONE (07:14)
[2020-04-25] MEDS ORDERED: Dexamethasone 4 MG/ML VIAL ONE (07:14)
[2020-04-25] MEDS ORDERED: Ondansetron 4 MG/2 ML VIAL ONE (07:14)
[2020-04-25] MEDS ORDERED: *HR* Succinylcholine 200 MG/10 ML VIAL IVP ONE (07:14)
[2020-04-25] MEDS ORDERED: *HR* Propofol 200 MG/20 ML VIAL IVP ONE ×2 (07:15→08:09)
[2020-04-25] MEDS ORDERED: *HR* Midazolam HCl 2 MG/2 ML VIAL ONE (07:15)
[2020-04-25] MEDS ORDERED: Lidocaine HCL 4 ML Topical Solution (Laryng-O-Jet Kit Sterile Pak) TP ONE (07:15)
[2020-04-25] MEDS ORDERED: ceFAZolin 1,000 MG, Sodium Chloride IRRigation 1,000 ML IR ONE (07:45)
[2020-04-25] MEDS: CeFAZolin Syr 3,000MG/30 ML 3,000 MG/30 ML SYRINGE IVPB ONE ×2 (07:55→12:14)
[2020-04-25] MEDS ORDERED: *HR* PHENYLEPHRINE 1,000 MCG/10 ML SYRINGE IVP ONE ×2 (08:28→12:46)
[2020-04-25] MEDS ORDERED: EPHEDrine 50 MG/ML VIAL ONE (08:37)
[2020-04-25] MEDS ORDERED: Albumin Human 5% 25.0 GM/500 ML IV.SOLN ONE (08:57)
[2020-04-25] MEDS ORDERED: *HR* Phenylephrine 10 MG/ML VIAL ONE (09:36)
[2020-04-25] MEDS ORDERED: *HR* HYDROMORPHONE 2 MG/ML VIAL ONE (10:31)
[2020-04-25] MEDS ORDERED: Furosemide 20 MG/2 ML VIAL IVP STA (12:06)
[2020-04-25] MEDS ORDERED: *HR* Promethazine 25 MG/ML VIAL IM PRN (13:18)
[2020-04-25] MEDS ORDERED: Morphine Sulfate 2 MG/ML SYRINGE IVP PRN (13:26)
[2020-04-25] MEDS: carvediloL 6.25 MG TABLET PO SCH (17:37)
[2020-04-25] MEDS: 0.9 % Sodium Chloride 1,000 ML IVC SCH (17:45)
[2020-04-25] MEDS: *HR* Heparin 5,000 UNIT/ML VIAL SQ SCH ×2 (17:46→22:21)
[2020-04-25] MEDS: Ketorolac 30 MG/ML VIAL IVP SCH (17:59)
[2020-04-25] MEDS: Famotidine 20 MG/2 ML VIAL IVP SCH (17:59)
[2020-04-25] MEDS: Acetaminophen IV 1,000 MG/100 ML INFUS..BTL IVPB SCH (18:44)
[2020-04-25] MEDS: *HR* OxyCODONE Immed Rel 5 MG TABLET PO PRN (20:09)
[2020-04-26] MEDS: Acetaminophen IV 1,000 MG/100 ML INFUS..BTL IVPB SCH ×4 (01:17→17:20)
[2020-04-26] MEDS: Ketorolac 30 MG/ML VIAL IVP SCH ×4 (01:17→16:58)
[2020-04-26 05:09] LABS: Basophils % 0.1 %; Hematocrit 40.5 % (37.5-50.1); Hemoglobin 12.4 g/dL (12.9-16.9); Immature Granulocytes % 0.4 % (0-4); Lymphocytes # 1.1 K/mcL (0.6-4.6); Lymphocytes % 5.5 %; Mean Corpuscular HGB Conc 30.6 g/dL (31.6-35.5); Mean Corpuscular Hemoglobin 26.3 pg (28.0-33.3); Mean Corpuscular Volume 85.8 fL (83.0-100.0); Mean Platelet Volume 10.4 fL (9.4-12.4); Monocytes # 2.2 K/mcL (0.0-1.3); Monocytes % 11.6 %; Neutrophils # 15.8 K/mcL (1.6-8.9); Platelet Count 317 K/mcL (140-400); Red Blood Count 4.72 M/mcL (4.19-5.50); Red Cell Distribution Width 16.1 % (11.5-14.5); Segmented Neutrophils % 82.4 %; White Blood Count 19.1 K/mcL (4.3-11.1)
[2020-04-26 05:14] LABS: Calcium 8.9 mg/dL (8.6-10.3); Potassium 4.7 mEq/L (3.5-5.1)
[2020-04-26] MEDS: *HR* Heparin 5,000 UNIT/ML VIAL SQ SCH ×3 (06:00→20:39)
[2020-04-26] MEDS: Famotidine 20 MG/2 ML VIAL IVP SCH ×2 (06:00→16:58)
[2020-04-26] MEDS ORDERED: 0.9 % Sodium Chloride 1,000 ML IV ONE (07:01)
[2020-04-26] MEDS: carvediloL 6.25 MG TABLET PO SCH ×2 (08:51→16:59)
[2020-04-26] MEDS: 0.9 % Sodium Chloride 1,000 ML IVC SCH ×2 (12:34→20:39)
[2020-04-26] MEDS: *HR* OxyCODONE Immed Rel 5 MG TABLET PO PRN (20:38)
[2020-04-27] MEDS: Acetaminophen IV 1,000 MG/100 ML INFUS..BTL IVPB SCH ×2 (00:19→06:43)
[2020-04-27] MEDS: Ketorolac 30 MG/ML VIAL IVP SCH ×3 (00:19→13:10)
[2020-04-27 06:39] LABS: Hematocrit 32.3 % (37.5-50.1); Mean Corpuscular Hemoglobin 25.7 pg (28.0-33.3); Mean Corpuscular Volume 85.7 fL (83.0-100.0); Mean Platelet Volume 10.6 fL (9.4-12.4); Platelet Count 270 K/mcL (140-400); Red Blood Count 3.77 M/mcL (4.19-5.50); Red Cell Distribution Width 16.3 % (11.5-14.5); White Blood Count 14.1 K/mcL (4.3-11.1)
[2020-04-27 06:41] LABS: Hemoglobin 9.7 g/dL (12.9-16.9)
[2020-04-27] MEDS: *HR* Heparin 5,000 UNIT/ML VIAL SQ SCH ×2 (06:44→13:10)
[2020-04-27] MEDS: Famotidine 20 MG/2 ML VIAL IVP SCH (06:44)
[2020-04-27 07:16] VITALS: BP 144/90
[2020-04-27] MEDS: carvediloL 6.25 MG TABLET PO SCH (10:27)
[2020-04-27] MEDS ORDERED: Acetaminophen IV 1,000 MG/100 ML INFUS..BTL IVPB SCH (12:45)
[2020-04-27] MEDS ORDERED: FLU Vac QV 20-21 (6Month+)/PF 0.5 ML SYRINGE IM ONE (14:47)
== END 2020-04-27 15:39 | disposition home or self-care (01) ==
LOC: 3ANU 06:06 → SAMDAY 06:06 → 3ANU 15:09
PROVIDERS: ADMIT Surgery; ATTEND Surgery

== ENCOUNTER 2020-12-11 20:02 | Observation (INO) ==
[2020-12-11] MEDS ORDERED: Isovue-370 500 ML BOTTLE IVP ONE (21:02)
[2020-12-11 21:10] LABS: Basophils % 0.3 %; Eosinophils # 0.4 K/mcL (0.0-0.6); Hematocrit 43.2 % (37.5-50.1); Hemoglobin 13.4 g/dL (12.9-16.9); Immature Granulocytes % 0.4 % (0-4); Lymphocytes # 2.4 K/mcL (0.6-4.6); Lymphocytes % 19.1 %; Mean Corpuscular Volume 80.7 fL (83.0-100.0); Mean Platelet Volume 9.6 fL (9.4-12.4); Monocytes % 7.7 %; Neutrophils # 8.9 K/mcL (1.6-8.9); Platelet Count 304 K/mcL (140-400); Red Blood Count 5.35 M/mcL (4.19-5.50); Red Cell Distribution Width 17.6 % (11.5-14.5); Segmented Neutrophils % 69.5 %; White Blood Count 12.8 K/mcL (4.3-11.1)
[2020-12-11 21:35] LABS: BUN/Creatinine Ratio 11 (6-26); Blood Urea Nitrogen 18 mg/dL (6-20); Calcium 9.3 mg/dL (8.6-10.3); Carbon Dioxide 24 mEq/L (23-29); Chloride 106 mEq/L (98-107); Glucose 129 mg/dL (70-105); Osmolality,Calculated 296 (280-300); Potassium 3.8 mEq/L (3.5-5.1); Sodium 141 mEq/L (136-145); Troponin I < 0.03 ng/mL (< 0.04); eGFR For African Americans 56 (> 60); eGFR For Non-African Americans 46 (> 60)
[2020-12-11] MEDS ORDERED: 0.9 % Sodium Chloride 1,000 ML IVC ONE (21:46)
[2020-12-11] MEDS ORDERED: Aspirin 325 MG TABLET PO ONE (22:43)
[2020-12-12] MEDS ORDERED: Naloxone 0.4 MG/ML INJ IVP PRN (03:49)
[2020-12-12] MEDS ORDERED: Ondansetron 4 MG/2 ML VIAL IVP PRN (03:49)
[2020-12-12] MEDS ORDERED: Melatonin 3 MG TABLET PO PRN (03:49)
[2020-12-12] MEDS ORDERED: Acetaminophen 325 MG TABLET PO PRN (03:49)
[2020-12-12 06:07] LABS: Basophils % 0.2 %; Eosinophils # 0.4 K/mcL (0.0-0.6); Eosinophils % 3.9 %; Hematocrit 41.7 % (37.5-50.1); Hemoglobin 13.1 g/dL (12.9-16.9); Immature Granulocytes % 0.3 % (0-4); Lymphocytes # 2.4 K/mcL (0.6-4.6); Lymphocytes % 22.9 %; Mean Corpuscular HGB Conc 31.4 g/dL (31.6-35.5); Mean Corpuscular Hemoglobin 25.9 pg (28.0-33.3); Mean Corpuscular Volume 82.4 fL (83.0-100.0); Mean Platelet Volume 9.8 fL (9.4-12.4); Monocytes # 0.9 K/mcL (0.0-1.3); Monocytes % 8.9 %; Neutrophils # 6.6 K/mcL (1.6-8.9); Platelet Count 298 K/mcL (140-400); Red Blood Count 5.06 M/mcL (4.19-5.50); Red Cell Distribution Width 18.3 % (11.5-14.5); Segmented Neutrophils % 63.8 %; White Blood Count 10.3 K/mcL (4.3-11.1)
[2020-12-12 06:26] LABS: Alanine Aminotransferase 36 Units/L (7-52); Albumin 3.9 g/dL (3.5-5.7); Albumin/Globulin Ratio 1.3 (1.1-2.2); Alkaline Phosphatase 68 Units/L (34-104); Aspartate Amino Transferase 23 Units/L (13-39); BUN/Creatinine Ratio 14 (6-26); Bilirubin,Total 0.6 mg/dL (0.3-1.0); Blood Urea Nitrogen 17 mg/dL (6-20); Calcium 8.9 mg/dL (8.6-10.3); Carbon Dioxide 26 mEq/L (23-29); Chloride 107 mEq/L (98-107); Globulin 2.9 g/dL (2.4-3.5); Glucose 117 mg/dL (70-105); Magnesium 2.2 mg/dL (1.6-2.6); Osmolality,Calculated 293 (280-300); Phosphorous 4.8 mg/dL (2.7-4.5); Potassium 3.9 mEq/L (3.5-5.1); Sodium 140 mEq/L (136-145); Total Protein 6.8 g/dL (6.4-8.9); Troponin I < 0.03 ng/mL (< 0.04); eGFR For African Americans > 60 (> 60); eGFR For Non-African Americans > 60 (> 60)
[2020-12-12 08:34] LABS: Chol/HDL Ratio 4.7 (0-4.9); Cholesterol 126 mg/dL (< 200); HDL Cholesterol 27 mg/dL (40-59); LDL Cholesterol,Calculated 71 mg/dL (< 100); Triglycerides 139 mg/dL (< 150)
[2020-12-12 08:47] LABS: Thyroid Stimulating Hormone 1.734 mcIU/mL (0.340-5.600)
[2020-12-12 09:04] LABS: Estimated Average Glucose 134 mg/dl; Hemoglobin A1C 6.3 %
[2020-12-12] MEDS ORDERED: Regadenoson 0.4 MG/5 ML SYRINGE IVP ONE (10:16)
[2020-12-12] MEDS ORDERED: D5% in Water 1,000 ML IVC PRN (12:39)
[2020-12-12] MEDS ORDERED: Dextrose Gel 15 GM/37.5 ML TUBE PO PRN ×2 (12:39)
[2020-12-12] MEDS ORDERED: *HR* Dextrose 50 % in Water (Vial) 50 ML VIAL IVP PRN (12:39)
[2020-12-12] MEDS ORDERED: cloNIDine HCL 0.1 MG TABLET PO PRN (13:40)
[2020-12-12 14:29] VITALS: BP 143/92; PULSE 76; TEMP 97.8; O2SAT 97
[2020-12-12] MEDS ORDERED: Insulin LISPRO 300 UNITS/3 ML VIAL SUBQ SCH ×2 (16:30→21:00)
[2020-12-12] MEDS ORDERED: carvediloL 6.25 MG TABLET PO SCH (17:00)
[2020-12-12] MEDS ORDERED: *HR* Heparin 5,000 UNIT/ML VIAL SQ SCH (18:00)
[2020-12-13] MEDS ORDERED: amLODIPine 5 MG TABLET PO SCH (09:00)
== END 2020-12-12 18:46 | disposition home or self-care (01) ==
LOC: EMEROOARM 20:02 → 3ANU 20:02 → SUATTDRO 12-12 01:09 → 3ANU 12-12 02:55
PROVIDERS: ADMIT Family Medicine; ATTEND Internal Medicine